=== PATIENT | female | born 1985 | race Caucasian/White ===

== ENCOUNTER 2019-01-19 16:10 | Emergency (ER) | payer BC ==
[2019-01-19] MEDS ORDERED: LORazepam 2 MG/ML INJ IV STA ×2 (17:20→19:08)
[2019-01-19] MEDS ORDERED: LIDOCAINE 1% INJ 10MG/ML (20 ML MDV) SQ ONE (17:20)
[2019-01-19 17:46] LABS: Appearance,Urine Clear (Clear); Bacteria,Urine Occasional /hpf; Bilirubin,Urine Negative (Negative); Blood,Urine Negative (Negative); Color,Urine Colorless; Glucose,Urine (UA) Negative (Negative); Ketones,Urine Negative (Negative); Leukocyte Esterase,Urine Trace (Negative); Mucus,Urine Rare /hpf; Nitrite,Urine Negative (Negative); PH, Urine 5.5 (5.0-8.0); Protein,Urine Negative (Negative); RBC,Urine 1 /hpf (0-5); Specific Gravity,Urine 1.003 (1.001-1.035); Squamous Epithelial Cell,Urine <1 /hpf (0-4); Urobilinogen,Urine <2.0 mg/dL (<2.0)
[2019-01-19 18:11] LABS: Basophils % (A) 0 %; Eosinophils # (A) 0.1 k/uL (0-0.7); Eosinophils % (A) 1 %; HGB 13.4 gm/dL (11.4-16.0); Lymphocytes # (A) 2.1 k/uL (1.0-4.8); Lymphocytes % (A) 17 %; MCH 30.9 pg (25.0-35.0); MCHC 33.5 g/dL (31.0-37.0); MCV 92.5 fL (80.0-100.0); Mean Platelet Volume 7.3; Monocytes # (A) 0.5 k/uL (0-1.0); Monocytes % (A) 4 %; Neutrophils # (A) 9.3 k/uL (1.3-7.7); Neutrophils % (A) 77 %; Platelet Count 263 k/uL (150-450); RBC 4.33 m/uL (3.80-5.40); RDW 14.1 % (11.5-15.5); WBC 12.2 k/uL (3.8-10.6)
[2019-01-19 18:21] LABS: ALT 15 U/L (9-52); AST 23 U/L (14-36); African American GFR (CKD) >90 (>60 ml/min/1.73 sqM); Albumin 4.7 g/dL (3.5-5.0); Alkaline Phosphatase 86 U/L (38-126); Anion Gap 12 mmol/L; Blood Urea Nitrogen 9 mg/dL (7-17); Calcium 9.7 mg/dL (8.4-10.2); Carbon Dioxide 22 mmol/L (22-30); Chloride 107 mmol/L (98-107); Glucose 95 mg/dL (74-99); Potassium 4.2 mmol/L (3.5-5.1); Sodium 141 mmol/L (137-145); Total Bilirubin 0.6 mg/dL (0.2-1.3); Total Protein 8.6 g/dL (6.3-8.2)
[2019-01-19] MEDS ORDERED: KETOROLAC 30 MG/ML 1 ML VIAL IVP STA (18:21)
--- NOTE | 2019-01-19 18:34 | ED ---
Skin/Abscess/FB HPI - General Chief complaint: Skin/Abscess/Foreign Body Stated complaint: Cyst on tailbone Time Seen by Provider: 01/19/19 16:42 Source: patient Mode of arrival: ambulatory Limitations: no limitations - History of Present Illness Initial comments: Patient is a 33-year-old female presenting to the emergency Department with complaints of an abscess on her tailbone 5 days. Patient states she noticed an increase in pain presently 5 days ago, went to see her PCP 3 days ago and she was started on Bactrim. Patient then had an appointment with Dr. Benz today to have the area drained. Patient states she has severe anxiety towards needles and they were not able to perform the procedure in the office secondary to not having Ativan. Dr. Benz suggested she come to the ER for I&D and he will surgically clean out the wound next week. Patient states her pain has greatly increased last few days. Patient is also feeling intermittent warmth and chills. Patient denies nausea, vomiting, abdominal pain. Upon arrival to ER, vital signs stable, afebrile. - Related Data Home Medications Medication Instructions Recorded Confirmed Levothyroxine Sodium [Synthroid] 88 mcg PO DAILY 01/19/19 01/19/19 Nitrofurantoin Macrocrystal 100 mg PO DAILY PRN 01/19/19 01/19/19 [Macrodantin] Sulfamethox-Tmp 800-160Mg [Bactrim 1 tab PO Q12H 01/19/19 01/19/19 DS 800-160 mg] Allergies Allergy/AdvReac Type Severity Reaction Status Date / Time betamethasone Allergy Unknown Verified 01/19/19 16:44 [From [employer]] latex Allergy Unknown Verified 01/19/19 16:44 Pertussis Vaccines Allergy Unknown Verified 01/19/19 16:44 Review of Systems ROS Statement: Those systems with pertinent positive or pertinent negative responses have been documented in the HPI. ROS Other: All systems not noted in ROS Statement are negative. Past Medical History Past Medical History: Thyroid Disorder Additional Past Medical History / Comment(s): UTI History of Any Multi-Drug Resistant Organisms: None Reported Past Surgical History: Appendectomy, Breast Surgery, Hernia Repair, Orthopedic Surgery Past Psychological History: No Psychological Hx Reported Smoking Status: Never smoker Past Alcohol Use History: None Reported Past Drug Use History: None Reported General Exam - General Exam Comments Initial Comments: GENERAL: Well-appearing, well-nourished and in no acute distress. Patient does appear anxious. HEAD: Atraumatic, normocephalic. EYES: Pupils equal round and reactive to light, extraocular movements intact, sclera anicteric, conjunctiva are normal. ENT: TMs normal, nares patent, oropharynx clear without exudates. Moist mucous membranes. NECK: Normal range of motion, supple without lymphadenopathy or JVD. LUNGS: Breath sounds clear to auscultation bilaterally and equal. No wheezes rales or rhonchi. HEART: Regular rate and rhythm without murmurs, rubs or gallops. ABDOMEN: Soft, nontender, normoactive bowel sounds. No guarding, no rebound. No masses appreciated. : Deferred EXTREMITIES: Normal range of motion, no pitting or edema. No clubbing or cyanosis. NEUROLOGICAL: Cranial nerves II through XII grossly intact. Normal speech, normal gait. PSYCH: Normal mood, normal affect. SKIN: Warm, Dry, normal turgor, no rashes. Patient has a moderate area, 2cm diameter, of erythema and induration on the right upper glut consistent with abscess . No area of fluctuance. Painful to the touch. Limitations: no limitations Course Vital Signs 01/19/19 01/19/19 01/19/19 16:16 18:20 19:00 Temperature 99.0 F Pulse Rate 106 H 115 H 103 H Respiratory 18 20 20 Rate Blood Pressure 117/78 100/67 102/55 O2 Sat by Pulse 100 99 99 Oximetry Procedures - Incision & Drainage Consent Obtained: verbal consent Indication: Abscess Site: other (Right glute, pilondinal) Size (cm): 2 (2cm diameter) Anesthetic Used: lidocaine 1% Amount (mLs): 3 I&D Cleaning Method: Chloroprep Sterile Field Used?: Yes Scalpel Used: #11 I&D Drainage Obtained: Pus (small amount), Blood Culture Obtained?: No Patient Tolerated Procedure: well Medical Decision Making - Medical Decision Making Patient is a 33-year-old female presenting with a pilonidal abscess for approximately 4-5 days. Pt went to Dr. Benz's office today for possible I&D however she was sent to the ER after they did not have Ativan in the office for her anxiety. Patient has severe anxiety towards needles. On exam patient has moderate area of erythema and induration on the right upper glute. Patient has pain with palpation. Patient denies fever, chills, nausea, vomiting. Patient is currently on Bactrim for 2 days now. After patient received 2 of Ativan and Toradol, an I&D was performed. Small amount of purulent fluid was drained out but mostly blood. The area has a lot of induration. Patient tolerated procedure well. It was discussed with patient that she needs to continue with h eat packs and antibiotics as well as motrin and tylenol for pain. Follow-up with Dr. Benz next week as discussed. Patient is in agreement with this plan of care. Return parameters were discussed with the patient she verbalized understanding. Patient is stable for discharge at this time. Case discussed with Dr. Lee. - Lab Data Result diagrams: 01/19/19 18:00 01/19/19 18:00 Lab Results 01/19/19 01/19/19 01/19/19 Range/Units 17:20 18:00 18:00 WBC 12.2 H (3.8-10.6) k/uL RBC 4.33 (3.80-5.40) m/uL Hgb 13.4 (11.4-16.0) gm/dL Hct 40.0 (34.0-46.0) % MCV 92.5 (80.0-100.0) fL MCH 30.9 (25.0-35.0) pg MCHC 33.5 (31.0-37.0) g/dL RDW 14.1 (11.5-15.5) % Plt Count 263 (150-450) k/uL Neutrophils % 77 % Lymphocytes % 17 % Monocytes % 4 % Eosinophils % 1 % Basophils % 0 % Neutrophils # 9.3 H (1.3-7.7) k/uL Lymphocytes # 2.1 (1.0-4.8) k/uL Monocytes # 0.5 (0-1.0) k/uL Eosinophils # 0.1 (0-0.7) k/uL Basophils # 0.0 (0-0.2) k/uL Sodium 141 (137-145) mmol/L Potassium 4.2 (3.5-5.1) mmol/L Chloride 107 (98-107) mmol/L Carbon Dioxide 22 (22-30) mmol/L Anion Gap 12 mmol/L BUN 9 (7-17) mg/dL Creatinine 0.89 (0.52-1.04) mg/dL Est GFR (CKD-EPI)AfAm >90 (>60 ml/min/1.73 sqM) Est GFR (CKD-EPI)NonAf 86 (>60 ml/min/1.73 sqM) Glucose 95 (74-99) mg/dL Plasma Lactic Acid Crow (0.7-2.0) mmol/L Calcium 9.7 (8.4-10.2) mg/dL Total Bilirubin 0.6 (0.2-1.3) mg/dL AST 23 (14-36) U/L ALT 15 (9-52) U/L Alkaline Phosphatase 86 (38-126) U/L Total Protein 8.6 H (6.3-8.2) g/dL Albumin 4.7 (3.5-5.0) g/dL Urine Color Colorless Urine Appearance Clear (Clear) Urine pH 5.5 (5.0-8.0) Ur Specific [place] 1.003 (1.001-1.035) Urine Protein Negative (Negative) Urine Glucose (UA) Negative (Negative) Urine Ketones Negative (Negative) Urine Blood Negative (Negative) Urine Nitrite Negative (Negative) Urine Bilirubin Negative (Negative) Urine Urobilinogen <2.0 (<2.0) mg/dL Ur Leukocyte Esterase Trace H (Negative) Urine RBC 1 (0-5) /hpf Urine WBC 3 (0-5) /hpf Ur Squamous Epith Cells <1 (0-4) /hpf Urine Bacteria Occasional H (None) /hpf Urine Mucus Rare H (None) /hpf 01/19/19 Range/Units 18:00 WBC (3.8-10.6) k/uL RBC (3.80-5.40) m/uL Hgb (11.4-16.0) gm/dL Hct (34.0-46.0) % MCV (80.0-100.0) fL MCH (25.0-35.0) pg MCHC (31.0-37.0) g/dL RDW (11.5-15.5) % Plt Count (150-450) k/uL Neutrophils % % Lymphocytes % % Monocytes % % Eosinophils % % Basophils % % Neutrophils # (1.3-7.7) k/uL Lymphocytes # (1.0-4.8) k/uL Monocytes # (0-1.0) k/uL Eosinophils # (0-0.7) k/uL Basophils # (0-0.2) k/uL Sodium (137-145) mmol/L Potassium (3.5-5.1) mmol/L Chloride (98-107) mmol/L Carbon Dioxide (22-30) mmol/L Anion Gap mmol/L BUN (7-17) mg/dL Creatinine (0.52-1.04) mg/dL Est GFR (CKD-EPI)AfAm (>60 ml/min/1.73 sqM) Est GFR (CKD-EPI)NonAf (>60 ml/min/1.73 sqM) Glucose (74-99) mg/dL Plasma Lactic Acid Crow 1.5 (0.7-2.0) mmol/L Calcium (8.4-10.2) mg/dL Total Bilirubin (0.2-1.3) mg/dL AST (14-36) U/L ALT (9-52) U/L Alkaline Phosphatase (38-126) U/L Total Protein (6.3-8.2) g/dL Albumin (3.5-5.0) g/dL Urine Color Urine Appearance (Clear) Urine pH (5.0-8.0) Ur Specific [place] (1.001-1.035) Urine Protein (Negative) Urine Glucose (UA) (Negative) Urine Ketones (Negative) Urine Blood (Negative) Urine Nitrite (Negative) Urine Bilirubin (Negative) Urine Urobilinogen (<2.0) mg/dL Ur Leukocyte Esterase (Negative) Urine RBC (0-5) /hpf Urine WBC (0-5) /hpf Ur Squamous Epith Cells (0-4) /hpf Urine Bacteria (None) /hpf Urine Mucus (None) /hpf Disposition Clinical Impression: Pilonidal abscess Disposition: HOME SELF-CARE Condition: Stable Instructions (If sedation given, give patient instructions): Abscess (ED) Additional Instructions: Please return to the Emergency Department if symptoms worsen or any other concerns. Continue with Tylenol/Motrin for pain relief. Follow-up with Dr. Benz next week as discussed. Is patient prescribed a controlled substance at d/c from ED?: No Referrals: Shant Wallace MD [Primary Care Provider] - 1-2 days
[2019-01-19 20:48] VITALS: BP 102/65; PULSE 88; RESP 20; TEMP 98.2
== END 2019-01-19 20:40 | disposition home or self-care (01) ==
LOC: EC 16:10
DX: L05.01 Pilonidal cyst with abscess (principal); F41.9 Anxiety disorder, unspecified; E07.9 Disorder of thyroid, unspecified; Z79.890 Hormone replacement therapy; Z88.8 Allergy status to other drugs, medicaments and biological substances; Z91.040 Latex allergy status; Z88.7 Allergy status to serum and vaccine
CPT/HCPCS: 36415; 80053; 83605; 85025; 81001; 99283; 10080; 96374; 96375; 96376; J2060; J2001; J1885

== ENCOUNTER 2019-01-22 01:23 | Emergency (ER) | payer BC ==
[2019-01-22] MEDS ORDERED: KETOROLAC 30 MG/ML 1 ML VIAL IVP STA (02:31)
[2019-01-22] MEDS: SODIUM CHLORIDE 0.9% 500 ML 500 ML IV SCH (02:51)
--- NOTE | 2019-01-22 02:55 | XR ---
EXAM: XR Abdomen, 2 Views CLINICAL HISTORY: Abdominal pain TECHNIQUE: Frontal view of the abdomen/pelvis with upright view of the abdomen. COMPARISON: None. FINDINGS: Lower thorax: Heart is normal in size. Lung bases are clear. Intraperitoneal space: No free air Gastrointestinal tract: Mild to moderate quantity of stool. Nonspecific bowel gas pattern. No dilation. Bones/joints: Gentle levoscoliosis of the freckle lumbar spine. IMPRESSION: Mild to moderate quantity of stool. Nonspecific bowel gas pattern.
[2019-01-22 03:26] LABS: Appearance,Urine Clear (Clear); Bacteria,Urine Rare /hpf; Bilirubin,Urine Negative (Negative); Blood,Urine Trace (Negative); Color,Urine Colorless; Glucose,Urine (UA) Negative (Negative); Ketones,Urine Negative (Negative); Leukocyte Esterase,Urine Negative (Negative); Mucus,Urine Rare /hpf; Nitrite,Urine Negative (Negative); PH, Urine 5.5 (5.0-8.0); Protein,Urine Negative (Negative); RBC,Urine 1 /hpf (0-5); Specific Gravity,Urine 1.005 (1.001-1.035); Squamous Epithelial Cell,Urine 1 /hpf (0-4); Urobilinogen,Urine <2.0 mg/dL (<2.0); WBC,Urine 1 /hpf (0-5)
[2019-01-22 03:30] LABS: Albumin 4.3 g/dL (3.5-5.0); Calcium 9.3 mg/dL (8.4-10.2); Potassium 3.9 mmol/L (3.5-5.1); Total Bilirubin 0.4 mg/dL (0.2-1.3); Total Protein 7.9 g/dL (6.3-8.2)
[2019-01-22 03:59] LABS: Basophils # (A) 0.1 k/uL (0-0.2); Basophils % (A) 1 %; Eosinophils # (A) 0.2 k/uL (0-0.7); Eosinophils % (A) 2 %; HCT 38.2 % (34.0-46.0); Lymphocytes # (A) 1.5 k/uL (1.0-4.8); Lymphocytes % (A) 15 %; MCH 31.2 pg (25.0-35.0); MCV 91.6 fL (80.0-100.0); Monocytes # (A) 0.6 k/uL (0-1.0); Monocytes % (A) 6 %; Neutrophils # (A) 7.4 k/uL (1.3-7.7); Neutrophils % (A) 74 %; Platelet Count 232 k/uL (150-450); RBC 4.17 m/uL (3.80-5.40); WBC 9.9 k/uL (3.8-10.6)
[2019-01-22] MEDS ORDERED: ACET/COD 300 MG/30 MG STARTER PACK 6 TAB BTL PO STA (04:37)
[2019-01-22] MEDS ORDERED: ONDANSETRON 4 MG ODT STARTER PACK 2 TAB BTL PO STA (04:37)
--- NOTE | 2019-01-22 04:40 | ED ---
General Adult HPI - General Chief complaint: Dizziness Stated complaint: nausea/dizziness Time Seen by Provider: 01/22/19 01:40 Source: patient Mode of arrival: ambulatory Limitations: no limitations - History of Present Illness Initial comments: 33-year-old female patient presents to the emergency department today for evaluation of dizziness and abdominal pain. Patient recently was diagnosed with pilonidal abscess and did have incision and drainage recently in this emergency department. Patient states that the pain has been worsening to the area. States she's had minimal drainage. States that she has felt chilled but denies any known fever. States she has been nauseated but has had no vomiting. Patient is reporting generalized abdominal cramping. States that she has not had a bowel movement in the last 3 days. She is concerned she may have a bowel obstruction. Denies history of abdominal surgery or obstruction. Patient denies any recent rash, shortness breath, chest pain, back pain, numbness, tingling, dizziness, weakness, hematuria, dysuria, urinary urgency, urinary frequency, headache, visual changes, or any other complaints. - Related Data Home Medications Medication Instructions Recorded Confirmed Levothyroxine Sodium [Synthroid] 88 mcg PO DAILY 01/19/19 01/19/19 Nitrofurantoin Macrocrystal 100 mg PO DAILY PRN 01/19/19 01/19/19 [Macrodantin] Sulfamethox-Tmp 800-160Mg [Bactrim 1 tab PO Q12H 01/19/19 01/19/19 DS 800-160 mg] Previous Rx's Medication Instructions Recorded Docusate [Colace] 100 mg PO DAILY #15 capsule 01/22/19 Sulfamethoxazole/Trimethoprim 2 each PO BID #28 tablet 01/22/19 [Bactrim DS 800-160 mg] Allergies Allergy/AdvReac Type Severity Reaction Status Date / Time betamethasone Allergy Unknown Verified 01/19/19 16:44 [From [employer]] latex Allergy Unknown Verified 01/19/19 16:44 Pertussis Vaccines Allergy Unknown Verified 01/19/19 16:44 Review of Systems ROS Statement: Those systems with pertinent positive or pertinent negative responses have been documented in the HPI. ROS Other: All systems not noted in ROS Statement are negative. Past Medical History Past Medical History: Thyroid Disorder Additional Past Medical History / Comment(s): UTI History of Any Multi-Drug Resistant Organisms: None Reported Past Surgical History: Appendectomy, Breast Surgery, Hernia Repair, Orthopedic Surgery Past Psychological History: No Psychological Hx Reported Smoking Status: Never smoker Past Alcohol Use History: None Reported Past Drug Use History: None Reported General Exam Limitations: no limitations General appearance: alert, in no apparent distress, other (This is a well- developed, well-nourished adult female patient in no acute distress. Vital signs upon presentation are temperature 98.5F, pulse 95, respirations 20, blood pressure 105/70, pulse ox 100% on room air.) Eye exam: Present: normal appearance, PERRL, EOMI. Absent: scleral icterus, conjunctival injection, periorbital swelling ENT exam: Present: normal exam, normal oropharynx, mucous membranes moist Respiratory exam: Present: normal lung sounds bilaterally. Absent: respiratory distress, wheezes, rales, rhonchi, stridor Cardiovascular Exam: Present: regular rate, normal rhythm, normal heart sounds. Absent: systolic murmur, diastolic murmur, rubs, gallop, clicks GI/Abdominal exam: Present: soft, normal bowel sounds. Absent: distended, tenderness, guarding, rebound, rigid External exam: Present: other (pilonoidal abscess to right upper gluteal cleft. There is surrounding induration and erythema. No current drainage. ) Neurological exam: Present: alert, oriented X3, CN II-XII intact Psychiatric exam: Present: normal affect, normal mood Skin exam: Present: warm, dry, intact, normal color. Absent: rash Course Vital Signs 01/22/19 01/22/19 01:31 04:54 Temperature 98.5 F 99.1 F Pulse Rate 95 92 Respiratory 20 18 Rate Blood Pressure 105/70 96/54 O2 Sat by Pulse 100 100 Oximetry Medical Decision Making - Medical Decision Making 33-year-old female patient presents to the emergency department today for evaluation of dizziness, abdominal pain, nausea, and evaluation of her pilonidal abscess. Physical examination revealed generalized abdominal discomfort, abdomen is soft. There is evidence for pilonidal abscess to the right upper gluteal cleft. No current drainage. There is surrounding erythema and induration. This has been incised. Labs reviewed and are unremarkable. Vital signs are within normal ranges, no fever. I did discuss findings and results with the patient. After receiving medication and IV fluids here in the emergency department she is feeling better. We'll increase her dosage of Bactrim to 2 tablets twice daily. She'll be given starter packs for pain medication, nausea medication and prescription for stool softener. She is instructed to follow-up with her surgeon on Wednesday. Return parameters were discussed in detail. She verbalizes understanding and agrees with this plan. - Lab Data Result diagrams: 01/22/19 03:05 01/22/19 03:05 Lab Results 01/22/19 01/22/19 01/22/19 Range/Units 03:05 03:05 03:05 WBC 9.9 (3.8-10.6) k/uL RBC 4.17 (3.80-5.40) m/uL Hgb 13.0 (11.4-16.0) gm/dL Hct 38.2 (34.0-46.0) % MCV 91.6 (80.0-100.0) fL MCH 31.2 (25.0-35.0) pg MCHC 34.0 (31.0-37.0) g/dL RDW 14.0 (11.5-15.5) % Plt Count 232 (150-450) k/uL Neutrophils % 74 % Lymphocytes % 15 % Monocytes % 6 % Eosinophils % 2 % Basophils % 1 % Neutrophils # 7.4 (1.3-7.7) k/uL Lymphocytes # 1.5 (1.0-4.8) k/uL Monocytes # 0.6 (0-1.0) k/uL Eosinophils # 0.2 (0-0.7) k/uL Basophils # 0.1 (0-0.2) k/uL Sodium 140 (137-145) mmol/L Potassium 3.9 (3.5-5.1) mmol/L Chloride 106 (98-107) mmol/L Carbon Dioxide 22 (22-30) mmol/L Anion Gap 12 mmol/L BUN 15 (7-17) mg/dL Creatinine 1.04 (0.52-1.04) mg/dL Est GFR (CKD-EPI)AfAm 83 (>60 ml/min/1.73 sqM) Est GFR (CKD-EPI)NonAf 72 (>60 ml/min/1.73 sqM) Glucose 98 (74-99) mg/dL Plasma Lactic Acid Crow 1.2 (0.7-2.0) mmol/L Calcium 9.3 (8.4-10.2) mg/dL Total Bilirubin 0.4 (0.2-1.3) mg/dL AST 22 (14-36) U/L ALT 17 (9-52) U/L Alkaline Phosphatase 79 (38-126) U/L Total Protein 7.9 (6.3-8.2) g/dL Albumin 4.3 (3.5-5.0) g/dL Urine Color Urine Appearance (Clear) Urine pH (5.0-8.0) Ur Specific [place] (1.001-1.035) Urine Protein (Negative) Urine Glucose (UA) (Negative) Urine Ketones (Negative) Urine Blood (Negative) Urine Nitrite (Negative) Urine Bilirubin (Negative) Urine Urobilinogen (<2.0) mg/dL Ur Leukocyte Esterase (Negative) Urine RBC (0-5) /hpf Urine WBC (0-5) /hpf Ur Squamous Epith Cells (0-4) /hpf Urine Bacteria (None) /hpf Urine Mucus (None) /hpf 01/22/19 Range/Units 03:05 WBC (3.8-10.6) k/uL RBC (3.80-5.40) m/uL Hgb (11.4-16.0) gm/dL Hct (34.0-46.0) % MCV (80.0-100.0) fL MCH (25.0-35.0) pg MCHC (31.0-37.0) g/dL RDW (11.5-15.5) % Plt Count (150-450) k/uL Neutrophils % % Lymphocytes % % Monocytes % % Eosinophils % % Basophils % % Neutrophils # (1.3-7.7) k/uL Lymphocytes # (1.0-4.8) k/uL Monocytes # (0-1.0) k/uL Eosinophils # (0-0.7) k/uL Basophils # (0-0.2) k/uL Sodium (137-145) mmol/L Potassium (3.5-5.1) mmol/L Chloride (98-107) mmol/L Carbon Dioxide (22-30) mmol/L Anion Gap mmol/L BUN (7-17) mg/dL Creatinine (0.52-1.04) mg/dL Est GFR (CKD-EPI)AfAm (>60 ml/min/1.73 sqM) Est GFR (CKD-EPI)NonAf (>60 ml/min/1.73 sqM) Glucose (74-99) mg/dL Plasma Lactic Acid Crow (0.7-2.0) mmol/L Calcium (8.4-10.2) mg/dL Total Bilirubin (0.2-1.3) mg/dL AST (14-36) U/L ALT (9-52) U/L Alkaline Phosphatase (38-126) U/L Total Protein (6.3-8.2) g/dL Albumin (3.5-5.0) g/dL Urine Color Colorless Urine Appearance Clear (Clear) Urine pH 5.5 (5.0-8.0) Ur Specific [place] 1.005 (1.001-1.035) Urine Protein Negative (Negative) Urine Glucose (UA) Negative (Negative) Urine Ketones Negative (Negative) Urine Blood Trace H (Negative) Urine Nitrite Negative (Negative) Urine Bilirubin Negative (Negative) Urine Urobilinogen <2.0 (<2.0) mg/dL Ur Leukocyte Esterase Negative (Negative) Urine RBC 1 (0-5) /hpf Urine WBC 1 (0-5) /hpf Ur Squamous Epith Cells 1 (0-4) /hpf Urine Bacteria Rare H (None) /hpf Urine Mucus Rare H (None) /hpf Disposition Clinical Impression: Pilonidal abscess, Dizziness, Abdominal pain Disposition: HOME SELF-CARE Condition: Good Instructions (If sedation given, give patient instructions): Pilonidal Cyst (ED), Abdominal Pain (ED), Dizziness (ED) Additional Instructions: Increase bactrim dosage to two tablets twice per day. Increase fluids. Follow up with your surgeon Wednesday. Return to the emergency department for any new, worsening, or concerning symptoms. Prescriptions: Sulfamethoxazole/Trimethoprim [Bactrim DS 800-160 mg] 2 each PO BID #28 tablet Docusate [Colace] 100 mg PO DAILY #15 capsule Is patient prescribed a controlled substance at d/c from ED?: No Referrals: Shant Wallace MD [Primary Care Provider] - 1-2 days Mark Benz MD [STAFF PHYSICIAN] - 1-2 days Time of Disposition: 04:39
[2019-01-22 04:55] VITALS: BP 96/54; PULSE 92; RESP 18; TEMP 99.1
== END 2019-01-22 04:55 | disposition home or self-care (01) ==
LOC: EC 01:23
DX: L05.01 Pilonidal cyst with abscess (principal); R42 Dizziness and giddiness; R10.9 Unspecified abdominal pain; E07.9 Disorder of thyroid, unspecified; Z79.890 Hormone replacement therapy; Z88.8 Allergy status to other drugs, medicaments and biological substances; Z88.7 Allergy status to serum and vaccine; Z91.040 Latex allergy status
CPT/HCPCS: 36415; 80053; 83605; 85025; 81001; 87040; 74018; 99284; 96374; 96361 ×2; J1885; S0119

== ENCOUNTER 2019-01-31 09:44 | Day surgery (SDC) | payer BC ==
[2019-01-30 08:33] VITALS: BMI 23.8
[~2019-01-31 09:44] MED LIST: HEPARIN SODIUM,PORCINE 5,000 UNIT/ML 1 ML VIAL SQ ONE; HYDROmorphone 0.5 MG/0.5 ML SYRINGE IVP PRN; KETOROLAC 30 MG/ML 1 ML VIAL IVP SCH; LACTATED RINGERS 1,000 ML IV SCH; LIDOCAINE 1% 20 ML VIAL (10MG/ML) FOR IV START INTRADERMA PRN; METOCLOPRAMIDE 5 MG/ML 2 ML VIAL IVP PRN; ONDANSETRON 4 MG/2 ML VIAL IVP ONE; SCOPOLAMINE 1.5MG/72HR PATCH TRANSDERM ONE; metroNIDAZOLE-NS PMX 500 MG in SALINE 1 100ML.BAG IVPB ONE
[2019-01-31 10:38] VITALS: RESP 18; TEMP 97.5
[2019-01-31] MEDS ORDERED: DEXAMETHASONE SOD PHOSPHATE 10 MG/ML 1 ML VIAL IV ONE (10:46)
[2019-01-31] MEDS ORDERED: MIDAZOLAM (PF) 2 MG/2 ML VIAL IVP ONE (10:48)
--- NOTE | 2019-01-31 10:48 | P.GSHP ---
History of Present Illness H&P Date: 01/31/19 Chief Complaint: Chronically inflamed pilonidal cyst This a 31-year-old female with history of a chronically inflamed pilonidal cyst. Patient was assessed today for excision. Patient aware that we'll be packed after surgery and require local wound care. Past Medical History Past Medical History: Pulmonary Embolus (PE), Thyroid Disorder Additional Past Medical History / Comment(s): pilonidal cyst, possible current sinus infection, uterine polyps History of Any Multi-Drug Resistant Organisms: None Reported Past Surgical History: Appendectomy, Breast Surgery, Hernia Repair, Orthopedic Surgery Past Anesthesia/Blood Transfusion Reactions: Postoperative Nausea & Vomiting (PONV) Smoking Status: Former smoker - Past Family History Mother Family Medical History: No Reported History Medications and Allergies Home Medications Medication Instructions Recorded Confirmed Type Levothyroxine Sodium [Synthroid] 88 mcg PO DAILY 01/19/19 01/31/19 History Sulfamethox-Tmp 800-160Mg [Bactrim 1 tab PO TID 01/19/19 01/31/19 History DS 800-160 mg] Aspirin [Adult Low Dose Aspirin EC] 81 mg PO DAILY 01/30/19 01/31/19 History Allergies Allergy/AdvReac Type Severity Reaction Status Date / Time betamethasone Allergy Unknown Verified 01/31/19 10:33 [From [employer]] latex Allergy Rash/Hives Verified 01/30/19 08:26 lorazepam [From Ativan] Allergy Unknown Verified 01/31/19 10:33 Pertussis Vaccines Allergy Rash/Hives Verified 01/30/19 08:26 Surgical - Exam Vital Signs Temp Pulse Resp BP Pulse Ox 97.5 F L 95 18 113/77 96 01/31/19 10:36 01/31/19 10:36 01/31/19 10:36 01/31/19 10:36 01/31/19 10:36 - General well developed, well nourished, no distress - Eyes PERRL - ENT normal pinna - Neck no masses - Respiratory normal expansion - Cardiovascular Rhythm: regular - Abdomen Abdomen: soft, non tender Assessment and Plan Assessment: Pilonidal cyst. We'll perform excision.
[2019-01-31] MEDS ORDERED: HEPARIN SODIUM,PORCINE 5,000 UNIT/ML 1 ML VIAL SQ ONE (10:52)
[2019-01-31 10:53] LABS: Glucose,Whole Blood 82 mg/dL (75-99)
[2019-01-31] MEDS ORDERED: PROPOFOL 10 MG/ML 20 ML VIAL IV ONE (11:06)
[2019-01-31] MEDS ORDERED: MIDAZOLAM 2 MG/2 ML VIAL ONE (11:06)
[2019-01-31] MEDS ORDERED: KETAMINE 10 MG/ML 20 ML VIAL ONE (11:06)
[2019-01-31] MEDS ORDERED: BUPIVACAINE (PF) 0.5% 30 ML VIAL SQ ONE (11:16)
[2019-01-31] MEDS ORDERED: BUPIVACAIN-EPI 0.25%-1:200,000 30 ML VIAL SQ ONE (11:16)
--- NOTE | 2019-01-31 11:32 | P.OP ---
Date of Procedure: 01/31/19 Preoperative Diagnosis: Chronically inflamed pilonidal cyst with abscess Postoperative Diagnosis: Chronically inflamed pilonidal cyst with abscess Procedure(s) Performed: Excision of pilonidal cyst Anesthesia: MAC Surgeon: Mark Benz Estimated Blood Loss (ml): 5 Pathology: other (Pilonidal cyst) Condition: stable Disposition: PACU Description of Procedure: The patient's placed on the operating table in the prone position she received IV sedation. The hepatocystic was prepped and draped usual sterile fashion. Elliptical skin incision was made around panel cyst and then using electrocautery the panel cyst was excised. The Bovie was used for hemostasis. The wound was packed with dry Kerlix. Patient top she will was sent to recovery room in stable condition.
[2019-01-31] MEDS ORDERED: ACETAMINOPHEN TAB 325 MG TAB PO ONE (12:50)
[2019-01-31 14:09] VITALS: BP 91/61; PULSE 87
== END 2019-01-31 13:38 | disposition home or self-care (01) ==
LOC: OR 09:44
PROVIDERS: ATTEND Surgery
DX: L05.01 Pilonidal cyst with abscess (principal); E07.9 Disorder of thyroid, unspecified; Z86.711 Personal history of pulmonary embolism; Z87.891 Personal history of nicotine dependence; Z79.890 Hormone replacement therapy; Z79.82 Long term (current) use of aspirin; Z79.2 Long term (current) use of antibiotics; Z91.040 Latex allergy status; Z88.7 Allergy status to serum and vaccine; Z88.8 Allergy status to other drugs, medicaments and biological substances; Z88.5 Allergy status to narcotic agent; Z90.49 Acquired absence of other specified parts of digestive tract; Z87.42 Personal history of other diseases of the female genital tract; Z98.890 Other specified postprocedural states
CPT/HCPCS: 81025; 88304; 11770; J2250 ×2; J1644; J1100; J0690; J2405; J2704

== ENCOUNTER 2019-02-08 14:42 | Inpatient (IN) | payer BC ==
[2019-02-08] MEDS ORDERED: SODIUM CHLORIDE 0.9% 1,000 ML IV ONE (15:30)
--- NOTE | 2019-02-08 15:42 | ED ---
Skin/Abscess/FB HPI - General Source: patient, RN notes reviewed, old records reviewed Mode of arrival: ambulatory <Betsy Mendez - Last Filed: 02/08/19 19:55> <Dana Candelaria - Last Filed: 02/09/19 06:38> - General Chief complaint: Skin/Abscess/Foreign Body Stated complaint: Hemorrhage Time Seen by Provider: 02/08/19 15:04 - History of Present Illness Initial comments: This Patient is a 33-year-old female. She presents emergency department today for bleeding from her pilonidal cyst. Patient reports that she had surgery approximately one week ago to remove the pilonidal cyst. This was done by Dr. Parsons. Patient states that she's had at home wound care and visiting nurses come to dress her wound. Patient reports that she saw Dr. Newman yesterday was packed. Patient reports that she had to be visiting nurses pack her wound in between that time she started noticed severe bleeding. She had a visiting nurse returned and hold pressure for over an hour and the wound continues to bleed. Patient states she soaked through multiple towels as well as multiple AVD pads. Patient states that she has history of blood clots, and has been taking aspirin because she's been laying around. She states that she did have some minor absent of chest pain. She states that she wonders if this could just be in her head. (Betsy Mendez) - Related Data Home Medications Medication Instructions Recorded Confirmed Levothyroxine Sodium [Synthroid] 88 mcg PO DAILY 01/19/19 02/08/19 Aspirin [Adult Low Dose Aspirin EC] 81 mg PO DAILY 01/30/19 02/08/19 Acetaminophen [Tylenol Extra 1,000 mg PO Q6H PRN 02/08/19 02/08/19 Strength] Ascorbic Acid [Vitamin C] 500 mg PO DAILY 02/08/19 02/08/19 Docusate [Colace] 100 mg PO DAILY 02/08/19 02/08/19 Multivitamins, Thera [Multivitamin 1 tab PO DAILY 02/08/19 02/08/19 (formulary)] Allergies Allergy/AdvReac Type Severity Reaction Status Date / Time betamethasone Allergy Unknown Verified 02/08/19 18:40 [From Celestone] latex Allergy Rash/Hives Verified 02/08/19 18:40 lorazepam [From Ativan] Allergy Unknown Verified 02/08/19 18:40 Pertussis Vaccines Allergy Rash/Hives Verified 02/08/19 18:40 Review of Systems ROS Other: All systems not noted in ROS Statement are negative. <Betsy Mendez - Last Filed: 02/08/19 19:55> ROS Other: All systems not noted in ROS Statement are negative. <Dana Candelaria - Last Filed: 02/09/19 06:38> ROS Statement: Those systems with pertinent positive or pertinent negative responses have been documented in the HPI. Past Medical History Past Medical History: Pulmonary Embolus (PE), Thyroid Disorder Additional Past Medical History / Comment(s): pilonidal cyst, possible current sinus infection, uterine polyps History of Any Multi-Drug Resistant Organisms: None Reported Past Surgical History: Appendectomy, Breast Surgery, Hernia Repair, Orthopedic Surgery Additional Past Surgical History / Comment(s): cyst drained Past Anesthesia/Blood Transfusion Reactions: Postoperative Nausea & Vomiting (PONV) Past Psychological History: No Psychological Hx Reported Smoking Status: Former smoker Past Alcohol Use History: None Reported Past Drug Use History: None Reported - Past Family History Mother Family Medical History: No Reported History <Betsy Mendez - Last Filed: 02/08/19 19:55> General Exam Head exam: Present: atraumatic, normocephalic, normal inspection Eye exam: Present: normal appearance, PERRL, EOMI. Absent: scleral icterus, conjunctival injection, periorbital swelling ENT exam: Present: normal exam, mucous membranes moist Neck exam: Present: normal inspection. Absent: tenderness, meningismus, lymphadenopathy Respiratory exam: Present: normal lung sounds bilaterally. Absent: respiratory distress, wheezes, rales, rhonchi, stridor Cardiovascular Exam: Present: regular rate, normal rhythm, normal heart sounds. Absent: systolic murmur, diastolic murmur, rubs, gallop, clicks GI/Abdominal exam: Present: soft, normal bowel sounds. Absent: distended, tenderness, guarding, rebound, rigid Extremities exam: Present: normal inspection, full ROM, normal capillary refill. Absent: tenderness, pedal edema, joint swelling, calf tenderness Back exam: Present: normal inspection, other (patient has packed pilionidal cyst that is actively bleeding. ) Neurological exam: Present: alert Psychiatric exam: Present: normal affect, normal mood Skin exam: Present: warm, dry, intact, normal color. Absent: rash <Betsy Mendez - Last Filed: 02/08/19 19:55> - General Exam Comments Initial Comments: 33 year old female, moderate discomfort. (Betsy Mendez) Course Vital Signs 02/08/19 02/08/19 02/08/19 14:47 16:16 17:53 Temperature 100.3 F H Pulse Rate 95 108 H 93 Respiratory 16 18 20 Rate Blood Pressure 121/84 109/65 91/53 O2 Sat by Pulse 100 100 97 Oximetry 02/08/19 02/08/19 02/08/19 19:36 21:48 22:44 Temperature Pulse Rate 87 82 86 Respiratory 20 16 20 Rate Blood Pressure 92/46 106/62 105/71 O2 Sat by Pulse 100 100 100 Oximetry Medical Decision Making - Lab Data Result diagrams: 02/08/19 15:09 02/08/19 15:09 - Radiology Data Radiology results: report reviewed <Betsy Mendez - Last Filed: 02/08/19 19:55> - Lab Data Result diagrams: 02/08/19 21:45 02/08/19 15:09 <Dana Candelaria - Last Filed: 02/09/19 06:38> - Medical Decision Making Patient is a 33 year old female with bleeding from pilionidal cyst surgery that occurred one week ago. Patient had packing changed from visiting nurses and bleeding started last night. At this time patient has bleeding from site. She has soaked through multiple dressings and towels. She also has a fever, and history of chest pain and PE. CT was completed and negative for PE. She has no other source of infection at this time. Discussed case with Dr. Lomax whom discussed with Dr. Benz, whom recommended repack and cautery. (Betsy Ibarra) I received the patient in sign out. Patient presented to the ER with bleeding from her operative site where she had a pilonidal cyst excision. The wound was instilled with lidocaine with epinephrine and bleeding was controlled. Upon reevaluation patient's quite anxious, noted to be hypotensive. Repeat hemoglobin was obtained and was decreased another 1.5 g from previous. This and we will plan to place the patient in observation for serial hemoglobin and reevaluation by her surgeon the morning. Patient is agreeable to this. Patient care was discussed with her primary care physician Dr. Wallace who accepts the admission (Dana Candelaria) - Lab Data Lab Results 02/08/19 02/08/19 02/08/19 Range/Units 15:09 15:09 15:09 WBC (3.8-10.6) k/uL RBC (3.80-5.40) m/uL Hgb (11.4-16.0) gm/dL Hct (34.0-46.0) % MCV (80.0-100.0) fL MCH (25.0-35.0) pg MCHC (31.0-37.0) g/dL RDW (11.5-15.5) % Plt Count (150-450) k/uL Neutrophils % % Lymphocytes % % Monocytes % % Eosinophils % % Basophils % % Neutrophils # (1.3-7.7) k/uL Lymphocytes # (1.0-4.8) k/uL Monocytes # (0-1.0) k/uL Eosinophils # (0-0.7) k/uL Basophils # (0-0.2) k/uL D-Dimer 1.88 H (<0.60) mg/L FEU Sodium (137-145) mmol/L Potassium (3.5-5.1) mmol/L Chloride (98-107) mmol/L Carbon Dioxide (22-30) mmol/L Anion Gap mmol/L BUN (7-17) mg/dL Creatinine (0.52-1.04) mg/dL Est GFR (CKD-EPI)AfAm (>60 ml/min/1.73 sqM) Est GFR (CKD-EPI)NonAf (>60 ml/min/1.73 sqM) Glucose (74-99) mg/dL POC Glucose (mg/dL) (75-99) mg/dL POC Glu [employer] ID Plasma Lactic Acid Crow 1.2 (0.7-2.0) mmol/L Calcium (8.4-10.2) mg/dL Total Bilirubin (0.2-1.3) mg/dL AST (14-36) U/L ALT (9-52) U/L Alkaline Phosphatase (38-126) U/L Troponin I (0.000-0.034) ng/mL Total Protein (6.3-8.2) g/dL Albumin (3.5-5.0) g/dL Urine Color Urine Appearance (Clear) Urine pH (5.0-8.0) Ur Specific [place] (1.001-1.035) Urine Protein (Negative) Urine Glucose (UA) (Negative) Urine Ketones (Negative) Urine Blood (Negative) Urine Nitrite (Negative) Urine Bilirubin (Negative) Urine Urobilinogen (<2.0) mg/dL Ur Leukocyte Esterase (Negative) Urine RBC (0-5) /hpf Urine WBC (0-5) /hpf Ur Squamous Epith Cells (0-4) /hpf Urine Mucus (None) /hpf Blood Type B Positive Blood Type Confirm Blood Type Recheck No Previous Record Bld Type Recheck Status CABO Indicated Antibody Screen NEGATIVE Spec Expiration Date 02/11/2019 - 230802/08/19 02/08/19 02/08/19 Range/Units 15:09 15:09 15:09 WBC 10.0 (3.8-10.6) k/uL RBC 3.68 L (3.80-5.40) m/uL Hgb 11.5 (11.4-16.0) gm/dL Hct 33.9 L (34.0-46.0) % MCV 92.2 (80.0-100.0) fL MCH 31.2 (25.0-35.0) pg MCHC 33.8 (31.0-37.0) g/dL RDW 15.5 (11.5-15.5) % Plt Count 319 (150-450) k/uL Neutrophils % 74 % Lymphocytes % 20 % Monocytes % 4 % Eosinophils % 1 % Basophils % 0 % Neutrophils # 7.3 (1.3-7.7) k/uL Lymphocytes # 2.0 (1.0-4.8) k/uL Monocytes # 0.4 (0-1.0) k/uL Eosinophils # 0.1 (0-0.7) k/uL Basophils # 0.0 (0-0.2) k/uL D-Dimer (<0.60) mg/L FEU Sodium 139 (137-145) mmol/L Potassium 3.9 (3.5-5.1) mmol/L Chloride 104 (98-107) mmol/L Carbon Dioxide 26 (22-30) mmol/L Anion Gap 9 mmol/L BUN 17 (7-17) mg/dL Creatinine 0.78 (0.52-1.04) mg/dL Est GFR (CKD-EPI)AfAm >90 (>60 ml/min/1.73 sqM) Est GFR (CKD-EPI)NonAf >90 (>60 ml/min/1.73 sqM) Glucose 92 (74-99) mg/dL POC Glucose (mg/dL) (75-99) mg/dL POC Glu [employer] ID Plasma Lactic Acid Crow (0.7-2.0) mmol/L Calcium 9.4 (8.4-10.2) mg/dL Total Bilirubin 0.4 (0.2-1.3) mg/dL AST 29 (14-36) U/L ALT 39 (9-52) U/L Alkaline Phosphatase 77 (38-126) U/L Troponin I <0.012 (0.000-0.034) ng/mL Total Protein 7.5 (6.3-8.2) g/dL Albumin 4.1 (3.5-5.0) g/dL Urine Color Urine Appearance (Clear) Urine pH (5.0-8.0) Ur Specific [place] (1.001-1.035) Urine Protein (Negative) Urine Glucose (UA) (Negative) Urine Ketones (Negative) Urine Blood (Negative) Urine Nitrite (Negative) Urine Bilirubin (Negative) Urine Urobilinogen (<2.0) mg/dL Ur Leukocyte Esterase (Negative) Urine RBC (0-5) /hpf Urine WBC (0-5) /hpf Ur Squamous Epith Cells (0-4) /hpf Urine Mucus (None) /hpf Blood Type Blood Type Confirm Blood Type Recheck Bld Type Recheck Status Antibody Screen Spec Expiration Date 02/08/19 02/08/19 02/08/19 Range/Units 15:09 15:09 18:18 WBC (3.8-10.6) k/uL RBC (3.80-5.40) m/uL Hgb (11.4-16.0) gm/dL Hct (34.0-46.0) % MCV (80.0-100.0) fL MCH (25.0-35.0) pg MCHC (31.0-37.0) g/dL RDW (11.5-15.5) % Plt Count (150-450) k/uL Neutrophils % % Lymphocytes % % Monocytes % % Eosinophils % % Basophils % % Neutrophils # (1.3-7.7) k/uL Lymphocytes # (1.0-4.8) k/uL Monocytes # (0-1.0) k/uL Eosinophils # (0-0.7) k/uL Basophils # (0-0.2) k/uL D-Dimer (<0.60) mg/L FEU Sodium (137-145) mmol/L Potassium (3.5-5.1) mmol/L Chloride (98-107) mmol/L Carbon Dioxide (22-30) mmol/L Anion Gap mmol/L BUN (7-17) mg/dL Creatinine (0.52-1.04) mg/dL Est GFR (CKD-EPI)AfAm (>60 ml/min/1.73 sqM) Est GFR (CKD-EPI)NonAf (>60 ml/min/1.73 sqM) Glucose (74-99) mg/dL POC Glucose (mg/dL) 130 H (75-99) mg/dL POC Glu [employer] ID Kira Francis Plasma Lactic Acid Crow (0.7-2.0) mmol/L Calcium (8.4-10.2) mg/dL Total Bilirubin (0.2-1.3) mg/dL AST (14-36) U/L ALT (9-52) U/L Alkaline Phosphatase (38-126) U/L Troponin I (0.000-0.034) ng/mL Total Protein (6.3-8.2) g/dL Albumin (3.5-5.0) g/dL Urine Color Light Yellow Urine Appearance Clear (Clear) Urine pH 5.5 (5.0-8.0) Ur Specific [place] 1.013 (1.001-1.035) Urine Protein Negative (Negative) Urine Glucose (UA) Negative (Negative) Urine Ketones Negative (Negative) Urine Blood Moderate H (Negative) Urine Nitrite Negative (Negative) Urine Bilirubin Negative (Negative) Urine Urobilinogen <2.0 (<2.0) mg/dL Ur Leukocyte Esterase Negative (Negative) Urine RBC 14 H (0-5) /hpf Urine WBC 1 (0-5) /hpf Ur Squamous Epith Cells <1 (0-4) /hpf Urine Mucus Rare H (None) /hpf Blood Type Blood Type Confirm B Positive Blood Type Recheck Bld Type Recheck Status Antibody Screen Spec Expiration Date 02/08/19 Range/Units 21:45 WBC 13.3 H (3.8-10.6) k/uL RBC 3.34 L (3.80-5.40) m/uL Hgb 10.1 L (11.4-16.0) gm/dL Hct 30.8 L (34.0-46.0) % MCV 92.0 (80.0-100.0) fL MCH 30.2 (25.0-35.0) pg MCHC 32.9 (31.0-37.0) g/dL RDW 13.4 (11.5-15.5) % Plt Count 326 (150-450) k/uL Neutrophils % 83 % Lymphocytes % 13 % Monocytes % 3 % Eosinophils % 0 % Basophils % 1 % Neutrophils # 11.0 H (1.3-7.7) k/uL Lymphocytes # 1.7 (1.0-4.8) k/uL Monocytes # 0.4 (0-1.0) k/uL Eosinophils # 0.0 (0-0.7) k/uL Basophils # 0.1 (0-0.2) k/uL D-Dimer (<0.60) mg/L FEU Sodium (137-145) mmol/L Potassium (3.5-5.1) mmol/L Chloride (98-107) mmol/L Carbon Dioxide (22-30) mmol/L Anion Gap mmol/L BUN (7-17) mg/dL Creatinine (0.52-1.04) mg/dL Est GFR (CKD-EPI)AfAm (>60 ml/min/1.73 sqM) Est GFR (CKD-EPI)NonAf (>60 ml/min/1.73 sqM) Glucose (74-99) mg/dL POC Glucose (mg/dL) (75-99) mg/dL POC Glu [employer] ID Plasma Lactic Acid Crow (0.7-2.0) mmol/L Calcium (8.4-10.2) mg/dL Total Bilirubin (0.2-1.3) mg/dL AST (14-36) U/L ALT (9-52) U/L Alkaline Phosphatase (38-126) U/L Troponin I (0.000-0.034) ng/mL Total Protein (6.3-8.2) g/dL Albumin (3.5-5.0) g/dL Urine Color Urine Appearance (Clear) Urine pH (5.0-8.0) Ur Specific [place] (1.001-1.035) Urine Protein (Negative) Urine Glucose (UA) (Negative) Urine Ketones (Negative) Urine Blood (Negative) Urine Nitrite (Negative) Urine Bilirubin (Negative) Urine Urobilinogen (<2.0) mg/dL Ur Leukocyte Esterase (Negative) Urine RBC (0-5) /hpf Urine WBC (0-5) /hpf Ur Squamous Epith Cells (0-4) /hpf Urine Mucus (None) /hpf Blood Type Blood Type Confirm Blood Type Recheck Bld Type Recheck Status Antibody Screen Spec Expiration Date 02/08/19 17:16 EKG shows a sinus rhythm with normal EKG noted. Ventricular rate of 87 bpm. PA interval is 154 ms. QRS duration is 74 ms. QT QTc is 370/445 ms. No evidence of ST elevation. (Betsy Mendez) - Radiology Data CT angio chest is negative for PE . (Betsy Mendez) Disposition <Betsy Mendez - Last Filed: 02/08/19 19:55> <Dana Candelaria - Last Filed: 02/09/19 06:38> Clinical Impression: Hypotension, Acute blood loss anemia Disposition: ADMITTED IP TO THIS HOSP Condition: Stable
[2019-02-08] MEDS: SODIUM CHLORIDE 0.9% 1,000 ML IV SCH (15:44)
[2019-02-08 15:48] LABS: Basophils % (A) 0 %; Eosinophils # (A) 0.1 k/uL (0-0.7); Eosinophils % (A) 1 %; HCT 33.9 % (34.0-46.0); HGB 11.5 gm/dL (11.4-16.0); Lymphocytes % (A) 20 %; MCH 31.2 pg (25.0-35.0); MCHC 33.8 g/dL (31.0-37.0); MCV 92.2 fL (80.0-100.0); Monocytes # (A) 0.4 k/uL (0-1.0); Monocytes % (A) 4 %; Neutrophils # (A) 7.3 k/uL (1.3-7.7); Neutrophils % (A) 74 %; Platelet Count 319 k/uL (150-450); RBC 3.68 m/uL (3.80-5.40); RDW 15.5 % (11.5-15.5)
[2019-02-08 16:00] LABS: ALT 39 U/L (9-52); AST 29 U/L (14-36); African American GFR (CKD) >90 (>60 ml/min/1.73 sqM); Albumin 4.1 g/dL (3.5-5.0); Alkaline Phosphatase 77 U/L (38-126); Anion Gap 9 mmol/L; Blood Urea Nitrogen 17 mg/dL (7-17); Calcium 9.4 mg/dL (8.4-10.2); Carbon Dioxide 26 mmol/L (22-30); Chloride 104 mmol/L (98-107); Glucose 92 mg/dL (74-99); Potassium 3.9 mmol/L (3.5-5.1); Sodium 139 mmol/L (137-145); Total Bilirubin 0.4 mg/dL (0.2-1.3); Total Protein 7.5 g/dL (6.3-8.2)
[2019-02-08] MEDS ORDERED: MORPHINE SULFATE 4 MG/ML SYRINGE IVP STA (16:16)
--- NOTE | 2019-02-08 16:42 | CT ---
EXAMINATION TYPE: CT chest angio for PE DATE OF EXAM: 02/08/2019 COMPARISON: NONE HISTORY: chest pain, increased d-dimer post pilonidal cyst surgery CT DLP: 281.2 mGycm. Automated Exposure Control for Dose Reduction was Utilized. CONTRAST: CTA scan of the thorax is performed with IV Contrast, patient injected with 100 mL of Isovue 370, pul monary embolism protocol. MIP Images are created on CT scanner and reviewed. FINDINGS: LUNGS: The lungs are grossly clear, there is no concerning parenchymal mass or nodule identified. T here is no pleural effusion or pneumothorax seen. The tracheobronchial tree is patent. MEDIASTINUM: There is satisfactory enhancement of the pulmonary artery and its branches, there is no CT evidence for pulmonary embolism. There are no greater than 1 cm hilar or mediastinal lymph nodes. No cardiomegaly or pericardial effusion is seen. Satisfactory enhancement of the thoracic aorta wi thout aneurysm or dissection. OTHER: Bilateral subpectoral breast implants are noted. IMPRESSION: No CT evidence for acute pulmonary embolism. No acute pulmonary process.
[2019-02-08] MEDS ORDERED: DIAZEPAM 5 MG/ML 2 ML INJ IVP STA (17:31)
[2019-02-08] MEDS ORDERED: HYDROmorphone 1 MG/ML 1 ML SYRINGE IVP STA (17:31)
[2019-02-08 17:41] LABS: Appearance,Urine Clear (Clear); Bilirubin,Urine Negative (Negative); Blood,Urine Moderate (Negative); Color,Urine Light Yellow; Glucose,Urine (UA) Negative (Negative); Ketones,Urine Negative (Negative); Leukocyte Esterase,Urine Negative (Negative); Mucus,Urine Rare /hpf; Nitrite,Urine Negative (Negative); PH, Urine 5.5 (5.0-8.0); Protein,Urine Negative (Negative); RBC,Urine 14 /hpf (0-5); Specific Gravity,Urine 1.013 (1.001-1.035); Squamous Epithelial Cell,Urine <1 /hpf (0-4); Urobilinogen,Urine <2.0 mg/dL (<2.0)
[2019-02-08] MEDS ORDERED: ONDANSETRON 4 MG/2 ML VIAL IVP STA (17:46)
[2019-02-08] MEDS ORDERED: MIDAZOLAM (PF) 2 MG/2 ML VIAL IV STA (17:46)
[2019-02-08] MEDS ORDERED: LIDOCAINE 1%-EPI 1:100,000 20 ML VIAL SQ STA (18:12)
[2019-02-08 18:20] LABS: Glucose,Whole Blood 130 mg/dL (75-99)
[2019-02-08 21:57] LABS: Basophils # (A) 0.1 k/uL (0-0.2); Basophils % (A) 1 %; Eosinophils % (A) 0 %; HCT 30.8 % (34.0-46.0); HGB 10.1 gm/dL (11.4-16.0); Lymphocytes # (A) 1.7 k/uL (1.0-4.8); Lymphocytes % (A) 13 %; MCH 30.2 pg (25.0-35.0); MCHC 32.9 g/dL (31.0-37.0); Mean Platelet Volume 6.4; Monocytes # (A) 0.4 k/uL (0-1.0); Monocytes % (A) 3 %; Neutrophils % (A) 83 %; Platelet Count 326 k/uL (150-450); RBC 3.34 m/uL (3.80-5.40); RDW 13.4 % (11.5-15.5); WBC 13.3 k/uL (3.8-10.6)
[2019-02-08] MEDS ORDERED: NALOXONE 0.4 MG/ML 1 ML VIAL IV PRN (22:17)
[2019-02-08] MEDS ORDERED: IBUPROFEN 400 MG TAB PO PRN (22:17)
[2019-02-09] MEDS: SODIUM CHLORIDE 0.9% 1,000 ML IV SCH ×3 (04:45→22:56)
[2019-02-09] MEDS: ACETAMINOPHEN TAB 325 MG TAB PO PRN ×3 (04:47→18:19)
[2019-02-09] MEDS ORDERED: SODIUM CHLORIDE 0.9% 500 ML 500 ML IV ONE (07:10)
[2019-02-09 07:34] LABS: ALT 26 U/L (9-52); AST 22 U/L (14-36); African American GFR (CKD) >90 (>60 ml/min/1.73 sqM); Albumin 2.9 g/dL (3.5-5.0); Alkaline Phosphatase 52 U/L (38-126); Anion Gap 4 mmol/L; Blood Urea Nitrogen 12 mg/dL (7-17); Calcium 7.8 mg/dL (8.4-10.2); Carbon Dioxide 24 mmol/L (22-30); Chloride 110 mmol/L (98-107); Glucose 80 mg/dL (74-99); Potassium 3.8 mmol/L (3.5-5.1); Sodium 138 mmol/L (137-145); Total Bilirubin 0.3 mg/dL (0.2-1.3); Total Protein 5.6 g/dL (6.3-8.2)
[2019-02-09] MEDS: PIPERACILLIN-TAZOBACTAM 3.375 GM in SODIUM CHLORIDE 0.9% 100 ML IVPB SCH ×2 (07:41→17:43)
[2019-02-09 07:43] LABS: Basophils % (A) 0 %; Eosinophils # (A) 0.1 k/uL (0-0.7); Eosinophils % (A) 2 %; Lymphocytes # (A) 2.1 k/uL (1.0-4.8); Lymphocytes % (A) 32 %; MCH 31.2 pg (25.0-35.0); MCHC 33.9 g/dL (31.0-37.0); MCV 92.1 fL (80.0-100.0); Mean Platelet Volume 7.2; Monocytes # (A) 0.3 k/uL (0-1.0); Monocytes % (A) 5 %; Neutrophils % (A) 60 %; Platelet Count 238 k/uL (150-450); RBC 2.61 m/uL (3.80-5.40); WBC 6.7 k/uL (3.8-10.6)
[2019-02-09 07:46] LABS: HGB 8.1 gm/dL (11.4-16.0)
[2019-02-09] MEDS: LEVOTHYROXINE 88 MCG TAB PO SCH (08:50)
[2019-02-09] MEDS: MULTIVITAMINS, THERA 1 EACH TAB PO SCH (08:50)
[2019-02-09] MEDS: DOCUSATE 100 MG CAP PO SCH (08:50)
[2019-02-09] MEDS: FAMOTIDINE 20 MG TAB PO SCH ×2 (09:34→21:36)
[2019-02-09] MEDS: LACTATED RINGERS 1,000 ML IV SCH ×6 (09:54→21:38)
--- NOTE | 2019-02-09 10:36 | P.HPIM ---
History of Present Illness H&P Date: 02/09/19 This is a 33-year-old female patient who presented with complaints of acute blood loss due to pilondial cyst removal 1 week prior. Patient reports that she was seen by surgeon 2 days ago and dressing was changed and since then she's had increased bleeding. She said that she had visiting nursing come out and change dressing and bleeding continued to increase. Patient has a past medical history of pulmonary embolism during in 2013. Patient reports that she was on Lovenox during her and treatment for 3 months after giving . Additional medical history includes hypothyroidism and uterine polyps. Patient reports she did have a period 2 weeks ago that did have heavy bleeding but she is no longer having any vaginal bleeding at this time. D-dimer elevated at 1.88. CT of the chest completed showing no CT evidence for pulmonary embolism no acute pulmonary process. EKG completed showing normal sinus rhythm. Initial hemoglobin 11.5. Hemoglobin decreasing to 8.1. Digital services are following. Patient's blood pressure low in the 80s. Patient receiving bolus per surgical services. Patient did have elevated temp on admit 100.3. Lactic acid 1.5. UA negative for infection. Patient is maintained on Zosyn. At this time patient denies any chest pain or shortness of breath. Patient is complaining about bilateral lower leg achiness will order venous Doppler to rule out DVT. Patient denies any nausea vomiting or diarrhea. Patient denies any urinary burning or frequency. Review of Systems Please refer to HPI otherwise unremarkable Past Medical History Past Medical History: Pulmonary Embolus (PE), Thyroid Disorder Additional Past Medical History / Comment(s): pilonidal cyst, possible current sinus infection, uterine polyps History of Any Multi-Drug Resistant Organisms: None Reported Past Surgical History: Appendectomy, Breast Surgery, Hernia Repair, Orthopedic Surgery Additional Past Surgical History / Comment(s): cyst drained, falopian tubes removed Past Anesthesia/Blood Transfusion Reactions: Postoperative Nausea & Vomiting (PONV) Past Psychological History: No Psychological Hx Reported Smoking Status: Former smoker Past Alcohol Use History: None Reported Additional Past Alcohol Use History / Comment(s): quit smoking 2011, smoked occasionally Past Drug Use History: None Reported - Past Family History Mother Family Medical History: No Reported History Medications and Allergies Home Medications Medication Instructions Recorded Confirmed Type Levothyroxine Sodium [Synthroid] 88 mcg PO DAILY 01/19/19 02/08/19 History Aspirin [Adult Low Dose Aspirin EC] 81 mg PO DAILY 01/30/19 02/08/19 History Acetaminophen [Tylenol Extra 1,000 mg PO Q6H PRN 02/08/19 02/08/19 History Strength] Ascorbic Acid [Vitamin C] 500 mg PO DAILY 02/08/19 02/08/19 History Docusate [Colace] 100 mg PO DAILY 02/08/19 02/08/19 History Multivitamins, Thera [Multivitamin 1 tab PO DAILY 02/08/19 02/08/19 History (formulary)] Allergies Allergy/AdvReac Type Severity Reaction Status Date / Time betamethasone Allergy Unknown Verified 02/08/19 18:40 [From Celestone] latex Allergy Rash/Hives Verified 02/08/19 18:40 lorazepam [From Ativan] Allergy Unknown Verified 02/08/19 18:40 Pertussis Vaccines Allergy Rash/Hives Verified 02/08/19 18:40 Physical Exam Vitals: Vital Signs Temp Pulse Pulse Resp BP BP Pulse Ox 02/09/19 09:52 84/49 02/09/19 07:00 99.1 F 84 16 86/55 100 02/08/19 23:44 98.5 F 18 91/58 99 02/08/19 22:44 86 20 105/71 100 02/08/19 21:48 82 16 106/62 100 02/08/19 19:36 87 20 92/46 100 02/08/19 17:53 93 20 91/53 97 02/08/19 16:16 108 H 18 109/65 100 02/08/19 14:47 100.3 F H 95 16 121/84 100 Intake and Output 02/08/19 02/09/19 02/09/19 22:59 06:59 14:59 Other: Voiding Method Toilet # Voids 2 1 Head normocephalic Neck supple Lungs clear to auscultation bilaterally no wheezing or crackles Heart regular rate and rhythm S1-S2, no rub or gallop Abdomen is soft nontender nondistended positive bowel sounds no hepatosplenomegaly Extremities no edema. Back dressing is clean dry and intact some shadowing noted to dressing Neuro alert and orientated to 3 Results CBC & Chem 7: 02/09/19 06:39 02/09/19 06:39 Labs: Abnormal Lab Results - Last 24 Hours (Table) 02/08/19 02/08/19 02/08/19 Range/Units 15:09 15:09 15:09 WBC (3.8-10.6) k/uL RBC 3.68 L (3.80-5.40) m/uL Hgb (11.4-16.0) gm/dL Hct 33.9 L (34.0-46.0) % Neutrophils # (1.3-7.7) k/uL D-Dimer 1.88 H (<0.60) mg/L FEU Chloride (98-107) mmol/L POC Glucose (mg/dL) (75-99) mg/dL Calcium (8.4-10.2) mg/dL Total Protein (6.3-8.2) g/dL Albumin (3.5-5.0) g/dL Urine Blood Moderate H (Negative) Urine RBC 14 H (0-5) /hpf Urine Mucus Rare H (None) /hpf 02/08/19 02/08/19 02/09/19 Range/Units 18:18 21:45 06:39 WBC 13.3 H (3.8-10.6) k/uL RBC 3.34 L 2.61 L (3.80-5.40) m/uL Hgb 10.1 L 8.1 L D (11.4-16.0) gm/dL Hct 30.8 L 24.0 L (34.0-46.0) % Neutrophils # 11.0 H (1.3-7.7) k/uL D-Dimer (<0.60) mg/L FEU Chloride (98-107) mmol/L POC Glucose (mg/dL) 130 H (75-99) mg/dL Calcium (8.4-10.2) mg/dL Total Protein (6.3-8.2) g/dL Albumin (3.5-5.0) g/dL Urine Blood (Negative) Urine RBC (0-5) /hpf Urine Mucus (None) /hpf 02/09/19 Range/Units 06:39 WBC (3.8-10.6) k/uL RBC (3.80-5.40) m/uL Hgb (11.4-16.0) gm/dL Hct (34.0-46.0) % Neutrophils # (1.3-7.7) k/uL D-Dimer (<0.60) mg/L FEU Chloride 110 H (98-107) mmol/L POC Glucose (mg/dL) (75-99) mg/dL Calcium 7.8 L (8.4-10.2) mg/dL Total Protein 5.6 L (6.3-8.2) g/dL Albumin 2.9 L (3.5-5.0) g/dL Urine Blood (Negative) Urine RBC (0-5) /hpf Urine Mucus (None) /hpf Thrombosis Risk Factor Assmnt - Choose All That Apply Each Risk Factor Represents 3 Points: History of DVT/PE Thrombosis Risk Factor Assessment Total Risk Factor Score: 3 Thrombosis Risk Factor Assessment Level: Moderate Risk Assessment and Plan Assessment: 1. Acute blood loss secondary to pilondial cyst removal. Surgical services have been consulted. Hemoglobin dropping to 8.1. We'll continue to monitor and transfuse as needed 2. Febrile. Patient had elevated temp 100.3 on admit. Patient started on Zosyn. UA negative for UTI. Lactic acid 1.5. CTA of the chest showing no acute pulmonary process. Blood culture ordered. 3. Elevated d-dimer. CTA completed showing no CT evidence for acute pulmonary embolism no acute pulmonary process. Will order venous Doppler to rule out DVT 4. History of pulmonary embolism during in 2013. Patient reports that she did receive adequate treatment not currently on any anticoagulation 5. History of hypothyroidism. Synthroid resumed 6. Hypotension. Likely secondary to acute blood loss. Patient receiving bolus per surgical services. Will continue to monitor and transfuse as needed 7. History of uterine polyps DVT prophylaxis SCDs. GI prophylaxis Pepcid Time with Patient: Greater than 30 (Greater than 60% of the total time spent in counseling and coordination of care. I performed an examination of the patient and discussed their management with the Nurse Practitioner. I have reviewed the Nurse Practitioner's notes and agree with the documented findings and plan of care)
[2019-02-09 11:24] LABS: HCT 25.3 % (34.0-46.0); HGB 8.4 gm/dL (11.4-16.0); MCH 30.9 pg (25.0-35.0); MCHC 33.1 g/dL (31.0-37.0); MCV 93.6 fL (80.0-100.0); Mean Platelet Volume 6.7; Platelet Count 215 k/uL (150-450); RDW 13.5 % (11.5-15.5); WBC 5.9 k/uL (3.8-10.6)
--- NOTE | 2019-02-09 11:57 | US ---
EXAMINATION TYPE: US venous doppler duplex LE DATE OF EXAM: 02/09/2019 11:14 AM COMPARISON: NONE CLINICAL HISTORY: bilateral leg pain. elevated ddimer. Bilateral leg pain, chest pain, elevated d dim er, history of PE SIDE PERFORMED: Bilateral TECHNIQUE: The lower extremity deep venous system is examined utilizing real time linear array sonog ty with graded compression, doppler sonography and color-flow sonography. VESSELS IMAGED: External Iliac Vein (EIV) Common Femoral Vein Deep Femoral Vein Greater Saphenous Vein * Femoral Vein Popliteal Vein Small Saphenous Vein * Proximal Calf Veins (* superficial vessels) Grayscale, color doppler, spectral doppler imaging performed of the deep veins of the lower extremiti es. There is normal flow, compressibility, vascular waveforms. Right Leg: Appears negative for DVT Left Leg: Appears negative for DVT IMPRESSION: No sonographic evidence of deep venous thrombosis within either lower extremity.
[2019-02-09] MEDS: SODIUM FERRIC GLUCONAT-SUCROSE 125 MG in SODIUM CHLORIDE 0.9% 100 ML IVPB SCH (12:37)
--- NOTE | 2019-02-09 15:09 | P.GSCN ---
History of Present Illness Consult date: 02/09/19 Reason for Consult: post op Requesting physician: Dana Candelaria History of present illness: CHIEF COMPLAINT: post op HISTORY OF PRESENT ILLNESS: 33 year old female who underwent excision of pilonidal cyst on 01/31/2019. Patient has been doing well postoperatively and wa s tolerating dressing changes without difficulty. She saw Dr. Benz on Wednesday in the office and wound was examined. She reports on Wednesday afternoon she had a home care nurse that removed the packing from her incision and repacked the dressing. She reports intense pain when the home care nurse removed the packing and she began to have bleeding from the site. She had another another home care nurse come to her house the following morning and pressure was held on the surgical site for over an hour. She called EMS to be transported to the hospital for further evaluation. Currently, the patients surgical wound is packed and the bleeding has stopped. She was hypotensive this morning with a SBP in the 80s. PAST MEDICAL HISTORY: See list. PAST SURGICAL HISTORY: See list. SOCIAL HISTORY: No illicit drug use. REVIEW OF SYSTEMS: CONSTITUTIONAL: Denies fever or chills. HEENT: Denies blurred vision, vision changes, or eye pain. Denies hemoptysis CARDIOVASCULAR: Denies chest pain or pressure. RESPIRATORY: No shortness of breath. GASTROINTESTINAL: Denies abdominal pain. Denies nausea or vomiting. HEMATOLOGIC: Denies bleeding disorders. GENITOURINARY: Denies any blood in urine. SKIN: Denies pruitis. Denies rash. Reports bleeding to recent surgical site. PHYSICAL EXAM: VITAL SIGNS: Reviewed. GENERAL: Well-developed in no acute distress. HEENT: No sclera icterus. Extraocular movements grossly intact. Moist buccal mucosa. Head is atraumatic, normocephalic. ABDOMEN: Soft. Nondistended. Nontender. NEUROLOGIC: Alert and oriented. Cranial nerves II through XII grossly intact. SKIN: Dressing to surgical site noted with shadowing. LABORATORY DATA: Hemoglobin 11.5 on admission. 8.4 this morning WBC 5.9. Lactic acid 1.5. ASSESSMENT: 1. Acute blood loss anemia from surgical site, suspect secondary to traumatic dressing change 2. Recent excision of pilonidal cyst PLAN: 1. Continue IV fluids. 1L bolus x 1 2. Regular diet 3. Monitor hemoglobin 4. IV iron daily 5. No dressing changes to be completed today. Nursing may change dressing tomorrow. Packing to be moistened with saline before removing Nurse practitioner note has been reviewed by physician. Signing provider agrees with the documented findings, assessment, and plan of care. Past Medical History Past Medical History: Pulmonary Embolus (PE), Thyroid Disorder Additional Past Medical History / Comment(s): pilonidal cyst, possible current sinus infection, uterine polyps History of Any Multi-Drug Resistant Organisms: None Reported Past Surgical History: Appendectomy, Breast Surgery, Hernia Repair, Orthopedic Surgery Additional Past Surgical History / Comment(s): cyst drained, falopian tubes removed Past Anesthesia/Blood Transfusion Reactions: Postoperative Nausea & Vomiting (PONV) Past Psychological History: No Psychological Hx Reported Smoking Status: Former smoker Past Alcohol Use History: None Reported Additional Past Alcohol Use History / Comment(s): quit smoking 2011, smoked occasionally Past Drug Use History: None Reported - Past Family History Mother Family Medical History: No Reported History Medications and Allergies Home Medications Medication Instructions Recorded Confirmed Type Levothyroxine Sodium [Synthroid] 88 mcg PO DAILY 01/19/19 02/08/19 History Aspirin [Adult Low Dose Aspirin EC] 81 mg PO DAILY 01/30/19 02/08/19 History Acetaminophen [Tylenol Extra 1,000 mg PO Q6H PRN 02/08/19 02/08/19 History Strength] Ascorbic Acid [Vitamin C] 500 mg PO DAILY 02/08/19 02/08/19 History Docusate [Colace] 100 mg PO DAILY 02/08/19 02/08/19 History Multivitamins, Thera [Multivitamin 1 tab PO DAILY 02/08/19 02/08/19 History (formulary)] Allergies Allergy/AdvReac Type Severity Reaction Status Date / Time betamethasone Allergy Unknown Verified 02/08/19 18:40 [From Celestone] latex Allergy Rash/Hives Verified 02/08/19 18:40 lorazepam [From Ativan] Allergy Unknown Verified 02/08/19 18:40 Pertussis Vaccines Allergy Rash/Hives Verified 02/08/19 18:40 Surgical - Exam Vital Signs Temp Pulse Resp BP Pulse Ox 100.3 F H 95 16 121/84 100 02/08/19 14:47 02/08/19 14:47 02/08/19 14:47 02/08/19 14:47 02/08/19 14:47 Results - Labs 02/09/19 10:24 02/09/19 06:39 Abnormal Lab Results - Last 24 Hours (Table) 02/08/19 02/08/19 02/08/19 Range/Units 15:09 15:09 15:09 WBC (3.8-10.6) k/uL RBC 3.68 L (3.80-5.40) m/uL Hgb (11.4-16.0) gm/dL Hct 33.9 L (34.0-46.0) % Neutrophils # (1.3-7.7) k/uL D-Dimer 1.88 H (<0.60) mg/L FEU Chloride (98-107) mmol/L POC Glucose (mg/dL) (75-99) mg/dL Calcium (8.4-10.2) mg/dL Total Protein (6.3-8.2) g/dL Albumin (3.5-5.0) g/dL Urine Blood Moderate H (Negative) Urine RBC 14 H (0-5) /hpf Urine Mucus Rare H (None) /hpf 02/08/19 02/08/19 02/09/19 Range/Units 18:18 21:45 06:39 WBC 13.3 H (3.8-10.6) k/uL RBC 3.34 L 2.61 L (3.80-5.40) m/uL Hgb 10.1 L 8.1 L D (11.4-16.0) gm/dL Hct 30.8 L 24.0 L (34.0-46.0) % Neutrophils # 11.0 H (1.3-7.7) k/uL D-Dimer (<0.60) mg/L FEU Chloride (98-107) mmol/L POC Glucose (mg/dL) 130 H (75-99) mg/dL Calcium (8.4-10.2) mg/dL Total Protein (6.3-8.2) g/dL Albumin (3.5-5.0) g/dL Urine Blood (Negative) Urine RBC (0-5) /hpf Urine Mucus (None) /hpf 02/09/19 02/09/19 Range/Units 06:39 10:24 WBC (3.8-10.6) k/uL RBC 2.70 L (3.80-5.40) m/uL Hgb 8.4 L (11.4-16.0) gm/dL Hct 25.3 L (34.0-46.0) % Neutrophils # (1.3-7.7) k/uL D-Dimer (<0.60) mg/L FEU Chloride 110 H (98-107) mmol/L POC Glucose (mg/dL) (75-99) mg/dL Calcium 7.8 L (8.4-10.2) mg/dL Total Protein 5.6 L (6.3-8.2) g/dL Albumin 2.9 L (3.5-5.0) g/dL Urine Blood (Negative) Urine RBC (0-5) /hpf Urine Mucus (None) /hpf Diabetes panel 02/08/19 02/09/19 Range/Units 15: 06:39 Sodium 139 138 (137-145) mmol/L Potassium 3.9 3.8 (3.5-5.1) mmol/L Chloride 104 110 H (98-107) mmol/L Carbon Dioxide 26 24 (22-30) mmol/L BUN 17 12 (7-17) mg/dL Creatinine 0.78 0.71 (0.52-1.04) mg/dL Glucose 92 80 (74-99) mg/dL Calcium 9.4 7.8 L (8.4-10.2) mg/dL AST 29 22 (14-36) U/L ALT 39 26 (9-52) U/L Alkaline Phosphatase 77 52 (38-126) U/L Total Protein 7.5 5.6 L (6.3-8.2) g/dL Albumin 4.1 2.9 L (3.5-5.0) g/dL Calcium panel 02/08/19 02/09/19 Range/Units 15: 06:39 Calcium 9.4 7.8 L (8.4-10.2) mg/dL Albumin 4.1 2.9 L (3.5-5.0) g/dL Pituitary panel 02/08/19 02/09/19 Range/Units 15:09 06:39 Sodium 139 138 (137-145) mmol/L Potassium 3.9 3.8 (3.5-5.1) mmol/L Chloride 104 110 H (98-107) mmol/L Carbon Dioxide 26 24 (22-30) mmol/L BUN 17 12 (7-17) mg/dL Creatinine 0.78 0.71 (0.52-1.04) mg/dL Glucose 92 80 (74-99) mg/dL Calcium 9.4 7.8 L (8.4-10.2) mg/dL Adrenal panel 02/08/19 02/09/19 Range/Units 15:09 06:39 Sodium 139 138 (137-145) mmol/L Potassium 3.9 3.8 (3.5-5.1) mmol/L Chloride 104 110 H (98-107) mmol/L Carbon Dioxide 26 24 (22-30) mmol/L BUN 17 12 (7-17) mg/dL Creatinine 0.78 0.71 (0.52-1.04) mg/dL Glucose 92 80 (74-99) mg/dL Calcium 9.4 7.8 L (8.4-10.2) mg/dL Total Bilirubin 0.4 0.3 (0.2-1.3) mg/dL AST 29 22 (14-36) U/L ALT 39 26 (9-52) U/L Alkaline Phosphatase 77 52 (38-126) U/L Total Protein 7.5 5.6 L (6.3-8.2) g/dL Albumin 4.1 2.9 L (3.5-5.0) g/dL
[2019-02-09] MEDS ORDERED: HYDROmorphone 0.5 MG/0.5 ML SYRINGE IVP PRN (21:53)
[2019-02-10] MEDS: PIPERACILLIN-TAZOBACTAM 3.375 GM in SODIUM CHLORIDE 0.9% 100 ML IVPB SCH ×3 (00:10→18:12)
[2019-02-10] MEDS: ONDANSETRON 4 MG/2 ML VIAL IVP PRN ×2 (02:00→14:51)
[2019-02-10] MEDS: ACETAMINOPHEN TAB 325 MG TAB PO PRN ×3 (04:30→22:01)
[2019-02-10] MEDS: LEVOTHYROXINE 88 MCG TAB PO SCH (05:04)
[2019-02-10 06:49] LABS: Basophils % (A) 0 %; Eosinophils # (A) 0.1 k/uL (0-0.7); Eosinophils % (A) 2 %; HCT 22.8 % (34.0-46.0); HGB 7.7 gm/dL (11.4-16.0); Lymphocytes # (A) 1.8 k/uL (1.0-4.8); Lymphocytes % (A) 29 %; MCH 31.5 pg (25.0-35.0); MCHC 33.5 g/dL (31.0-37.0); Mean Platelet Volume 7.2; Monocytes # (A) 0.3 k/uL (0-1.0); Monocytes % (A) 5 %; Neutrophils % (A) 62 %; Platelet Count 207 k/uL (150-450); RBC 2.43 m/uL (3.80-5.40); RDW 13.7 % (11.5-15.5); WBC 6.4 k/uL (3.8-10.6)
[2019-02-10 07:04] LABS: ALT 25 U/L (9-52); AST 21 U/L (14-36); African American GFR (CKD) >90 (>60 ml/min/1.73 sqM); Albumin 2.8 g/dL (3.5-5.0); Alkaline Phosphatase 46 U/L (38-126); Anion Gap 3 mmol/L; Blood Urea Nitrogen 8 mg/dL (7-17); Calcium 7.8 mg/dL (8.4-10.2); Carbon Dioxide 26 mmol/L (22-30); Chloride 110 mmol/L (98-107); Glucose 76 mg/dL (74-99); Potassium 3.7 mmol/L (3.5-5.1); Sodium 139 mmol/L (137-145); Total Bilirubin 0.3 mg/dL (0.2-1.3); Total Protein 5.5 g/dL (6.3-8.2)
[2019-02-10 08:13] LABS: Glucose,Whole Blood 90 mg/dL (75-99)
[2019-02-10] MEDS ORDERED: SODIUM CHLORIDE 0.9% 1,000 ML IV ONE (08:22)
[2019-02-10] MEDS: SODIUM CHLORIDE 0.9% 1,000 ML IV SCH ×3 (09:06→22:16)
[2019-02-10] MEDS: MULTIVITAMINS, THERA 1 EACH TAB PO SCH (09:07)
[2019-02-10] MEDS: DOCUSATE 100 MG CAP PO SCH (09:07)
[2019-02-10] MEDS: FAMOTIDINE 20 MG TAB PO SCH ×2 (09:07→22:01)
[2019-02-10] MEDS: SODIUM FERRIC GLUCONAT-SUCROSE 125 MG in SODIUM CHLORIDE 0.9% 100 ML IVPB SCH (10:04)
[2019-02-10] MEDS ORDERED: SODIUM FERRIC GLUCONAT-SUCROSE 125 MG in SODIUM CHLORIDE 0.9% 100 ML IVPB ONE (10:41)
[2019-02-10] MEDS ORDERED: HYDROcodone/APAP 7.5-325MG 1 EACH TAB PO PRN (10:57)
--- NOTE | 2019-02-10 11:07 | P.PN ---
Subjective Progress Note Date: 02/10/19 This is a 33-year-old female patient who presented with complaints of acute blood loss due to pilondial cyst removal 1 week prior. Patient reports that she was seen by surgeon 2 days ago and dressing was changed and since then she's had increased bleeding. She said that she had visiting nursing come out and change dressing and bleeding continued to increase. Patient has a past medical history of pulmonary embolism during in 2012. Patient reports that she was on Lovenox during her and treatment for 3 months after giving . Additional medical history includes hypothyroidism and uterine polyps. Patient reports she did have a period 2 weeks ago that did have heavy bleeding but she is no longer having any vaginal bleeding at this time. D-dimer elevated at 1.88. CT of the chest completed showing no CT evidence for pulmonary embolism no acute pulmonary process. EKG completed showing normal sinus rhythm. Initial hemoglobin 11.5. Hemoglobin decreasing to 8.1. Digital services are following. Patient's blood pressure low in the 80s. Patient receiving bolus per surgical services. Patient did have elevated temp on admit 100.3. Lactic acid 1.5. UA negative for infection. Patient is maintained on Zosyn. At this time patient denies any chest pain or shortness of breath. Patient is complaining about bilateral lower leg achiness will order venous Doppler to rule out DVT. Patient denies any nausea vomiting or diarrhea. Patient denies any urinary burning or frequency. On 02/10/2019 patient is alert and oriented 3. Patient reports some improvement with pain. Hemoglobin 7.7. Discussed case with surgical [facility]. Patient to receive IV iron today. Blood pressure remains marginal. Continue IV fluid. Patient denies chest pain or shortness of breath. Patient denies nausea vomiting or diarrhea. Patient denies any urinary burning or frequency Objective - Vital Signs Vital signs: Vital Signs Temp 98.9 F 02/10/19 07:00 Pulse 97 02/10/19 07:00 Resp 12 02/10/19 07:00 BP 87/50 02/10/19 07:00 Pulse Ox 97 02/10/19 07:00 Intake & Output 02/09/19 02/10/19 02/10/19 18:59 06:59 18:59 Other: Voiding Method Toilet Toilet # Voids 2 1 - Exam Head normocephalic Neck supple Lungs clear to auscultation bilaterally no wheezing or crackles Heart regular rate and rhythm S1-S2, no rub or gallop Abdomen is soft nontender nondistended positive bowel sounds no hepatosplenomegaly Extremities no edema. Back dressing is clean dry and intact some shadowing noted to dressing Neuro alert and orientated to 3 - Labs CBC & Chem 7: 02/10/19 06:21 02/10/19 06:21 Labs: Abnormal Lab Results - Last 24 Hours (Table) 02/09/19 02/10/19 02/10/19 Range/Units 10:24 06:21 06:21 RBC 2.70 L 2.43 L (3.80-5.40) m/uL Hgb 8.4 L 7.7 L (11.4-16.0) gm/dL Hct 25.3 L 22.8 L (34.0-46.0) % Chloride 110 H (98-107) mmol/L Calcium 7.8 L (8.4-10.2) mg/dL Total Protein 5.5 L (6.3-8.2) g/dL Albumin 2.8 L (3.5-5.0) g/dL Microbiology - Last 24 Hours (Table) 02/09/19 08:29 Blood Culture - Preliminary Blood No Growth after 24 hours 02/09/19 08:30 Gram Stain - Preliminary Other - Other Wound Culture - Preliminary 02/09/19 08:30 Anaerobic Culture - Preliminary Coccyx 02/08/19 17:00 Blood Culture - Preliminary Blood No Growth after 24 hours Assessment and Plan Assessment: 1. Acute blood loss secondary to pilondial cyst removal. Surgical services have been consulted. Hemoglobin dropping to 8.1. We'll continue to monitor and transfuse as needed. Hemoglobin 7.7. IV iron ordered 2. Febrile. Patient had elevated temp 100.3 on admit. Patient started on Zosyn. UA negative for UTI. Lactic acid 1.5. CTA of the chest showing no acute pulmonary process. Blood culture ordered. Wound cultures pending 3. Elevated d-dimer. CTA completed showing no CT evidence for acute pulmonary embolism no acute pulmonary process. Venous Doppler completed showing no evidence for DVT in bilateral legs 4. History of pulmonary embolism during in 2013. Patient reports that she did receive adequate treatment not currently on any anticoagulation 5. History of hypothyroidism. Synthroid resumed 6. Hypotension. Likely secondary to acute blood loss. Patient receiving bolus per surgical services. Will continue to monitor and transfuse as needed 7. History of uterine polyps DVT prophylaxis SCDs. GI prophylaxis Pepcid I performed an examination of the patient and discussed their management with the Nurse Practitioner. I have reviewed the Nurse Practitioner's notes and agree with the documented findings and plan of care
--- NOTE | 2019-02-10 12:38 | P.PN ---
Subjective Progress Note Date: 02/10/19 CHIEF COMPLAINT: post op HISTORY OF PRESENT ILLNESS: Patient examined this morning at the bedside. No further bleeding from packing at surgical site. Pain is tolerable. She reports some dizziness this morning. BP 87/50. Patient reports her SBP usually runs high 90s/low 100s. Afebrile. Hemoglobin 7.7, down from 8.4. Patient has received 2.5L in boluses since admission. She is receiving IV iron. Tolerating diet. Denies nausea or vomiting. PHYSICAL EXAM: VITAL SIGNS: Reviewed. GENERAL: Well-developed in no acute distress. HEENT: No sclera icterus. Extraocular movements grossly intact. Moist buccal mucosa. Head is atraumatic, normocephalic. ABDOMEN: Soft. Nondistended. Nontender. NEUROLOGIC: Alert and oriented. Cranial nerves II through XII grossly intact. SKIN: Dressing to surgical site noted with shadowing. ASSESSMENT: 1. Acute blood loss anemia from surgical site, suspect secondary to traumatic dressing change 2. Recent excision of pilonidal cyst PLAN: 1. Continue IV fluids. 1L bolus x 1 2. Regular diet 3. Monitor hemoglobin. Transfuse for hemoglobin less than 7.0 4. IV iron daily x 3 doses 5. Daily wound changes to be performed by nursing with gauze packing. Moisten with saline before removing packing. Nurse practitioner note has been reviewed by physician. Signing provider agrees with the documented findings, assessment, and plan of care. Objective - Vital Signs Vital signs: Vital Signs Temp 98.9 F 02/10/19 07:00 Pulse 97 02/10/19 08:05 Resp 15 02/10/19 08:05 BP 87/50 02/10/19 07:00 Pulse Ox 97 02/10/19 07:00 Intake & Output 02/09/19 02/10/19 02/10/19 18:59 06:59 18:59 Other: Voiding Method Toilet Toilet Toilet # Voids 2 1 - Labs CBC & Chem 7: 02/10/19 06:21 02/10/19 06:21 Labs: Abnormal Lab Results - Last 24 Hours (Table) 02/10/19 02/10/19 Range/Units 06:21 06:21 RBC 2.43 L (3.80-5.40) m/uL Hgb 7.7 L (11.4-16.0) gm/dL Hct 22.8 L (34.0-46.0) % Chloride 110 H (98-107) mmol/L Calcium 7.8 L (8.4-10.2) mg/dL Total Protein 5.5 L (6.3-8.2) g/dL Albumin 2.8 L (3.5-5.0) g/dL Microbiology - Last 24 Hours (Table) 02/09/19 08:29 Blood Culture - Preliminary Blood No Growth after 24 hours 02/09/19 08:30 Gram Stain - Preliminary Other - Other Wound Culture - Preliminary 02/09/19 08:30 Anaerobic Culture - Preliminary Coccyx 02/08/19 17:00 Blood Culture - Preliminary Blood No Growth after 24 hours
[2019-02-10] MEDS ORDERED: diphenhydrAMINE 50 MG CAP PO STA (14:41)
[2019-02-11] MEDS: PIPERACILLIN-TAZOBACTAM 3.375 GM in SODIUM CHLORIDE 0.9% 100 ML IVPB SCH ×4 (01:45→20:42)
[2019-02-11 06:52] LABS: Basophils % (A) 0 %; Eosinophils # (A) 0.2 k/uL (0-0.7); Eosinophils % (A) 3 %; HCT 22.5 % (34.0-46.0); HGB 7.7 gm/dL (11.4-16.0); Lymphocytes # (A) 2.5 k/uL (1.0-4.8); Lymphocytes % (A) 43 %; MCH 31.4 pg (25.0-35.0); MCV 92.2 fL (80.0-100.0); Mean Platelet Volume 6.3; Monocytes # (A) 0.3 k/uL (0-1.0); Monocytes % (A) 6 %; Neutrophils # (A) 2.7 k/uL (1.3-7.7); Neutrophils % (A) 45 %; Platelet Count 213 k/uL (150-450); RBC 2.44 m/uL (3.80-5.40); RDW 13.9 % (11.5-15.5); WBC 5.9 k/uL (3.8-10.6)
[2019-02-11 07:06] LABS: ALT 26 U/L (9-52); AST 21 U/L (14-36); African American GFR (CKD) >90 (>60 ml/min/1.73 sqM); Albumin 2.8 g/dL (3.5-5.0); Alkaline Phosphatase 44 U/L (38-126); Anion Gap 6 mmol/L; Blood Urea Nitrogen 5 mg/dL (7-17); Calcium 7.9 mg/dL (8.4-10.2); Carbon Dioxide 24 mmol/L (22-30); Chloride 111 mmol/L (98-107); Glucose 82 mg/dL (74-99); Potassium 3.9 mmol/L (3.5-5.1); Sodium 141 mmol/L (137-145); Total Bilirubin 0.3 mg/dL (0.2-1.3); Total Protein 5.4 g/dL (6.3-8.2)
[2019-02-11] MEDS: FAMOTIDINE 20 MG TAB PO SCH ×2 (08:44→20:47)
[2019-02-11] MEDS: MULTIVITAMINS, THERA 1 EACH TAB PO SCH (08:44)
[2019-02-11] MEDS: LEVOTHYROXINE 88 MCG TAB PO SCH (08:44)
[2019-02-11] MEDS: DOCUSATE 100 MG CAP PO SCH (08:44)
[2019-02-11] MEDS: ACETAMINOPHEN TAB 325 MG TAB PO PRN ×2 (08:46→18:03)
[2019-02-11] MEDS: SODIUM FERRIC GLUCONAT-SUCROSE 125 MG in SODIUM CHLORIDE 0.9% 100 ML IVPB SCH (08:49)
--- NOTE | 2019-02-11 13:53 | P.PN ---
Subjective Progress Note Date: 02/11/19 CHIEF COMPLAINT: Pilonidal abscess HISTORY OF PRESENT ILLNESS: The patient is a 33-year-old status post pilonidal excision with bleeding from her wound. She had an allergic reaction to a medication yesterday. She is feeling somewhat better but overall unsafe for her dressing changes. Home healthcare arrangements are still pending. She has not ambulated much as she reports moderate pressure. ROS: No reports of nausea and vomiting. No fevers or chills. No new chest pain. No productive sputum PHYSICAL EXAM: VITAL SIGNS: Reviewed CONSTITUTIONAL: Well developed and in no acute distress. EYES: Conjuctivae without sclera icterus. Extraocular movements grossly intact. HEAD, EARS, NOSE, THROAT: Moist buccal mucosa. Head is atraumatic, normocephalic. Hears conversational speech. No nasal drainage. NECK: Supple. No thyroidomegaly. RESPIRATORY: Non-labored respirations and equal bilateral excursions. CARDIOVASCULAR: Palpable 2+ radial pulses. Regular rate. Regular rhythm. ABDOMEN: Soft. No peritonitis. MUSCULOSKELETAL: No gross deformity of the lower extremities noted. No clubbin g. No cyanosis. SKIN: Good skin turgor. Well perfused. Dressing intact. NEUROLOGIC: Cranial nerves I through XII grossly intact. No focal or lateralizing signs. PSYCH: Appropriate affect. Alert and oriented to person, place and time. CLINCAL LABS: White blood cell count normal 5,900 ASSESSMENT: 1. Pilonidal abscess PLAN: 1. Continue hospitalization 2. Anticipate discharge for Wednesday Objective - Vital Signs Vital signs: Vital Signs Temp 98.8 F 02/11/19 07:00 Pulse 81 02/11/19 07:00 Resp 16 02/11/19 07:00 BP 97/63 02/11/19 07:00 Pulse Ox 99 02/11/19 07:00 Intake & Output 02/10/19 02/11/19 02/11/19 18:59 06:59 18:59 Intake Total 1480 Balance 1480 Intake: Intake, IV Titration 1000 Amount Piperacillin-Tazobactam 3 100 .375 gm In Sodium Chloride 0.9% 100 ml @ 25 mls/hr IVPB Q8HR [facility] Rx# :[id number] Sodium Chloride 0.9% 1, 800 000 ml @ 100 mls/hr IV . Q10H [facility] Rx#:[id number] Sodium Ferric Gluconat- 100 Sucrose 125 mg In Sodium Chloride 0.9% 100 ml @ 100 mls/hr IVPB DAILY [facility] Rx#:[id number] Oral 480 Other: Voiding Method Toilet Toilet # Voids 4 1 3 - Labs CBC & Chem 7: 02/11/19 06:24 02/11/19 06:24 Labs: Abnormal Lab Results - Last 24 Hours (Table) 02/11/19 02/11/19 Range/Units 06:24 06:24 RBC 2.44 L (3.80-5.40) m/uL Hgb 7.7 L (11.4-16.0) gm/dL Hct 22.5 L (34.0-46.0) % Chloride 111 H (98-107) mmol/L BUN 5 L (7-17) mg/dL Calcium 7.9 L (8.4-10.2) mg/dL Total Protein 5.4 L (6.3-8.2) g/dL Albumin 2.8 L (3.5-5.0) g/dL Microbiology - Last 24 Hours (Table) 02/09/19 08:29 Blood Culture - Preliminary Blood No Growth after 48 hours 02/08/19 17:00 Blood Culture - Preliminary Blood No Growth after 48 hours 02/09/19 08:30 Gram Stain - Preliminary Other - Other Wound Culture - Preliminary Gram Neg Bacilli Assessment and Plan (1) Acute blood loss anemia Current Visit: Yes Status: Acute Code(s): D62 - ACUTE POSTHEMORRHAGIC ANEMIA SNOMED Code(s): 072360957 (2) Hypotension Current Visit: Yes Status: Acute Code(s): I95.9 - HYPOTENSION, UNSPECIFIED SNOMED Code(s): 61335321 (3) Pilonidal abscess Current Visit: No Status: Acute Code(s): L05.01 - PILONIDAL CYST WITH ABSCESS SNOMED Code(s): 04212270
[2019-02-11] MEDS ORDERED: FERROUS SULFATE 325 MG TAB PO STA (14:39)
--- NOTE | 2019-02-11 15:01 | P.PN ---
Subjective Progress Note Date: 02/11/19 This is a 33-year-old female patient who presented with complaints of acute blood loss due to pilondial cyst removal 1 week prior. Patient reports that she was seen by surgeon 2 days ago and dressing was changed and since then she's had increased bleeding. She said that she had visiting nursing come out and change dressing and bleeding continued to increase. Patient has a past medical history of pulmonary embolism during in 2012. Patient reports that she was on Lovenox during her and treatment for 3 months after giving . Additional medical history includes hypothyroidism and uterine polyps. Patient reports she did have a period 2 weeks ago that did have heavy bleeding but she is no longer having any vaginal bleeding at this time. D-dimer elevated at 1.88. CT of the chest completed showing no CT evidence for pulmonary embolism no acute pulmonary process. EKG completed showing normal sinus rhythm. Initial hemoglobin 11.5. Hemoglobin decreasing to 8.1. Digital services are following. Patient's blood pressure low in the 80s. Patient receiving bolus per surgical services. Patient did have elevated temp on admit 100.3. Lactic acid 1.5. UA negative for infection. Patient is maintained on Zosyn. At this time patient denies any chest pain or shortness of breath. Patient is complaining about bilateral lower leg achiness will order venous Doppler to rule out DVT. Patient denies any nausea vomiting or diarrhea. Patient denies any urinary burning or frequency. On 02/10/2019 patient is alert and oriented 3. Patient reports some improvement with pain. Hemoglobin 7.7. Discussed case with surgical [facility]. Patient to receive IV iron today. Blood pressure remains marginal. Continue IV fluid. Patient denies chest pain or shortness of breath. Patient denies nausea vomiting or diarrhea. Patient denies any urinary burning or frequency Objective - Vital Signs Vital signs: Vital Signs Temp 98.8 F 02/11/19 07:00 Pulse 81 02/11/19 07:00 Resp 16 02/11/19 07:00 BP 97/63 02/11/19 07:00 Pulse Ox 99 02/11/19 07:00 Intake & Output 02/10/19 02/11/19 02/11/19 18:59 06:59 18:59 Intake Total 1480 Balance 1480 Intake: Intake, IV Titration 1000 Amount Piperacillin-Tazobactam 3 100 .375 gm In Sodium Chloride 0.9% 100 ml @ 25 mls/hr IVPB Q8HR [facility] Rx# :[id number] Sodium Chloride 0.9% 1, 800 000 ml @ 100 mls/hr IV . Q10H [facility] Rx#:[id number] Sodium Ferric Gluconat- 100 Sucrose 125 mg In Sodium Chloride 0.9% 100 ml @ 100 mls/hr IVPB DAILY [facility] Rx#:[id number] Oral 480 Other: Voiding Method Toilet Toilet # Voids 4 1 3 - Exam In general patient is alert and oriented 3 in no apparent distress Head normocephalic and atraumatic Neck supple no JVD no goiter Lungs clear to auscultation bilaterally no wheezing or crackles Heart regular rate and rhythm S1-S2, no rub or gallop Abdomen is soft nontender nondistended positive bowel sounds no hepatosple nomegaly Extremities no edema. Back dressing is clean dry and intact some shadowing noted to dressing Neuro no gross focal neurological deficit - Labs CBC & Chem 7: 02/11/19 06:24 02/11/19 06:24 Labs: Abnormal Lab Results - Last 24 Hours (Table) 02/11/19 02/11/19 Range/Units 06:24 06:24 RBC 2.44 L (3.80-5.40) m/uL Hgb 7.7 L (11.4-16.0) gm/dL Hct 22.5 L (34.0-46.0) % Chloride 111 H (98-107) mmol/L BUN 5 L (7-17) mg/dL Calcium 7.9 L (8.4-10.2) mg/dL Total Protein 5.4 L (6.3-8.2) g/dL Albumin 2.8 L (3.5-5.0) g/dL Microbiology - Last 24 Hours (Table) 02/09/19 08:29 Blood Culture - Preliminary Blood No Growth after 48 hours 02/08/19 17:00 Blood Culture - Preliminary Blood No Growth after 48 hours 02/09/19 08:30 Gram Stain - Preliminary Other - Other Wound Culture - Preliminary Gram Neg Bacilli Assessment and Plan Plan: 1. Acute blood loss secondary to pilondial cyst removal. Surgical services have been consulted. Hemoglobin dropping to 8.1. We'll continue to monitor and transfuse as needed. Hemoglobin 7.7. IV iron ordered 2. Febrile. Patient had elevated temp 100.3 on admit. Patient started on Zosyn. UA negative for UTI. Lactic acid 1.5. CTA of the chest showing no acute pulmonary process. Blood culture ordered. Wound cultures pending 3. Elevated d-dimer. CTA completed showing no CT evidence for acute pulmonary embolism no acute pulmonary process. Venous Doppler completed showing no evidence for DVT in bilateral legs 4. History of pulmonary embolism during in 2013. Patient reports that she did receive adequate treatment not currently on any anticoagulation 5. History of hypothyroidism. Synthroid resumed 6. Hypotension. Likely secondary to acute blood loss. Patient receiving bolus per surgical services. Will continue to monitor and transfuse as needed 7. History of uterine polyps DVT prophylaxis SCDs. GI prophylaxis Pepcid
[2019-02-11] MEDS: SODIUM CHLORIDE 0.9% 1,000 ML IV SCH ×2 (16:41→23:59)
[2019-02-11] MEDS: ONDANSETRON 4 MG/2 ML VIAL IVP PRN (22:12)
[2019-02-11] MEDS ORDERED: diphenhydrAMINE 50 MG/ML 1 ML VIAL IVP PRN (22:43)
[2019-02-12 02:03] VITALS: RESP 16
[2019-02-12] MEDS: LEVOTHYROXINE 88 MCG TAB PO SCH (05:55)
[2019-02-12] MEDS: ACETAMINOPHEN TAB 325 MG TAB PO PRN ×3 (05:55→20:17)
[2019-02-12] MEDS: PIPERACILLIN-TAZOBACTAM 3.375 GM in SODIUM CHLORIDE 0.9% 100 ML IVPB SCH ×2 (05:55→12:39)
[2019-02-12 06:54] LABS: Basophils # (A) 0.1 k/uL (0-0.2); Basophils % (A) 1 %; Eosinophils # (A) 0.2 k/uL (0-0.7); Eosinophils % (A) 4 %; HGB 7.9 gm/dL (11.4-16.0); Hypochromasia Slight; Lymphocytes # (A) 2.1 k/uL (1.0-4.8); Lymphocytes % (A) 33 %; MCH 31.2 pg (25.0-35.0); MCV 94.6 fL (80.0-100.0); Mean Platelet Volume 6.9; Monocytes # (A) 0.3 k/uL (0-1.0); Monocytes % (A) 5 %; Neutrophils # (A) 3.5 k/uL (1.3-7.7); Neutrophils % (A) 56 %; Platelet Count 229 k/uL (150-450); RBC 2.54 m/uL (3.80-5.40); RDW 14.4 % (11.5-15.5); WBC 6.3 k/uL (3.8-10.6)
[2019-02-12 07:08] LABS: Potassium 3.8 mmol/L (3.5-5.1); Total Bilirubin 0.3 mg/dL (0.2-1.3); Total Protein 5.8 g/dL (6.3-8.2)
[2019-02-12] MEDS: MULTIVITAMINS, THERA 1 EACH TAB PO SCH (08:47)
[2019-02-12] MEDS: DOCUSATE 100 MG CAP PO SCH (08:47)
[2019-02-12] MEDS: FAMOTIDINE 20 MG TAB PO SCH ×2 (08:47→20:16)
[2019-02-12] MEDS: SODIUM CHLORIDE 0.9% 1,000 ML IV SCH ×2 (12:34→23:39)
--- NOTE | 2019-02-12 14:56 | P.PN ---
Subjective Progress Note Date: 02/12/19 CHIEF COMPLAINT: Pilonidal abscess HISTORY OF PRESENT ILLNESS: The patient is a 33-year-old status post pilonidal excision with bleeding from her wound. Her pain is well controlled today. Arrangements for wound care and follow-up with the wound care center has been made. She is ambulating well. ROS: No reports of nausea and vomiting. No fevers or chills. No new chest pain. No productive sputum PHYSICAL EXAM: VITAL SIGNS: Reviewed CONSTITUTIONAL: Well developed and in no acute distress. EYES: Conjuctivae without sclera icterus. Extraocular movements grossly intact. HEAD, EARS, NOSE, THROAT: Moist buccal mucosa. Head is atraumatic, normocephalic. Hears conversational speech. No nasal drainage. RESPIRATORY: Non-labored respirations and equal bilateral excursions. CARDIOVASCULAR: Palpable 2+ radial pulses. Regular rate. Regular rhythm. ABDOMEN: Soft. No peritonitis. MUSCULOSKELETAL: No gross deformity of the lower extremities noted. No clubbing. No cyanosis. SKIN: Good skin turgor. Well perfused. Dressing intact along the buttocks. NEUROLOGIC: Cranial nerves I through XII grossly intact. No focal or lateralizing signs. PSYCH: Appropriate affect. Alert and oriented to person, place and time. CLINCAL LABS: White blood cell count normal 5,900 MICROBIOLOGY: Wound culture now comes back with Enterobacter were multiple drug resistance. ASSESSMENT: 1. Pilonidal abscess PLAN: 1. Antibiotics addressed for Enterobacter with resistance. 2. Patient stable for discharge tomorrow with home healthcare arrangements. Objective - Vital Signs Vital signs: Vital Signs Temp 98.6 F 02/12/19 01:15 Pulse 77 02/12/19 01:15 Resp 16 02/12/19 01:15 BP 91/57 02/12/19 01:15 Pulse Ox 99 02/12/19 01:15 Intake & Output 02/11/19 02/12/19 02/12/19 18:59 06:59 18:59 Other: # Voids 3 2 - Labs CBC & Chem 7: 02/12/19 05:38 02/12/19 05:38 Labs: Abnormal Lab Results - Last 24 Hours (Table) 02/12/19 02/12/19 Range/Units 05:38 05:38 RBC 2.54 L (3.80-5.40) m/uL Hgb 7.9 L (11.4-16.0) gm/dL Hct 24.0 L (34.0-46.0) % Chloride 111 H (98-107) mmol/L Glucose 73 L (74-99) mg/dL Calcium 8.0 L (8.4-10.2) mg/dL Total Protein 5.8 L (6.3-8.2) g/dL Albumin 3.0 L (3.5-5.0) g/dL Microbiology - Last 24 Hours (Table) 02/09/19 08:29 Blood Culture - Preliminary Blood No Growth after 72 hours 02/09/19 08:30 Anaerobic Culture - Preliminary Coccyx 02/08/19 17:00 Blood Culture - Preliminary Blood No Growth after 72 hours 02/09/19 08:30 Gram Stain - Final Other - Other Wound Culture - Final Enterobacter cloacae Assessment and Plan (1) Acute blood loss anemia Current Visit: Yes Status: Acute Code(s): D62 - ACUTE POSTHEMORRHAGIC ANEMIA SNOMED Code(s): 777936061 (2) Hypotension Current Visit: Yes Status: Acute Code(s): I95.9 - HYPOTENSION, UNSPECIFIED SNOMED Code(s): 49010301 (3) Pilonidal abscess Current Visit: No Status: Acute Code(s): L05.01 - PILONIDAL CYST WITH ABSCESS SNOMED Code(s): 92931032
--- NOTE | 2019-02-12 16:23 | P.DS ---
Providers Date of admission: 02/09/19 15:17 Expected date of discharge: 02/12/19 Attending physician: Shant Wallace Consults: 02/08/19 22:18 Consult Physician Urgent Consulting Provider: Mark Benz Consult Reason/Comments: post op Do you want consulting provider notified?: Yes, Notify in am 02/12/19 12:08 Consult Physician Routine Consulting Provider: Don Jimenez Consult Reason/Comments: wound infection Do you want consulting provider notified?: Yes Primary care physician: Shant Wallace [facility] Course: Diagnoses on discharge: 1. Acute blood loss secondary to pilondial cyst removal. Surgical services have been consulted. Hemoglobin dropping to 8.1. We'll continue to monitor and transfuse as needed. Hemoglobin 7.7. IV iron ordered 2. Febrile. Patient had elevated temp 100.3 on admit. Patient started on Zosyn. UA negative for UTI. Lactic acid 1.5. CTA of the chest showing no acute pulmonary process. Blood culture ordered. Wound cultures pending 3. Elevated d-dimer. CTA completed showing no CT evidence for acute pulmonary embolism no acute pulmonary process. Venous Doppler completed showing no evidence for DVT in bilateral legs 4. History of pulmonary embolism during in 2013. Patient reports that she did receive adequate treatment not currently on any anticoagulation 5. History of hypothyroidism. Synthroid resumed 6. Hypotension. Likely secondary to acute blood loss. Patient receiving bolus per surgical services. Will continue to monitor and transfuse as needed 7. History of uterine polyps Hospital course: This is a 33-year-old female patient who presented with complaints of acute blood loss due to pilondial cyst removal 1 week prior. Patient reports that she was seen by surgeon 2 days ago and dressing was changed and since then she's had increased bleeding. She said that she had visiting nursing come out and change dressing and bleeding continued to increase. Patient has a past medical history of pulmonary embolism during in 2013. Patient reports that she was on Lovenox during her and treatment for 3 months after giving . Additional medical history includes hypothyroidism and uterine polyps. Patient reports she did have a period 2 weeks ago that did have heavy bleeding but she is no longer having any vaginal bleeding at this time. D-dimer elevated at 1.88. CT of the chest completed showing no CT evidence for pulmonary embolism no acute pulmonary process. EKG completed showing normal sinus rhythm. Initial hemoglobin 11.5. Hemoglobin decreasing to 8.1. Digital services are following. Patient's blood pressure low in the 80s. Patient receiving bolus per surgical services. Patient did have elevated temp on admit 100.3. Lactic acid 1.5. UA negative for infection. Patient is maintained on Zosyn. At this time patient denies any chest pain or shortness of breath. Patient is complaining about bilateral lower leg achiness will order venous Doppler to rule out DVT. Patient denies any nausea vomiting or diarrhea. Patient denies any urinary burning or frequency. On 02/10/2019 patient is alert and oriented 3. Patient reports some improvement with pain. Hemoglobin 7.7. Discussed case with surgical ADULT BASIC EDUCATION MANAGER. Patient to receive IV iron today. Blood pressure remains marginal. Continue IV fluid. Patient denies chest pain or shortness of breath. Patient denies nausea vomiting or diarrhea. Patient denies any urinary burning or frequency On 02/12/2019 patient was seen and examined on the medical floor she is alert and oriented 3 in no apparent distress hemoglobin is up to 7.9 wound culture positive for Enterobacter cloacae, patient was seen by Dr. Jimenez infectious disease and recommendation is to give Cipro 500 mg by mouth twice daily for 7 days, patient is very eager to be discharged home, she will be discharged home today she will be followed as outpatient in 1-2 days, will arrange home care and follow-up at the wound care clinic and follow-up with surgery Dr. Benz Patient Condition at Discharge: Stable Plan - Discharge Summary Discharge Rx Participant: Yes New Discharge Prescriptions: New Acetaminophen with Codeine [Tylenol w/codeine #3] 1 tab PO Q6H PRN 3 Days #12 tab PRN Reason: Pain Ciprofloxacin HCl [Cipro] 500 mg PO Q12HR #14 tablet Ciprofloxacin HCl [Cipro] 500 mg PO BID tab HYDROcodone/APAP 7.5-325MG [Power 7.5-325] 1 each PO Q6H PRN tab PRN Reason: MODERATE Pain Continue Levothyroxine Sodium [Synthroid] 88 mcg PO DAILY Aspirin [Adult Low Dose Aspirin EC] 81 mg PO DAILY Multivitamins, Thera [Multivitamin (formulary)] 1 tab PO DAILY Ascorbic Acid [Vitamin C] 500 mg PO DAILY Acetaminophen [Tylenol Extra Strength] 1,000 mg PO Q6H PRN PRN Reason: Pain Docusate [Colace] 100 mg PO DAILY Discharge Medication List Levothyroxine Sodium [Synthroid] 88 mcg PO DAILY 01/19/19 [History] Aspirin [Adult Low Dose Aspirin EC] 81 mg PO DAILY 01/30/19 [History] Acetaminophen [Tylenol Extra Strength] 1,000 mg PO Q6H PRN 02/08/19 [History] Ascorbic Acid [Vitamin C] 500 mg PO DAILY 02/08/19 [History] Docusate [Colace] 100 mg PO DAILY 02/08/19 [History] Multivitamins, Thera [Multivitamin (formulary)] 1 tab PO DAILY 02/08/19 [History] Acetaminophen with Codeine [Tylenol w/codeine #3] 1 tab PO Q6H PRN 3 Days #12 tab 02/10/19 [Rx] Ciprofloxacin HCl [Cipro] 500 mg PO BID tab 02/12/19 [Rx] Ciprofloxacin HCl [Cipro] 500 mg PO Q12HR #14 tablet 02/12/19 [Rx] HYDROcodone/APAP 7.5-325MG [Power 7.5-325] 1 each PO Q6H PRN tab 02/12/19 [Rx] Follow up Appointment(s)/Referral(s): [facility], [NON-STAFF] - Shant Wallace MD [Primary Care Provider] - 1-2 days Mark Benz MD [STAFF PHYSICIAN] - 1 Week Activity/Diet/Wound Care/Special Instructions: Aquacel silver packing of the sacral wound applied dry change every 24--48hr depending upon drainage Follow-up in the wound care center this week with Dr. Jimenez, call on Wednesday, to make an appointment
[2019-02-12] MEDS: CIPROFLOXACIN HCL 500 MG TAB PO SCH (20:17)
[2019-02-12] MEDS: ONDANSETRON 4 MG/2 ML VIAL IVP PRN (20:17)
--- NOTE | 2019-02-12 23:58 | P.CONS ---
History of Present Illness - Reason for Consult Consult date: 02/12/19 sacral wound infection Requesting physician: Shant Wallace - Chief Complaint bleeding from the sacral wound x 1 day - History of Present Illness Patient is a 33-year-old female who is status post pilonidal cyst removal done by Dr. Cordoba about a week prior to presentation to her hospital patient presented back to [facility] ER on February 08, 2018 with a chief complaint of significant bleeding from her wound apparently the patient did follow with the surgeon the day before and had wound with back when the visiting nurses came to change her dressing she was noticed to have significant bleeding from the sacral wound area patient was advised presentation to the ER on arrival to the ER patient did have low-grade fever 100.3 patient white count was normal initially repeat blood white count was 13.3 patient did have a blood as well as local wound cultures obtained and has been treated with Zosyn with a wound culture coming back positive with Enterobacter cloaca that prompted this infectious disease consultation patient breathing has subsequently resolved patient did have mild dull aching pain to the sacral wound area with intensity to 3 out of 10 and no radiation Review of Systems CONSTITUTIONAL: Positive for weakness. low grade Fever EYES: No complaint. ENT:No complaint. RESPIRATORY: No complaint. CARDIOVASCULAR: No complaint. GENITOURINARY: No complaint. GASTROINTESTINAL: No complaint. MUSCULOSKELETAL: No complaint. INTEGUMENTARY: as per HPI PSYCHOLOGICAL: No complaint. ENDOCRINE: No complaint. NEUROLOGIC: No complaint. Past Medical History Past Medical History: Pulmonary Embolus (PE), Thyroid Disorder Additional Past Medical History / Comment(s): pilonidal cyst, possible current sinus infection, uterine polyps History of Any Multi-Drug Resistant Organisms: None Reported Past Surgical History: Appendectomy, Breast Surgery, Hernia Repair, Orthopedic Surgery Additional Past Surgical History / Comment(s): cyst drained, falopian tubes removed Past Anesthesia/Blood Transfusion Reactions: Postoperative Nausea & Vomiting (PONV) Past Psychological History: No Psychological Hx Reported Smoking Status: Former smoker Past Alcohol Use History: None Reported Additional Past Alcohol Use History / Comment(s): quit smoking 2011, smoked occasionally Past Drug Use History: None Reported - Past Family History Mother Family Medical History: No Reported History Medications and Allergies Home Medications Medication Instructions Recorded Confirmed Type Levothyroxine Sodium [Synthroid] 88 mcg PO DAILY 01/19/19 02/08/19 History Aspirin [Adult Low Dose Aspirin EC] 81 mg PO DAILY 01/30/19 02/08/19 History Acetaminophen [Tylenol Extra 1,000 mg PO Q6H PRN 02/08/19 02/08/19 History Strength] Ascorbic Acid [Vitamin C] 500 mg PO DAILY 02/08/19 02/08/19 History Docusate [Colace] 100 mg PO DAILY 02/08/19 02/08/19 History Multivitamins, Thera [Multivitamin 1 tab PO DAILY 02/08/19 02/08/19 History (formulary)] Acetaminophen with Codeine 1 tab PO Q6H PRN 3 Days #12 tab 02/10/19 Rx [Tylenol w/codeine #3] Ciprofloxacin HCl [Cipro] 500 mg PO BID tab 02/12/19 Rx Ciprofloxacin HCl [Cipro] 500 mg PO Q12HR #14 tablet 02/12/19 Rx HYDROcodone/APAP 7.5-325MG [[place] 1 each PO Q6H PRN tab 02/12/19 Rx 7.5-325] Allergies Allergy/AdvReac Type Severity Reaction Status Date / Time betamethasone Allergy Unknown Verified 02/08/19 18:40 [From Celestone] iron Allergy Rash/Hives Verified 02/12/19 07:29 latex Allergy Rash/Hives Verified 02/08/19 18:40 lorazepam [From Ativan] Allergy Unknown Verified 02/08/19 18:40 Pertussis Vaccines Allergy Rash/Hives Verified 02/08/19 18:40 Physical Exam Vitals: Vital Signs Temp Pulse Resp BP Pulse Ox 02/12/19 01:15 98.6 F 77 16 91/57 99 02/11/19 19:35 99.6 F 87 18 96/62 100 Intake and Output 02/12/19 02/12/19 02/12/19 06:59 14:59 22:59 Other: # Voids 2 GENERAL DESCRIPTION: Middle-aged Female lying in bed, no distress. No tachypnea or accessory muscle of respiration use. HEENT: Shows Pallor , no scleral icterus. Oral mucous membrane is dry. No pharyngeal erythema or thrush NECK: Trachea central, no thyromegaly. LUNGS: Unlabored breathing. Clear to auscultation anteriorly. No wheeze or crackle. HEART: S1, S2, regular rate and rhythm. No loud murmur ABDOMEN: Soft, no tenderness , guarding or rigidity, no organomegaly EXTREMITIES: No edema of feet. SKIN: No rash, no masses palpable. sacral wound base looks clean with no slough , no surrounding erythema or foul smelling drainage NEUROLOGICAL: The patient is awake, alert, oriented x3, mood and affect normal. Results CBC & Chem 7: 02/12/19 05:38 02/12/19 05:38 Labs: Abnormal Lab Results - Last 24 Hours (Table) 02/12/19 02/12/19 Range/Units 05:38 05:38 RBC 2.54 L (3.80-5.40) m/uL Hgb 7.9 L (11.4-16.0) gm/dL Hct 24.0 L (34.0-46.0) % Chloride 111 H (98-107) mmol/L Glucose 73 L (74-99) mg/dL Calcium 8.0 L (8.4-10.2) mg/dL Total Protein 5.8 L (6.3-8.2) g/dL Albumin 3.0 L (3.5-5.0) g/dL Microbiology - Last 24 Hours (Table) 02/09/19 08:29 Blood Culture - Preliminary Blood No Growth after 72 hours 02/09/19 08:30 Anaerobic Culture - Preliminary Coccyx 02/08/19 17:00 Blood Culture - Preliminary Blood No Growth after 72 hours 02/09/19 08:30 Gram Stain - Final Other - Other Wound Culture - Final Enterobacter cloacae Assessment and Plan Assessment: 1-patient with a positive cultures from her sacral wound which is result of a pilonidal cyst resection in this patient who has been admitted to the hospital with significant bleeding from the wound area but no significant purulence however the patient did have low-grade fever and mild elevated white count underlying cellulitis not entirely excluded, patient overall feeling better and wants to go home (1) Wound of sacral region Current Visit: Yes Status: Acute Code(s): S31.000A - UNSP OPN WND LOW BACK AND PELV W/O PENET RETROPERITON, INIT SNOMED Code(s): 681916158 (2) Infection due to Enterobacter cloacae Current Visit: Yes Status: Acute Code(s): A49.8 - OTHER BACTERIAL INFECTIONS OF UNSPECIFIED SITE SNOMED Code(s): 480898878 Plan: 1-prescription for ciprofloxacin 500 mg twice a day for 7 days has been sent to the pharmacy 2-local wound care with dry Aquacel silver packing to be changed daily 3-patient advised to follow-up in the wound care center next week we will continue local wound care We will follow on clinical condition and cultures to further adjust medication if needed Thank you for this consultation will follow this patient along with you Time with Patient: Greater than 30
[2019-02-13] MEDS: ACETAMINOPHEN TAB 325 MG TAB PO PRN ×2 (04:36→09:41)
[2019-02-13] MEDS: LEVOTHYROXINE 88 MCG TAB PO SCH (05:29)
[2019-02-13 07:39] VITALS: BP 96/59; PULSE 88; TEMP 98.2
[2019-02-13] MEDS: FAMOTIDINE 20 MG TAB PO SCH (08:40)
[2019-02-13] MEDS: DOCUSATE 100 MG CAP PO SCH (08:40)
[2019-02-13] MEDS: MULTIVITAMINS, THERA 1 EACH TAB PO SCH (08:40)
[2019-02-13] MEDS: CIPROFLOXACIN HCL 500 MG TAB PO SCH (08:40)
[2019-02-13 08:49] LABS: Basophils % (A) 0 %; Eosinophils # (A) 0.2 k/uL (0-0.7); Eosinophils % (A) 3 %; HCT 26.9 % (34.0-46.0); HGB 9.1 gm/dL (11.4-16.0); Lymphocytes # (A) 1.5 k/uL (1.0-4.8); Lymphocytes % (A) 25 %; MCH 31.4 pg (25.0-35.0); MCV 92.6 fL (80.0-100.0); Mean Platelet Volume 6.5; Monocytes # (A) 0.2 k/uL (0-1.0); Monocytes % (A) 4 %; Neutrophils # (A) 3.9 k/uL (1.3-7.7); Neutrophils % (A) 66 %; Platelet Count 268 k/uL (150-450); RBC 2.91 m/uL (3.80-5.40); RDW 14.7 % (11.5-15.5)
--- NOTE | 2019-02-13 09:45 | P.PN ---
Subjective Progress Note Date: 02/13/19 This is a 33-year-old female patient who presented with complaints of acute blood loss due to pilondial cyst removal 1 week prior. Patient reports that she was seen by surgeon 2 days ago and dressing was changed and since then she's had increased bleeding. She said that she had visiting nursing come out and change dressing and bleeding continued to increase. Patient has a past medical history of pulmonary embolism during in 2012. Patient reports that she was on Lovenox during her and treatment for 3 months after giving . Additional medical history includes hypothyroidism and uterine polyps. Patient reports she did have a period 2 weeks ago that did have heavy bleeding but she is no longer having any vaginal bleeding at this time. D-dimer elevated at 1.88. CT of the chest completed showing no CT evidence for pulmonary embolism no acute pulmonary process. EKG completed showing normal sinus rhythm. Initial hemoglobin 11.5. Hemoglobin decreasing to 8.1. Digital services are following. Patient's blood pressure low in the 80s. Patient receiving bolus per surgical services. Patient did have elevated temp on admit 100.3. Lactic acid 1.5. UA negative for infection. Patient is maintained on Zosyn. At this time patient denies any chest pain or shortness of breath. Patient is complaining about bilateral lower leg achiness will order venous Doppler to rule out DVT. Patient denies any nausea vomiting or diarrhea. Patient denies any urinary burning or frequency. On 02/10/2019 patient is alert and oriented 3. Patient reports some improvement with pain. Hemoglobin 7.7. Discussed case with surgical PROVIDER RELATIONS ADVOCATE. Patient to receive IV iron today. Blood pressure remains marginal. Continue IV fluid. Patient denies chest pain or shortness of breath. Patient denies nausea vomiting or diarrhea. Patient denies any urinary burning or frequency On 02/12/2019 patient was seen and examined on the medical floor she is alert and oriented 3 in no apparent distress hemoglobin is up to 7.9 wound culture positive for Enterobacter cloacae, patient was seen by Dr. Jimenez infectious disease and recommendation is to give Cipro 500 mg by mouth twice daily for 7 days, patient is very eager to be discharged home, she will be discharged home today she will be followed as outpatient in 1-2 days, will arrange home care and follow-up at the wound care clinic and follow-up with surgery Dr. Benz On 02/13/2019 patient alert and oriented 3. Hemoglobin improving to 9.1. Home health care arranged. Patient will be DC'd on Cipro antibiotic sent. Repeat CB C has been ordered for 2 days. At this time patient denies chest pain or shortness of breath. Patient denies nausea vomiting or diarrhea. Patient denies any urinary burning or frequency. Patient has been afebrile patient to be discharged home today Objective - Vital Signs Vital signs: Vital Signs Temp 98.2 F 02/13/19 07:00 Pulse 88 02/13/19 07:55 Resp 16 02/13/19 07:55 BP 96/59 02/13/19 07:00 Pulse Ox 96 02/13/19 07:00 Intake & Output 02/12/19 02/13/19 02/13/19 18:59 06:59 18:59 Intake Total 680 250 Balance 680 250 Intake: Intake, IV Titration 200 Amount Sodium Chloride 0.9% 1, 200 000 ml @ 100 mls/hr IV . Q10H [facility] Rx#:[id number] Oral 480 250 Other: Voiding Method Toilet # Voids 3 1 1 - Exam Head normocephalic Neck supple Lungs clear to auscultation bilaterally no wheezing or crackles Heart regular rate and rhythm S1-S2, no rub or gallop Abdomen is soft nontender nondistended positive bowel sounds no hepatosplenomegaly Extremities no edema. Back dressing is clean dry and intact some shadowing noted to dressing Neuro alert and orientated to 3 - Labs CBC & Chem 7: 02/13/19 08:30 02/12/19 05:38 Labs: Abnormal Lab Results - Last 24 Hours (Table) 02/13/19 Range/Units 08:30 RBC 2.91 L (3.80-5.40) m/uL Hgb 9.1 L (11.4-16.0) gm/dL Hct 26.9 L (34.0-46.0) % Microbiology - Last 24 Hours (Table) 02/08/19 17:00 Blood Culture - Preliminary Blood No Growth after 96 hours 02/09/19 08:29 Blood Culture - Preliminary Blood No Growth after 72 hours Assessment and Plan Assessment: 1. Acute blood loss secondary to pilondial cyst removal. Surgical services have been consulted. Hemoglobin dropping to 8.1. We'll continue to monitor and transfuse as needed. Hemoglobin 7.7. IV iron ordered. Hemoglobin today 9.[address] has been ordered for 2 days 2. Febrile. Patient had elevated temp 100.3 on admit. Patient started on Zosyn. UA negative for UTI. Lactic acid 1.5. CTA of the chest showing no acute pulmonary process. Blood culture negative. Wound culture growing Enterobacter cloacae. She was evaluated by infectious disease. Patient to be discharged on Cipro for 7 days 3. Elevated d-dimer. CTA completed showing no CT evidence for acute pulmonary embolism no acute pulmonary process. Venous Doppler completed showing no evidence for DVT in bilateral legs 4. History of pulmonary embolism during in 2013. Patient reports that she did receive adequate treatment not currently on any anticoagulation 5. History of hypothyroidism. Synthroid resumed 6. Hypotension. Likely secondary to acute blood loss. Patient receiving bolus per surgical services. Will continue to monitor and transfuse as needed. Resolved 7. History of uterine polyps DVT prophylaxis SCDs. GI prophylaxis Pepcid I performed an examination of the patient and discussed their management with the Nurse Practitioner. I have reviewed the Nurse Practitioner's notes and agree with the documented findings and plan of care
--- NOTE | 2019-02-13 12:04 | P.PN ---
Subjective Progress Note Date: 02/13/19 CHIEF COMPLAINT: post op HISTORY OF PRESENT ILLNESS: Patient examined this morning at the bedside. No further bleeding from surgical site. Hemoglobin 9.1 this morning. PHYSICAL EXAM: VITAL SIGNS: Reviewed. GENERAL: Well-developed in no acute distress. HEENT: No sclera icterus. Extraocular movements grossly intact. Moist buccal mucosa. Head is atraumatic, normocephalic. ABDOMEN: Soft. Nondistended. Nontender. NEUROLOGIC: Alert and oriented. Cranial nerves II through XII grossly intact. SKIN: Dressing to surgical site noted. ASSESSMENT: 1. Acute blood loss anemia from surgical site, suspect secondary to traumatic dressing change 2. Recent excision of pilonidal cyst PLAN: Patient is stable for discharge today from a surgical standpoint. Case management to arrange home care Patient to follow up outpatient with Dr. Benz Nurse practitioner note has been reviewed by physician. Signing provider agrees with the documented findings, assessment, and plan of care. Objective - Vital Signs Vital signs: Vital Signs Temp 98.2 F 02/13/19 07:00 Pulse 88 02/13/19 07:55 Resp 16 02/13/19 07:55 BP 96/59 02/13/19 07:00 Pulse Ox 96 02/13/19 07:00 Intake & Output 02/12/19 02/13/19 02/13/19 18:59 06:59 18:59 Intake Total 680 250 Balance 680 250 Intake: Intake, IV Titration 200 Amount Sodium Chloride 0.9% 1, 200 000 ml @ 100 mls/hr IV . Q10H [facility] Rx#:[id number] Oral 480 250 Other: Voiding Method Toilet # Voids 3 1 1 - Labs CBC & Chem 7: 02/13/19 08:30 02/12/19 05:38 Labs: Abnormal Lab Results - Last 24 Hours (Table) 02/13/19 Range/Units 08:30 RBC 2.91 L (3.80-5.40) m/uL Hgb 9.1 L (11.4-16.0) gm/dL Hct 26.9 L (34.0-46.0) % Microbiology - Last 24 Hours (Table) 02/09/19 08:29 Blood Culture - Preliminary Blood No Growth after 96 hours 02/08/19 17:00 Blood Culture - Preliminary Blood No Growth after 96 hours
--- NOTE | 2019-02-13 12:55 | PN ---
PROGRESS NOTE DATE OF SERVICE: 02/13/2019 REASON FOR FOLLOWUP: Sacral wound infection with bacteremia. INTERVAL HISTORY: The patient is currently afebrile. Patient has been breathing comfortably. Denies having any chest pain or any cough. No nausea, no vomiting or pain to the sacral wound area. PHYSICAL EXAMINATION: Blood pressure 96/59 with a pulse of 88, temperature 98.2, she is 96% on room air. General description is an elderly female up in the chair in no distress. RESPIRATORY SYSTEM: Unlabored breathing, clear to auscultation. HEART: S1, S2. Regular rate and rhythm. ABDOMEN: Soft, no tenderness. Sacral wound is currently dressed up. LABS: Hemoglobin 9.1, white count of 6.0, wound culture with Enterobacter. DIAGNOSTIC IMPRESSION AND PLAN: Patient with Enterobacter sacral wound, post pilonidal cyst resection in the hospital with bleeding, culture with Enterobacter. Oral antibiotics in the form of Cipro for one week. Local wound care with Aquacel Silver dressing. Follow up in the [facility] in one week. MMODL / IJN: [id number] /
== END 2019-02-13 14:34 | disposition home health service (06) | DRG 908 ==
LOC: EC 14:42 → 4SSUR 22:17 → OBSVTOIN 02-09 15:17
PROVIDERS: ADMIT Internal Medicine; ATTEND Internal Medicine
PROC: 0W3L0ZZ Control Bleeding in Lower Back, Open Approach (ICD-10-PCS; principal; 2019-02-09)
DX: L76.22 Postprocedural hemorrhage of skin and subcutaneous tissue following other procedure (principal); D62 Acute posthemorrhagic anemia; T81.49XA Infection following a procedure, other surgical site, initial encounter; I95.9 Hypotension, unspecified; B96.89 Other specified bacterial agents as the cause of diseases classified elsewhere; E03.9 Hypothyroidism, unspecified; Z79.82 Long term (current) use of aspirin; Z79.890 Hormone replacement therapy; Z79.899 Other long term (current) drug therapy; Z87.42 Personal history of other diseases of the female genital tract; Z86.711 Personal history of pulmonary embolism; Z90.49 Acquired absence of other specified parts of digestive tract; Z90.79 Acquired absence of other genital organ(s); Z87.891 Personal history of nicotine dependence; Z86.718 Personal history of other venous thrombosis and embolism; Z88.7 Allergy status to serum and vaccine; Z88.8 Allergy status to other drugs, medicaments and biological substances; Z91.040 Latex allergy status
CPT/HCPCS: 36415; 71275; 80053; 81001; 83605; 84484; 85025; 85027; 85379; 86850; 86900; 86901; 87040; 87070; 87075; 87077; 87186; 87205; 93005; 93970; 96361; 96374; 96375; 99285

== ENCOUNTER → 2019-04-17 | Outpatient (CLI) | payer BC ==
[2019-04-17 12:01] LABS: Basophils % (A) 1 %; Eosinophils # (A) 0.1 k/uL (0-0.7); Eosinophils % (A) 1 %; HCT 41.7 % (34.0-46.0); Lymphocytes # (A) 1.7 k/uL (1.0-4.8); Lymphocytes % (A) 27 %; MCH 29.2 pg (25.0-35.0); MCHC 31.3 g/dL (31.0-37.0); MCV 93.3 fL (80.0-100.0); Mean Platelet Volume 6.6; Monocytes # (A) 0.3 k/uL (0-1.0); Monocytes % (A) 5 %; Neutrophils # (A) 4.1 k/uL (1.3-7.7); Neutrophils % (A) 65 %; Platelet Count 258 k/uL (150-450); RBC 4.47 m/uL (3.80-5.40); WBC 6.3 k/uL (3.8-10.6)
== END ==
LOC: LABPAT 10:33
PROVIDERS: ATTEND Obstetrics & Gynecology
DX: Z01.812 Encounter for preprocedural laboratory examination (principal)
CPT/HCPCS: 36415; 85025

== ENCOUNTER 2019-04-21 06:23 | Day surgery (SDC) | payer BC ==
[2019-04-19 13:31] VITALS: BMI 23.6
--- NOTE | 2019-04-20 19:17 | P.HPOB ---
History of Present Illness H&P Date: 04/20/19 Chief Complaint: Dysfunctional uterine bleeding suspected polyp Gale is a 34-year-old female with suspected polyp based on ultrasound. She's had dysfunctional uterine bleeding and is scheduled for D&C with hysteroscopy. Risks/benefits/alternatives to this procedure were discussed with the patient in detail and all questions were answered for her prior to proceeding to the operating room. Past Medical History Past Medical History: Pulmonary Embolus (PE), Thyroid Disorder Additional Past Medical History / Comment(s): irregular menses,pilonidal cyst- open wound-currently has home care packing wound,sinus infection, uterine polyps,PE 2012 w/ History of Any Multi-Drug Resistant Organisms: None Reported Past Surgical History: Appendectomy, Breast Surgery, Hernia Repair, Orthopedic Surgery Additional Past Surgical History / Comment(s): cyst drained, bilateral falopian tubes removed,pilonidal cyst Past Anesthesia/Blood Transfusion Reactions: Postoperative Nausea & Vomiting (PONV) Smoking Status: Former smoker - Past Family History Mother Family Medical History: Deep Vein Thrombosis (DVT) Medications and Allergies Home Medications Medication Instructions Recorded Confirmed Type Levothyroxine Sodium [Synthroid] 88 mcg PO QAM 01/19/19 04/19/19 History Nitrofurantoin Macrocrystal 50 mg PO ONCE PRN 04/19/19 04/19/19 History [Macrodantin] Allergies Allergy/AdvReac Type Severity Reaction Status Date / Time betamethasone Allergy pt reports Verified 04/19/19 13:19 [From Celestone] "extreme dizziness about 3 days after",[email or web address] Allergy Rash/Hives Verified 04/19/19 13:19 latex Allergy Rash/Hives Verified 04/19/19 13:19 lorazepam [From Ativan] Allergy pt reports Verified 04/19/19 13:19 "extreme dizziness about 3 days after" Pertussis Vaccines Allergy Rash/Hives Verified 04/19/19 13:19 hydrocodone [From Hepler] AdvReac Nausea & Verified 04/19/19 13:27 Vomiting Exam Osteopathic Statement: *. No significant issues noted on an osteopathic structural exam other than those noted in the History and Physical/Consult. - OBG Physical Exam Breast: both: normal (no masses) Abdomen: bowel sounds normal, no diffuse tenderness, no bruit present, no guarding noted, no hepatomegaly, no splenomegaly, no mass Vulva: both: normal Vagina: normal moisture, no discharge Cervix: no lesion, no discharge Uterus: normal size, normal contour Adnexa: both: normal Anus/Rectum: normal perianal skin, no rectal mass, no hemorrhoids, heme negative
[~2019-04-21 06:23] MED LIST changes: +DEXAMETHASONE SOD PHOSPHATE 10 MG/ML 1 ML VIAL IV ONE; -HEPARIN SODIUM,PORCINE 5,000 UNIT/ML 1 ML VIAL SQ ONE; -KETOROLAC 30 MG/ML 1 ML VIAL IVP SCH; -METOCLOPRAMIDE 5 MG/ML 2 ML VIAL IVP PRN; +MIDAZOLAM 2 MG/2 ML VIAL IV PRN; +Pre Op ABX Message 1 EACH MISC MISCELLANE ONE; -metroNIDAZOLE-NS PMX 500 MG in SALINE 1 100ML.BAG IVPB ONE
[2019-04-21] MEDS ORDERED: LACTATED RINGERS 1,000 ML IV ONE (06:46)
[2019-04-21] MEDS ORDERED: KETOROLAC 30 MG/ML 1 ML VIAL ONE (07:30)
[2019-04-21] MEDS ORDERED: LIDOCAINE 1% INJ 10MG/ML (20 ML MDV) ONE (07:30)
[2019-04-21] MEDS ORDERED: MIDAZOLAM 2 MG/2 ML VIAL ONE (07:30)
[2019-04-21] MEDS ORDERED: PROPOFOL 10 MG/ML 20 ML VIAL IV ONE (07:30)
[2019-04-21] MEDS ORDERED: fentaNYL (PF) 50 MCG/ML 2 ML AMP ONE (07:30)
[2019-04-21] MEDS ORDERED: ceFAZolin 1,000 MG VIAL IVPB ONE (07:48)
[2019-04-21 08:20] VITALS: TEMP 97.4
[2019-04-21 08:38] VITALS: RESP 16
--- NOTE | 2019-04-21 08:51 | P.OP ---
Date of Procedure: 04/21/19 Preoperative Diagnosis: Dysfunctional uterine bleeding suspected polyp Postoperative Diagnosis: Same Procedure(s) Performed: D&C with hysteroscopy Anesthesia: KAVITHA Surgeon: German Morgan Estimated Blood Loss (ml): 10 Pathology: other (Uterine curettings) Condition: stable Disposition: same day Operative Findings: Gale was already bleeding when we started the procedure limiting some of visualization. Description of Procedure: Patient was taken to the operating suite where general anesthetic was found be adequate. She was prepped and draped in normal sterile fashion and placed in the dorsal lithotomy position. Initially a weighted speculum was inserted into the vagina and the anterior lip of the cervix was identified and grasped with an Allis clamp. Cervix was then dilated and sounded to 9 cm. Camera was then inserted no specific pathology could be identified due to bleeding. Therefore camera was removed and sharp curettings of the endometrium were obtained. All tissues collected, placed on Telfa, and sent to pathology for evaluation. Once this was completed, all incidents removed, sponge, lap, needle counts were all correct 2. Patient was then taken to the recovery room in stable and satisfactory condition. Plan - Discharge Summary Discharge Rx Participant: No New Discharge Prescriptions: New Ibuprofen [Motrin] 600 mg PO Q6HR PRN #30 tab PRN Reason: Pain No Action Levothyroxine Sodium [Synthroid] 88 mcg PO QAM Nitrofurantoin Macrocrystal [Macrodantin] 50 mg PO ONCE PRN PRN Reason: uti symptoms Discharge Medication List Levothyroxine Sodium [Synthroid] 88 mcg PO QAM 01/19/19 [History] Nitrofurantoin Macrocrystal [Macrodantin] 50 mg PO ONCE PRN 04/19/19 [History] Ibuprofen [Motrin] 600 mg PO Q6HR PRN #30 tab 04/21/19 [Rx] Follow up Appointment(s)/Referral(s): German Morgan DO [Doctor of Osteopathic Medicine] - 1 Week Patient Instructions/Handouts: *[facility] - Dilation & Curettage Home Instructions, *[facility] - (Anesthesia) Discharge Instructions Outpatient Surgery, *[facility] - Scopalamine Patch Instructions Discharge Disposition: HOME SELF-CARE
[2019-04-21 09:37] VITALS: BP 104/65; PULSE 76
== END 2019-04-21 10:07 | disposition home or self-care (01) ==
LOC: OR 06:23
PROVIDERS: ATTEND Obstetrics & Gynecology
DX: N84.0 Polyp of corpus uteri (principal); N93.8 Other specified abnormal uterine and vaginal bleeding; Z91.040 Latex allergy status; Z88.5 Allergy status to narcotic agent; Z88.8 Allergy status to other drugs, medicaments and biological substances; Z86.711 Personal history of pulmonary embolism; Z79.890 Hormone replacement therapy; Z79.899 Other long term (current) drug therapy; Z98.51 Tubal ligation status; Z90.49 Acquired absence of other specified parts of digestive tract; Z98.890 Other specified postprocedural states; Z87.891 Personal history of nicotine dependence; Z82.49 Family history of ischemic heart disease and other diseases of the circulatory system; Z91.048 Other nonmedicinal substance allergy status; Z88.7 Allergy status to serum and vaccine
CPT/HCPCS: 88305; 58558; J2250; J2405; J0690; J2001; J3010; J1885; J2704; J1170

== ENCOUNTER 2019-08-28 20:04 | Emergency (ER) | payer BC ==
[2019-08-28] MEDS ORDERED: ACETAMINOPHEN TAB 325 MG TAB PO STA (21:00)
[2019-08-28] MEDS ORDERED: SODIUM CHLORIDE 0.9% 1,000 ML IV STA (21:00)
[2019-08-28] MEDS ORDERED: diphenhydrAMINE 50 MG/ML 1 ML VIAL IVP STA (21:00)
[2019-08-28] MEDS ORDERED: PENICILLIN VK 500MG STARTER 4 TAB BTL PO STA (21:01)
[2019-08-28] MEDS ORDERED: PENICILLIN V POTASSIUM 250 MG TAB PO STA (21:01)
[2019-08-28] MEDS: METOCLOPRAMIDE 5 MG/ML 2 ML VIAL IVP STA ×2 (21:12→21:42)
--- NOTE | 2019-08-28 21:40 | CT ---
EXAMINATION TYPE: CT brain wo con DATE OF EXAM: 08/28/2019 COMPARISON: None HISTORY: Headache. CT DLP: 1084.4 mGycm Automated exposure control for dose reduction was used. Ventricles and sulci appear normal. There is no mass effect nor midline shift. There is no sign of in tracranial hemorrhage. There is no evidence of cerebral edema. Calvarium is intact. Sella turcica sal ears normal. IMPRESSION: Normal unenhanced head CT scan.
[2019-08-28 21:49] VITALS: BP 104/74; PULSE 83; RESP 16; TEMP 99.1
--- NOTE | 2019-08-28 22:21 | ED ---
General Adult HPI - General Chief complaint: Dental/Oral Stated complaint: Dental Pain Time Seen by Provider: 08/28/19 20:22 Source: patient, RN notes reviewed, old records reviewed Mode of arrival: ambulatory Limitations: no limitations - History of Present Illness Initial comments: 34-year-old female patient with fever chief complaint of right lower dental pain. Patient also reports a migraine headache. Reports the headache is similar to her migraine headaches in the past. Reports that it began approximately 3 hours prior to presentation. Describes it as behind her right eye. Reports that she has some photopsia subjective this of her migraine headaches in the past. Reports that she had some paresthesias on the right side of her face. Denies worst headache of life but does report that is severe. Denies other flag symptoms. Systemic: Pt denies fatigue, fever/chills, rash. Pt denies weakness, night sweats, weight loss. Neuro: Pt denies visual disturbances, syncope or pre-syncope. HEENT: Pt denies ocular discharge or irritation, otalgia, rhinorrhea, pharyngitis or notable lymphadenopathy. Cardiopulmonary: Pt denies chest pain, SOB, heart palpitations, dyspnea on exertion. Abdominal/GI: Pt denies abdominal pain, n/v/d. : Pt denies dysuria, burning w/ urination, frequency/urgency. Denies new onset urinary or bowel incontinence. MSK: Pt denies myalgia, loss of strength or function in extremities. Neuro: Pt denies new onset weakness, paresthesias. - Related Data Home Medications Medication Instructions Recorded Confirmed Levothyroxine Sodium [Synthroid] 88 mcg PO QAM 01/19/19 04/19/19 Nitrofurantoin Macrocrystal 50 mg PO ONCE PRN 04/19/19 04/19/19 [Macrodantin] Previous Rx's Medication Instructions Recorded Ibuprofen [Motrin] 600 mg PO Q6HR PRN #30 tab 04/21/19 Penicillin V Potassium [Pen Vee K] 500 mg PO QID #40 tablet 08/28/19 Allergies Allergy/AdvReac Type Severity Reaction Status Date / Time betamethasone Allergy pt reports Verified 04/19/19 13:19 [From Celestone] "extreme dizziness about 3 days after",[email or web address] Allergy Rash/Hives Verified 04/19/19 13:19 latex Allergy Rash/Hives Verified 04/19/19 13:19 lorazepam [From Ativan] Allergy pt reports Verified 04/19/19 13:19 "extreme dizziness about 3 days after" Pertussis Vaccines Allergy Rash/Hives Verified 04/19/19 13:19 hydrocodone [From Dorothy] AdvReac Nausea & Verified 04/19/19 13:27 Vomiting Review of Systems ROS Statement: Those systems with pertinent positive or pertinent negative responses have been documented in the HPI. ROS Other: All systems not noted in ROS Statement are negative. Past Medical History Past Medical History: Pulmonary Embolus (PE), Thyroid Disorder Additional Past Medical History / Comment(s): pilonidal cyst, possible current sinus infection, uterine polyps History of Any Multi-Drug Resistant Organisms: None Reported Past Surgical History: Appendectomy, Hernia Repair, Orthopedic Surgery Additional Past Surgical History / Comment(s): cyst drained, falopian tubes removed, breast augmentation, left should surgery. Past Anesthesia/Blood Transfusion Reactions: Postoperative Nausea & Vomiting (PONV) Past Psychological History: No Psychological Hx Reported Smoking Status: Former smoker Past Alcohol Use History: None Reported Past Drug Use History: None Reported General Exam - General Exam Comments Initial Comments: Constitutional: NAD, AOX3, Pt has pleasant affect. HEENT: NC/AT, trachea midline, neck supple, no lymphadenopathy. Posterior pharynx non erythematous, without exudates. External ears appear normal, without discharge. Mucous membranes moist. Eyes PERRLA, EOM intact. There is no scleral icterus. No pallor noted. Poor dentition noted. Multiple missing teeth lower jaw. Mild erythema around right lower incisor tooth region. No drainable abscess. Cardiopulmonary: RRR, no murmurs, rubs or gallops, no JVD noted. Lungs CTAB in anterior and posterior keller. No peripheral edema. Abdominal exam: Abdomen soft and non-distended. Abdomen non-tender to palpation in all 4 quadrants. Bowel sounds active in LLQ. No hepatosplenomegaly. No ecchymosis Neuro: CN II-XII intact. NIH 0. no nuchal rigidity. No raccon eyes, no martins sign, no hemotympanum. No cervical spinal tenderness. MSK: No posterior calf tenderness bilaterally, homans sign negative bilaterally. Posterior tibialis and radial pulse +2 bilaterally. Sensation intact in upper and lower extremities. Full active ROM in upper and lower extremities, 5/5 stregnth. Limitations: no limitations Course Vital Signs 08/28/19 08/28/19 20:07 21:48 Temperature 97.8 F 99.1 F Pulse Rate 90 83 Respiratory 18 16 Rate Blood Pressure 118/73 104/74 O2 Sat by Pulse 100 100 Oximetry Medical Decision Making - Medical Decision Making 34-year-old female patient with fever chief complaint of right lower dental pain. Patient also reports a migraine headache. Reports the headache is similar to her migraine headaches in the past. Reports that it began approximately 3 hours prior to presentation. Describes it as behind her right eye. Reports that she has some photopsia subjective this of her migraine headaches in the past. Reports that she had some paresthesias on the right side of her face. Denies worst headache of life but does report that is severe. Denies other flag symptoms. Patient vital signs are stable, afebrile. Physical exam is fully intact neurologically exam. Sensation intact. NIH is 0, gum Erythema noted. No drainable abscess. CT of the brain was performed which is negative. He reports the headache has resolved. Patient will be discharged with Penicillin VK for dental infection will be advised to follow up with primary care provider as well as dentist and return to ER if condition worsens. Case discussed with Dr. Lee. Disposition Clinical Impression: Pain, dental, Migraine headache Disposition: HOME SELF-CARE Condition: Stable Instructions (If sedation given, give patient instructions): Toothache (ED), Migraine Headache (ED) Additional Instructions: Follow-up with primary care provider and dentist tomorrow. Take antibiotics as directed. Return to ER if condition worsens. Is patient prescribed a controlled substance at d/c from ED?: No Referrals: Shant Wallace MD [Primary Care Provider] - 1-2 days
== END 2019-08-28 22:44 | disposition home or self-care (01) ==
LOC: EC 20:04
DX: K08.89 Other specified disorders of teeth and supporting structures (principal); G43.909 Migraine, unspecified, not intractable, without status migrainosus; E07.9 Disorder of thyroid, unspecified; Z79.890 Hormone replacement therapy; Z88.8 Allergy status to other drugs, medicaments and biological substances; Z91.048 Other nonmedicinal substance allergy status; Z91.040 Latex allergy status; Z88.7 Allergy status to serum and vaccine; Z88.5 Allergy status to narcotic agent; Z86.711 Personal history of pulmonary embolism
CPT/HCPCS: 70450; 99284; 96374; 96375; 96361; J1200; J2765

== ENCOUNTER 2019-10-16 10:24 | Emergency (ER) | payer BC ==
--- NOTE | 2019-10-16 11:14 | ED ---
Lower Extremity Injury HPI - General Chief Complaint: Extremity Injury, Lower Stated Complaint: leg cramping Time Seen by Provider: 10/16/19 11:05 Source: patient Mode of arrival: ambulatory Limitations: no limitations - History of Present Illness Initial Comments: Patient is a 34-year-old female with history of PE presenting to the emergency department with a chief complaint of leg cramping. Patient reports less than 2 weeks ago she took a long trip to [place]. Patient reports on the ride back she developed cramping on the left lower extremity, especially on the posterior aspect. Patient reports the cramping continued to persist until today. States the pain is worse with ambulation but it is also noticeable at rest. States she does have history of PE. not currently on oral contraceptives. No chemotherapy. No shortness of breath or chest pain. - Related Data Home Medications Medication Instructions Recorded Confirmed Levothyroxine Sodium [Synthroid] 88 mcg PO QAM 01/19/19 04/19/19 Nitrofurantoin Macrocrystal 50 mg PO ONCE PRN 04/19/19 04/19/19 [Macrodantin] Previous Rx's Medication Instructions Recorded Ibuprofen [Motrin] 600 mg PO Q6HR PRN #30 tab 04/21/19 Penicillin V Potassium [Pen Vee K] 500 mg PO QID #40 tablet 08/28/19 Allergies Allergy/AdvReac Type Severity Reaction Status Date / Time betamethasone Allergy pt reports Verified 10/16/19 11:03 [From Celestone] "extreme dizziness about 3 days after",[email or web address] Allergy Rash/Hives Verified 10/16/19 11:03 latex Allergy Rash/Hives Verified 10/16/19 11:03 lorazepam [From Ativan] Allergy pt reports Verified 10/16/19 11:03 "extreme dizziness about 3 days after" Pertussis Vaccines Allergy Rash/Hives Verified 10/16/19 11:03 hydrocodone [From Post] AdvReac Nausea & Verified 10/16/19 11:03 Vomiting Review of Systems ROS Statement: Those systems with pertinent positive or pertinent negative responses have been documented in the HPI. ROS Other: All systems not noted in ROS Statement are negative. Past Medical History Past Medical History: Pulmonary Embolus (PE), Thyroid Disorder Additional Past Medical History / Comment(s): pilonidal cyst, possible current sinus infection, uterine polyps History of Any Multi-Drug Resistant Organisms: None Reported Past Surgical History: Appendectomy, Hernia Repair, Orthopedic Surgery Additional Past Surgical History / Comment(s): cyst drained, falopian tubes removed, breast augmentation, left should surgery. Past Anesthesia/Blood Transfusion Reactions: Postoperative Nausea & Vomiting (PONV) Past Psychological History: No Psychological Hx Reported Smoking Status: Former smoker Past Alcohol Use History: None Reported Past Drug Use History: None Reported - Past Family History Mother Family Medical History: Deep Vein Thrombosis (DVT) General Exam Limitations: no limitations General appearance: alert, in no apparent distress Head exam: Present: atraumatic, normocephalic, normal inspection Eye exam: Present: normal appearance, PERRL, EOMI Pupils: Present: normal accommodation ENT exam: Present: normal exam, mucous membranes moist Neck exam: Present: normal inspection, full ROM Respiratory exam: Present: normal lung sounds bilaterally. Absent: respiratory distress, wheezes Cardiovascular Exam: Present: regular rate, normal rhythm, normal heart sounds Extremities exam: Present: normal inspection, full ROM, tenderness (Tenderness along the posterior aspect of the left distal thigh, popliteal region and calf.), normal capillary refill, calf tenderness (Positive Homans left lower extremity), other (+2 ulnar and radial pulses. +2 dorsalis pedis and posterior tibials bilaterally.). Absent: pedal edema (No signs of unilateral extremity swelling.), joint swelling Back exam: Present: normal inspection, full ROM Neurological exam: Present: alert, oriented X3 Psychiatric exam: Present: normal affect, normal mood Skin exam: Present: warm, dry, intact, normal color Course Vital Signs 10/16/19 10/16/19 10:59 12:16 Temperature 98.3 F 98.6 F Pulse Rate 96 71 Respiratory 18 16 Rate Blood Pressure 109/76 103/70 O2 Sat by Pulse 100 99 Oximetry Medical Decision Making - Medical Decision Making Patient is a 34-year-old female presenting to the emergency department with a chief complaint of left leg pain. Patient has history of PE. She does have a cramping sensation as been occurring for the last week. She did have a long trip lasting over 7 hours recently. Ultrasound obtained of left lower extremity reveals no signs of DVT. Denies chest pain or shortness of breath. Return parameters were thoroughly discussed the patient is understanding and agreeable. Case discussed with physician. Disposition Clinical Impression: Cramps of left lower extremity Disposition: HOME SELF-CARE Condition: Stable Instructions (If sedation given, give patient instructions): Deep Vein Thrombosis (DC) Additional Instructions: Follow-up with her primary care. Return to emergency department if symptoms wo rsen. Is patient prescribed a controlled substance at d/c from ED?: No Referrals: Shant Wallace MD [Primary Care Provider] - 1-2 days Time of Disposition: 12:02
--- NOTE | 2019-10-16 11:45 | US ---
EXAMINATION TYPE: US venous doppler duplex LE LT DATE OF EXAM: 10/16/2019 11:13 AM COMPARISON: 02/09/2019 CLINICAL HISTORY: 34-year-old female History of PE, positive Homans. Left leg pain x 1 week SIDE PERFORMED: Left TECHNIQUE: The lower extremity deep venous system is examined utilizing real time linear array sonog ty with graded compression, doppler sonography and color-flow sonography. FINDINGS: VESSELS IMAGED: External Iliac Vein (EIV) Common Femoral Vein Deep Femoral Vein Greater Saphenous Vein * Femoral Vein Popliteal Vein Small Saphenous Vein * Proximal Calf Veins (* superficial vessels) Left Leg: Appears negative for DVT IMPRESSION: No evidence for DVT within the left lower extremity imaged from the groin to the upper calf.
[2019-10-16 12:17] VITALS: BP 103/70; PULSE 71; RESP 16; TEMP 98.6
== END 2019-10-16 12:21 | disposition home or self-care (01) ==
LOC: EC 10:24
DX: R25.2 Cramp and spasm (principal); E07.9 Disorder of thyroid, unspecified; Z79.890 Hormone replacement therapy; Z87.891 Personal history of nicotine dependence; Z88.5 Allergy status to narcotic agent; Z88.7 Allergy status to serum and vaccine; Z88.8 Allergy status to other drugs, medicaments and biological substances; Z91.040 Latex allergy status; Z91.048 Other nonmedicinal substance allergy status; Z86.711 Personal history of pulmonary embolism; Z82.49 Family history of ischemic heart disease and other diseases of the circulatory system; Z90.49 Acquired absence of other specified parts of digestive tract
CPT/HCPCS: 99283

== ENCOUNTER 2019-12-14 04:07 | Emergency (ER) | payer BC ==
[2019-12-14 04:15] VITALS: TEMP 98.1
[2019-12-14] MEDS ORDERED: MAG HYDROX/AL HYDROX/SIMETH 30 ML, HYOSCYAMINE ELIXIR 10 ML PO STA ×2 (04:31)
[2019-12-14] MEDS ORDERED: ONDANSETRON ODT 4 MG TAB PO STA (04:31)
[2019-12-14] MEDS ORDERED: KETOROLAC 60 MG/2 ML VIAL IM STA (04:31)
--- NOTE | 2019-12-14 04:32 | ED ---
Abdominal Pain HPI - General Chief Complaint: Nausea/Vomiting/Diarrhea Stated Complaint: Nausea, diarrhea Time Seen by Provider: 12/14/19 04:11 Source: patient, RN notes reviewed, old records reviewed Mode of arrival: ambulatory - History of Present Illness Initial Comments: This is a 34-year-old female DF she presents today for evaluation of abdominal pain diffuse abdominal pain started prior earlier in the day and is now suprapubic abdominal pain. No dysuria. No fevers no travel history. No modifying factors for pain. No recent travel history or sick contacts again, p freddie states the pain is crampy and stabbing in her abdomen. In her suprapubic area. Patient has had both fallopian tubes tied MD Complaint: abdominal pain, other (Suprapubic abdominal pain) -: hour(s) Location: suprapubic Radiation: suprapubic Migration to: suprapubic Severity: moderate Severity scale (1-10): 7 Quality: cramping Consistency: constant Improves With: nothing Worsens With: nothing Associated Symptoms: denies other symptoms - Related Data Home Medications Medication Instructions Recorded Confirmed Levothyroxine Sodium [Synthroid] 88 mcg PO QAM 01/19/19 04/19/19 Nitrofurantoin Macrocrystal 50 mg PO ONCE PRN 04/19/19 04/19/19 [Macrodantin] Previous Rx's Medication Instructions Recorded Ibuprofen [Motrin] 600 mg PO Q6HR PRN #30 tab 04/21/19 Penicillin V Potassium [Pen Vee K] 500 mg PO QID #40 tablet 08/28/19 Allergies Allergy/AdvReac Type Severity Reaction Status Date / Time betamethasone Allergy pt reports Verified 12/14/19 04:15 [From [place]] "extreme dizziness about 3 days after",[email or web address] Allergy Rash/Hives Verified 12/14/19 04:15 latex Allergy Rash/Hives Verified 12/14/19 04:15 lorazepam [From Ativan] Allergy pt reports Verified 12/14/19 04:15 "extreme dizziness about 3 days after" Pertussis Vaccines Allergy Rash/Hives Verified 12/14/19 04:15 hydrocodone [From [place]] AdvReac Nausea & Verified 12/14/19 04:15 Vomiting Review of Systems ROS Statement: Those systems with pertinent positive or pertinent negative responses have been documented in the HPI. ROS Other: All systems not noted in ROS Statement are negative. Past Medical History Past Medical History: Pulmonary Embolus (PE), Thyroid Disorder Additional Past Medical History / Comment(s): pilonidal cyst, possible current sinus infection, uterine polyps History of Any Multi-Drug Resistant Organisms: None Reported Past Surgical History: Appendectomy, Hernia Repair, Orthopedic Surgery Additional Past Surgical History / Comment(s): cyst drained, falopian tubes removed, breast augmentation, left should surgery. Past Anesthesia/Blood Transfusion Reactions: Postoperative Nausea & Vomiting (PONV) Past Psychological History: No Psychological Hx Reported Smoking Status: Never smoker Past Alcohol Use History: None Reported Past Drug Use History: None Reported - Past Family History Mother Family Medical History: Deep Vein Thrombosis (DVT) General Exam General appearance: alert, in no apparent distress Head exam: Present: atraumatic, normocephalic, normal inspection Eye exam: Present: normal appearance, PERRL, EOMI. Absent: scleral icterus, conjunctival injection, periorbital swelling ENT exam: Present: normal exam, mucous membranes moist Neck exam: Present: normal inspection. Absent: tenderness, meningismus, lymphadenopathy Respiratory exam: Present: normal lung sounds bilaterally. Absent: respiratory distress, wheezes, rales, rhonchi, stridor Cardiovascular Exam: Present: regular rate, normal rhythm, normal heart sounds. Absent: systolic murmur, diastolic murmur, rubs, gallop, clicks GI/Abdominal exam: Present: soft, tenderness (Mild suprapubic), normal bowel sounds. Absent: distended, guarding, rebound, rigid Extremities exam: Present: normal inspection, full ROM, normal capillary refill. Absent: tenderness, pedal edema, joint swelling, calf tenderness Back exam: Present: normal inspection Neurological exam: Present: alert, oriented X3, CN II-XII intact Psychiatric exam: Present: normal affect, normal mood Skin exam: Present: warm, dry, intact, normal color. Absent: rash Course Vital Signs 12/14/19 04:10 Temperature 98.1 F Pulse Rate 83 Respiratory 18 Rate Blood Pressure 110/76 O2 Sat by Pulse 100 Oximetry - Reevaluation(s) Reevaluation #1: 12/14/19 06:02 Medical records reviewed Reevaluation #2: 12/14/19 06:02 Patient does states she is on her period Reevaluation #3: 12/14/19 06:02 Patient refusing significant pain medication, will states pain is mildly improved Medical Decision Making - Medical Decision Making 34 female specific abdominal pain. Labwork CT and urinalysis are negative. Patient cultured for CT. Patient to be discharged home - Lab Data Result diagrams: 12/14/19 05:40 12/14/19 05:40 Lab Results 12/14/19 12/14/19 12/14/19 Range/Units 04:39 04:39 05:40 WBC 9.4 (3.8-10.6) k/uL RBC 4.26 (3.80-5.40) m/uL Hgb 13.5 (11.4-16.0) gm/dL Hct 39.9 (34.0-46.0) % MCV 93.7 (80.0-100.0) fL MCH 31.8 (25.0-35.0) pg MCHC 33.9 (31.0-37.0) g/dL RDW 12.4 (11.5-15.5) % Plt Count 263 (150-450) k/uL Neutrophils % 77 % Lymphocytes % 18 % Monocytes % 3 % Eosinophils % 0 % Basophils % 0 % Neutrophils # 7.2 (1.3-7.7) k/uL Lymphocytes # 1.7 (1.0-4.8) k/uL Monocytes # 0.3 (0-1.0) k/uL Eosinophils # 0.0 (0-0.7) k/uL Basophils # 0.0 (0-0.2) k/uL Sodium (137-145) mmol/L Potassium (3.5-5.1) mmol/L Chloride (98-107) mmol/L Carbon Dioxide (22-30) mmol/L Anion Gap mmol/L BUN (7-17) mg/dL Creatinine (0.52-1.04) mg/dL Est GFR (CKD-EPI)AfAm (>60 ml/min/1.73 sqM) Est GFR (CKD-EPI)NonAf (>60 ml/min/1.73 sqM) Glucose (74-99) mg/dL Calcium (8.4-10.2) mg/dL Total Bilirubin (0.2-1.3) mg/dL AST (14-36) U/L ALT (4-34) U/L Alkaline Phosphatase (38-126) U/L Total Protein (6.3-8.2) g/dL Albumin (3.5-5.0) g/dL Amylase (30-110) U/L Lipase (23-300) U/L Urine Color Yellow Urine Appearance Cloudy H (Clear) Urine pH 8.0 (5.0-8.0) Ur Specific [place] 1.014 (1.001-1.035) Urine Protein Negative (Negative) Urine Glucose (UA) Negative (Negative) Urine Ketones Negative (Negative) Urine Blood Negative (Negative) Urine Nitrite Negative (Negative) Urine Bilirubin Negative (Negative) Urine Urobilinogen <2.0 (<2.0) mg/dL Ur Leukocyte Esterase Negative (Negative) Urine RBC 1 (0-5) /hpf Urine WBC 1 (0-5) /hpf Ur Squamous Epith Cells 1 (0-4) /hpf Urine Bacteria Rare H (None) /hpf Urine Mucus Rare H (None) /hpf Urine HCG, Qual Not Detected (Not Detectd) 12/14/19 Range/Units 05:40 WBC (3.8-10.6) k/uL RBC (3.80-5.40) m/uL Hgb (11.4-16.0) gm/dL Hct (34.0-46.0) % MCV (80.0-100.0) fL MCH (25.0-35.0) pg MCHC (31.0-37.0) g/dL RDW (11.5-15.5) % Plt Count (150-450) k/uL Neutrophils % % Lymphocytes % % Monocytes % % Eosinophils % % Basophils % % Neutrophils # (1.3-7.7) k/uL Lymphocytes # (1.0-4.8) k/uL Monocytes # (0-1.0) k/uL Eosinophils # (0-0.7) k/uL Basophils # (0-0.2) k/uL Sodium 137 (137-145) mmol/L Potassium 3.9 (3.5-5.1) mmol/L Chloride 104 (98-107) mmol/L Carbon Dioxide 25 (22-30) mmol/L Anion Gap 8 mmol/L BUN 11 (7-17) mg/dL Creatinine 0.81 (0.52-1.04) mg/dL Est GFR (CKD-EPI)AfAm >90 (>60 ml/min/1.73 sqM) Est GFR (CKD-EPI)NonAf >90 (>60 ml/min/1.73 sqM) Glucose 120 H (74-99) mg/dL Calcium 9.9 (8.4-10.2) mg/dL Total Bilirubin 0.7 (0.2-1.3) mg/dL AST 24 (14-36) U/L ALT 13 (4-34) U/L Alkaline Phosphatase 73 (38-126) U/L Total Protein 7.7 (6.3-8.2) g/dL Albumin 4.4 (3.5-5.0) g/dL Amylase 60 (30-110) U/L Lipase 117 (23-300) U/L Urine Color Urine Appearance (Clear) Urine pH (5.0-8.0) Ur Specific [place] (1.001-1.035) Urine Protein (Negative) Urine Glucose (UA) (Negative) Urine Ketones (Negative) Urine Blood (Negative) Urine Nitrite (Negative) Urine Bilirubin (Negative) Urine Urobilinogen (<2.0) mg/dL Ur Leukocyte Esterase (Negative) Urine RBC (0-5) /hpf Urine WBC (0-5) /hpf Ur Squamous Epith Cells (0-4) /hpf Urine Bacteria (None) /hpf Urine Mucus (None) /hpf Urine HCG, Qual (Not Detectd) - Radiology Data Radiology results: report reviewed (CT abdomen and pelvis is negative for acute disease), image reviewed Disposition Clinical Impression: Abdominal pain Disposition: HOME SELF-CARE Condition: Good Instructions (If sedation given, give patient instructions): Abdominal Pain ( ED) Is patient prescribed a controlled substance at d/c from ED?: No Referrals: Shant Wallace MD [Primary Care Provider] - 1-2 days
[2019-12-14 04:51] LABS: Appearance,Urine Cloudy (Clear); Bacteria,Urine Rare /hpf; Bilirubin,Urine Negative (Negative); Blood,Urine Negative (Negative); Color,Urine Yellow; Glucose,Urine (UA) Negative (Negative); Ketones,Urine Negative (Negative); Leukocyte Esterase,Urine Negative (Negative); Mucus,Urine Rare /hpf; Nitrite,Urine Negative (Negative); Protein,Urine Negative (Negative); RBC,Urine 1 /hpf (0-5); Specific Gravity,Urine 1.014 (1.001-1.035); Squamous Epithelial Cell,Urine 1 /hpf (0-4); Urobilinogen,Urine <2.0 mg/dL (<2.0); WBC,Urine 1 /hpf (0-5)
--- NOTE | 2019-12-14 05:03 | XR ---
EXAMINATION TYPE: XR abdomen acute w cxr DATE OF EXAM: 12/14/2019 COMPARISON: Abdomen x-ray 01/22/2019 HISTORY: Abdominal pain TECHNIQUE: 4 views FINDINGS: Heart and mediastinum are normal. Lungs are clear of infiltrate. There is no pleural effusi on. There are no hilar masses. Bony thorax is intact. There is no sign of intestinal obstruction or pneumoperitoneum. Fecal pattern is normal. There is sin gle surgical clip in the right mid abdomen. There are no pathologic calcifications over the kidneys. IMPRESSION: Nonacute abdomen. No active cardiopulmonary disease. Abdomen shows no adverse change.
[2019-12-14] MEDS ORDERED: KETOROLAC 30 MG/ML 1 ML VIAL IVP STA (05:18)
[2019-12-14] MEDS ORDERED: SODIUM CHLORIDE 0.9% 1,000 ML IV STA (05:18)
[2019-12-14] MEDS ORDERED: ACETAMINOPHEN TAB 500 MG TAB PO STA (05:19)
[2019-12-14 05:58] LABS: ALT 13 U/L (4-34); AST 24 U/L (14-36); African American GFR (CKD) >90 (>60 ml/min/1.73 sqM); Albumin 4.4 g/dL (3.5-5.0); Alkaline Phosphatase 73 U/L (38-126); Amylase 60 U/L (30-110); Anion Gap 8 mmol/L; Blood Urea Nitrogen 11 mg/dL (7-17); Calcium 9.9 mg/dL (8.4-10.2); Carbon Dioxide 25 mmol/L (22-30); Chloride 104 mmol/L (98-107); Glucose 120 mg/dL (74-99); Non-African American GFR(CKD) >90 (>60 ml/min/1.73 sqM); Potassium 3.9 mmol/L (3.5-5.1); Sodium 137 mmol/L (137-145); Total Bilirubin 0.7 mg/dL (0.2-1.3); Total Protein 7.7 g/dL (6.3-8.2)
[2019-12-14 06:00] LABS: Basophils % (A) 0 %; Eosinophils % (A) 0 %; HCT 39.9 % (34.0-46.0); HGB 13.5 gm/dL (11.4-16.0); Lymphocytes # (A) 1.7 k/uL (1.0-4.8); Lymphocytes % (A) 18 %; MCH 31.8 pg (25.0-35.0); MCHC 33.9 g/dL (31.0-37.0); MCV 93.7 fL (80.0-100.0); Mean Platelet Volume 7.1; Monocytes # (A) 0.3 k/uL (0-1.0); Monocytes % (A) 3 %; Neutrophils # (A) 7.2 k/uL (1.3-7.7); Neutrophils % (A) 77 %; Platelet Count 263 k/uL (150-450); RBC 4.26 m/uL (3.80-5.40); RDW 12.4 % (11.5-15.5); WBC 9.4 k/uL (3.8-10.6)
--- NOTE | 2019-12-14 06:00 | CT ---
EXAMINATION TYPE: CT abdomen pelvis w con DATE OF EXAM: 12/14/2019 COMPARISON: None HISTORY: pain CT DLP: 675.3 mGycm Automated exposure control for dose reduction was used. CONTRAST: Performed with IV Contrast, patient injected with 100 mL of Isovue 300. Multiple axial sections were obtained from the diaphragm to the floor the pelvis with IV contrast. FINDINGS: The heart size is normal. Lung bases are clear. There is no pleural effusion. Liver spleen pancreas stomach gallbladder appear normal. Bile ducts are not dilated. There is no adrenal mass. The kidneys show satisfactory contrast opacification. There is no hydroneph rosis. Delayed images show normal renal excretion. There is no retroperitoneal adenopathy. There are surgical clips apparently from appendectomy. Bladde r distends smoothly. Uterus is anteverted. There is no free fluid in the pelvis. Lumbar vertebra have normal spacing and alignment. Posterior elements are intact. Bony pelvis appears intact. There is no mesenteric edema. There is no ascites or free air. There is no evidence of a bowel obstru ction. There is broad-based umbilical hernia that contains fat. IMPRESSION: Negative CT scan abdomen and pelvis.
[2019-12-14 06:15] VITALS: BP 96/69; PULSE 78; RESP 16
[2019-12-15 13:43] LABS: C. trachomatis,PCR Negative (Neg,Equiv); Chlamydia trachomatis Source Urine; N. gonorrhoeae,PCR Negative (Neg,Equiv); Neisseria Source Urine
== END 2019-12-14 06:15 | disposition home or self-care (01) ==
LOC: EC 04:07
DX: R10.30 Lower abdominal pain, unspecified (principal); E07.9 Disorder of thyroid, unspecified; Z79.890 Hormone replacement therapy; Z86.711 Personal history of pulmonary embolism; Z88.5 Allergy status to narcotic agent; Z88.7 Allergy status to serum and vaccine; Z88.8 Allergy status to other drugs, medicaments and biological substances; Z91.040 Latex allergy status; Z91.048 Other nonmedicinal substance allergy status
CPT/HCPCS: 36415; 80053; 82150; 83690; 85025; 81001; 81025; 87491; 87591; 74022; 74177; 99285; 96360; Q9967

== ENCOUNTER 2020-02-19 00:40 | Emergency (ER) | payer BC ==
[2020-02-19 00:48] VITALS: BP 115/79; PULSE 89; RESP 16; TEMP 98.1
[2020-02-19] MEDS ORDERED: SODIUM CHLORIDE 0.9% 1,000 ML IV STA (01:08)
[2020-02-19] MEDS ORDERED: ONDANSETRON 4 MG/2 ML VIAL IVP STA ×2 (01:08→03:26)
[2020-02-19] MEDS ORDERED: FAMOTIDINE 20 MG/2 ML VIAL IV STA (01:09)
[2020-02-19 01:43] LABS: Glucose,Whole Blood 118 mg/dL (75-99)
[2020-02-19 01:47] LABS: Basophils # (A) 0.1 k/uL (0-0.2); Basophils % (A) 1 %; Eosinophils # (A) 0.3 k/uL (0-0.7); Eosinophils % (A) 3 %; HCT 42.4 % (34.0-46.0); HGB 14.1 gm/dL (11.4-16.0); Lymphocytes # (A) 2.2 k/uL (1.0-4.8); Lymphocytes % (A) 22 %; MCH 30.6 pg (25.0-35.0); MCHC 33.2 g/dL (31.0-37.0); Mean Platelet Volume 7.1; Monocytes # (A) 0.4 k/uL (0-1.0); Monocytes % (A) 4 %; Neutrophils % (A) 70 %; Platelet Count 312 k/uL (150-450); RBC 4.59 m/uL (3.80-5.40); RDW 12.4 % (11.5-15.5); WBC 10.1 k/uL (3.8-10.6)
[2020-02-19 01:53] LABS: MCV 92.4 fL (80.0-100.0)
[2020-02-19 01:56] LABS: ALT 13 U/L (4-34); AST 26 U/L (14-36); African American GFR (CKD) >90 (>60 ml/min/1.73 sqM); Albumin 4.8 g/dL (3.5-5.0); Alkaline Phosphatase 80 U/L (38-126); Amylase 73 U/L (30-110); Anion Gap 10 mmol/L; Blood Urea Nitrogen 12 mg/dL (7-17); Calcium 10.3 mg/dL (8.4-10.2); Carbon Dioxide 24 mmol/L (22-30); Chloride 106 mmol/L (98-107); Glucose 109 mg/dL (74-99); Magnesium 2.1 mg/dL (1.6-2.3); Non-African American GFR(CKD) 79 (>60 ml/min/1.73 sqM); Potassium 3.8 mmol/L (3.5-5.1); Sodium 140 mmol/L (137-145); Total Bilirubin 0.6 mg/dL (0.2-1.3); Total Protein 8.2 g/dL (6.3-8.2)
[2020-02-19 01:59] LABS: Appearance,Urine Clear (Clear); Bilirubin,Urine Negative (Negative); Blood,Urine Negative (Negative); Color,Urine Yellow; Glucose,Urine (UA) Negative (Negative); Ketones,Urine Negative (Negative); Leukocyte Esterase,Urine Negative (Negative); Nitrite,Urine Negative (Negative); Protein,Urine Negative (Negative); Specific Gravity,Urine 1.018 (1.001-1.035); Urobilinogen,Urine <2.0 mg/dL (<2.0)
--- NOTE | 2020-02-19 02:44 | ED ---
General Adult HPI - General Chief complaint: Abdominal Pain Stated complaint: Chest pain, vomiting Time Seen by Provider: 02/19/20 00:53 Source: patient Mode of arrival: ambulatory Limitations: no limitations - History of Present Illness Initial comments: 34 year-old male patient presents to the emergency department for evaluation of multiple symptoms. Patient states that she has been having intermittent episodes where she will get urgent diarrhea and nausea. Patient states that this episode started earlier today. States that she has been having chest pain and some shortness of breath with this. She is also reporting lightheadedness. She believes she is feeling anxious related to her symptoms. States that she has been very nauseated and vomiting. She states she is unable to keep anything down. She does report history of appendectomy. Denies any hematochezia, melena, or hematemesis. Denies any fever or chills. She does take baby aspirin daily for history of PE during . Denies any leg or calf pain or swelling. Patient denies any recent rash, cough, back pain, numbness, tingling, hematuria, dysuria, urinary urgency, urinary frequency, headache, visual changes, or any other complaints. - Related Data Home Medications Medication Instructions Recorded Confirmed Levothyroxine Sodium [Synthroid] 88 mcg PO QAM 01/19/19 04/19/19 Nitrofurantoin Macrocrystal 50 mg PO ONCE PRN 04/19/19 04/19/19 [Macrodantin] Previous Rx's Medication Instructions Recorded Ibuprofen [Motrin] 600 mg PO Q6HR PRN #30 tab 04/21/19 Penicillin V Potassium [Pen Vee K] 500 mg PO QID #40 tablet 08/28/19 Dicyclomine [Bentyl] 20 mg PO QID #12 tablet 02/19/20 Ondansetron [Zofran ODT] 4 mg PO Q8HR PRN #20 tab 02/19/20 Allergies Allergy/AdvReac Type Severity Reaction Status Date / Time betamethasone Allergy pt reports Verified 02/19/20 00:48 [From [place]] "extreme dizziness about 3 days after",[email or web address] Allergy Rash/Hives Verified 02/19/20 00:48 latex Allergy Rash/Hives Verified 02/19/20 00:48 lorazepam [From Ativan] Allergy pt reports Verified 02/19/20 00:48 "extreme dizziness about 3 days after" Pertussis Vaccines Allergy Rash/Hives Verified 02/19/20 00:48 hydrocodone [From [place]] AdvReac Nausea & Verified 02/19/20 00:48 Vomiting Review of Systems ROS Statement: Those systems with pertinent positive or pertinent negative responses have been documented in the HPI. ROS Other: All systems not noted in ROS Statement are negative. Past Medical History Past Medical History: Pulmonary Embolus (PE), Thyroid Disorder Additional Past Medical History / Comment(s): pilonidal cyst, uterine polyps History of Any Multi-Drug Resistant Organisms: None Reported Past Surgical History: Appendectomy, Breast Surgery, Hernia Repair, Orthopedic Surgery Additional Past Surgical History / Comment(s): cyst drained, falopian tubes removed, left shoulder surgery. Past Anesthesia/Blood Transfusion Reactions: Postoperative Nausea & Vomiting (PONV) Past Psychological History: No Psychological Hx Reported Smoking Status: Never smoker Past Alcohol Use History: None Reported Past Drug Use History: None Reported - Past Family History Mother Family Medical History: Deep Vein Thrombosis (DVT) General Exam Limitations: no limitations General appearance: alert, in no apparent distress, other (This is a well-de veloped, well-nourished adult female patient in no acute distress. Vital signs upon presentation are temperature 98.1F, pulse 89, respirations 16, blood pressure 115/79, pulse ox 100% on room air.) Eye exam: Present: normal appearance, PERRL, EOMI. Absent: scleral icterus, conjunctival injection, periorbital swelling ENT exam: Present: normal exam, normal oropharynx, mucous membranes moist Respiratory exam: Present: normal lung sounds bilaterally. Absent: respiratory distress, wheezes, rales, rhonchi, stridor Cardiovascular Exam: Present: regular rate, normal rhythm, normal heart sounds. Absent: systolic murmur, diastolic murmur, rubs, gallop, clicks GI/Abdominal exam: Present: soft, tenderness (Midepigastric), normal bowel sounds. Absent: distended, guarding, rebound, rigid Neurological exam: Present: alert, oriented X3, CN II-XII intact Psychiatric exam: Present: normal affect, normal mood Skin exam: Present: warm, dry, intact, normal color. Absent: rash Course Vital Signs 02/19/20 00:44 Temperature 98.1 F Pulse Rate 89 Respiratory 16 Rate Blood Pressure 115/79 O2 Sat by Pulse 100 Oximetry EKG Findings - EKG Comments: EKG Findings:: EKG obtained at 06 03 shows normal sinus rhythm with a ventricular rate of 78, ND interval 160, QRS duration 76, QT 374, QTC 426. No evidence of ST elevation or depression. Medical Decision Making - Medical Decision Making 34-year-old female patient presents to the emergency department today for evaluation of nausea, vomiting, diarrhea. She is also reporting chest discomfort and lightheadedness. Physical examination did reveal soft nontender abdomen. She is neurologically intact with no focal deficits. Afebrile with normal vital signs. Labs reviewed, there is an elevated TSH with a normal T4. EKG shows normal sinus rhythm. Patient was given IV fluids, Zofran. Upon reevaluation she still reports nausea and abdominal discomfort. She'll be given additional dose of Zofran and a dose of Bentyl. We did discuss all results, she is instructed to discuss her TSH level with her primary care physician. We'll give her prescription for outpatient ultrasound of the right upper quadrant abdomen. Patient has had similar episodes of symptoms in the past and has had full evaluations including CT of the abdomen and pelvis which were negative, that was in November. She will be discharged today for prescription for Zofran, Bentyl, and instructions to follow up with GI specialty for further evaluation. We did discuss possible dietary modifications for her to try in the meantime. Return parameters are discussed in detail. She verbalizes understanding and agrees with this plan. - Lab Data Result diagrams: 02/19/20 01:32 02/19/20 01:31 Lab Results 02/19/20 02/19/20 02/19/20 Range/Units 01:31 01:31 01:32 WBC 10.1 (3.8-10.6) k/uL RBC 4.59 (3.80-5.40) m/uL Hgb 14.1 (11.4-16.0) gm/dL Hct 42.4 (34.0-46.0) % MCV 92.4 D (80.0-100.0) fL MCH 30.6 (25.0-35.0) pg MCHC 33.2 (31.0-37.0) g/dL RDW 12.4 (11.5-15.5) % Plt Count 312 (150-450) k/uL Neutrophils % 70 % Lymphocytes % 22 % Monocytes % 4 % Eosinophils % 3 % Basophils % 1 % Neutrophils # 7.0 (1.3-7.7) k/uL Lymphocytes # 2.2 (1.0-4.8) k/uL Monocytes # 0.4 (0-1.0) k/uL Eosinophils # 0.3 (0-0.7) k/uL Basophils # 0.1 (0-0.2) k/uL Sodium 140 (137-145) mmol/L Potassium 3.8 (3.5-5.1) mmol/L Chloride 106 (98-107) mmol/L Carbon Dioxide 24 (22-30) mmol/L Anion Gap 10 mmol/L BUN 12 (7-17) mg/dL Creatinine 0.95 (0.52-1.04) mg/dL Est GFR (CKD-EPI)AfAm >90 (>60 ml/min/1.73 sqM) Est GFR (CKD-EPI)NonAf 79 (>60 ml/min/1.73 sqM) Glucose 109 H (74-99) mg/dL POC Glucose (mg/dL) (75-99) mg/dL POC Glu As[employer] Worker Helper ID Calcium 10.3 H (8.4-10.2) mg/dL Magnesium 2.1 (1.6-2.3) mg/dL Total Bilirubin 0.6 (0.2-1.3) mg/dL AST 26 (14-36) U/L ALT 13 (4-34) U/L Alkaline Phosphatase 80 (38-126) U/L Troponin I <0.012 (0.000-0.034) ng/mL Total Protein 8.2 (6.3-8.2) g/dL Albumin 4.8 (3.5-5.0) g/dL Amylase 73 (30-110) U/L Lipase 118 (23-300) U/L TSH 9.700 H (0.465-4.680) mIU/L Free T4 1.22 (0.78-2.19) ng/dL Urine Color Urine Appearance (Clear) Urine pH (5.0-8.0) Ur Specific [place] (1.001-1.035) Urine Protein (Negative) Urine Glucose (UA) (Negative) Urine Ketones (Negative) Urine Blood (Negative) Urine Nitrite (Negative) Urine Bilirubin (Negative) Urine Urobilinogen (<2.0) mg/dL Ur Leukocyte Esterase (Negative) 02/19/20 02/19/20 Range/Units 01:32 01:41 WBC (3.8-10.6) k/uL RBC (3.80-5.40) m/uL Hgb (11.4-16.0) gm/dL Hct (34.0-46.0) % MCV (80.0-100.0) fL MCH (25.0-35.0) pg MCHC (31.0-37.0) g/dL RDW (11.5-15.5) % Plt Count (150-450) k/uL Neutrophils % % Lymphocytes % % Monocytes % % Eosinophils % % Basophils % % Neutrophils # (1.3-7.7) k/uL Lymphocytes # (1.0-4.8) k/uL Monocytes # (0-1.0) k/uL Eosinophils # (0-0.7) k/uL Basophils # (0-0.2) k/uL Sodium (137-145) mmol/L Potassium (3.5-5.1) mmol/L Chloride (98-107) mmol/L Carbon Dioxide (22-30) mmol/L Anion Gap mmol/L BUN (7-17) mg/dL Creatinine (0.52-1.04) mg/dL Est GFR (CKD-EPI)AfAm (>60 ml/min/1.73 sqM) Est GFR (CKD-EPI)NonAf (>60 ml/min/1.73 sqM) Glucose (74-99) mg/dL POC Glucose (mg/dL) 118 H (75-99) mg/dL POC Glu As[employer] Worker Helper ID Mccormack, Pamela Calcium (8.4-10.2) mg/dL Magnesium (1.6-2.3) mg/dL Total Bilirubin (0.2-1.3) mg/dL AST (14-36) U/L ALT (4-34) U/L Alkaline Phosphatase (38-126) U/L Troponin I (0.000-0.034) ng/mL Total Protein (6.3-8.2) g/dL Albumin (3.5-5.0) g/dL Amylase (30-110) U/L Lipase (23-300) U/L TSH (0.465-4.680) mIU/L Free T4 (0.78-2.19) ng/dL Urine Color Yellow Urine Appearance Clear (Clear) Urine pH 6.0 (5.0-8.0) Ur Specific [place] 1.018 (1.001-1.035) Urine Protein Negative (Negative) Urine Glucose (UA) Negative (Negative) Urine Ketones Negative (Negative) Urine Blood Negative (Negative) Urine Nitrite Negative (Negative) Urine Bilirubin Negative (Negative) Urine Urobilinogen <2.0 (<2.0) mg/dL Ur Leukocyte Esterase Negative (Negative) Disposition Clinical Impression: Chest pain, Vomiting, Diarrhea Disposition: HOME SELF-CARE Condition: Good Instructions (If sedation given, give patient instructions): Chest Pain (ED), Acute Nausea and Vomiting (ED), Acute Diarrhea (ED) Additional Instructions: Take medications as directed. Follow up with the GI specialist for further evaluation as soon as possible. Have ultrasound of the gallbladder performed and follow up with your physician for results. Return to the emergency department for any new, worsening, or concerning symptoms. Prescriptions: Dicyclomine [Bentyl] 20 mg PO QID #12 tablet Ondansetron [Zofran ODT] 4 mg PO Q8HR PRN #20 tab PRN Reason: Nausea Is patient prescribed a controlled substance at d/c from ED?: No Referrals: Shant Wallace MD [Primary Care Provider] - 1-2 days Tyra Marinelli MD [STAFF PHYSICIAN] - 1-2 days Time of Disposition: 03:29
[2020-02-19 03:24] LABS: T4, Free (Free Thyroxine) 1.22 ng/dL (0.78-2.19)
[2020-02-19] MEDS ORDERED: DICYCLOMINE 20 MG TAB PO STA (03:26)
== END 2020-02-19 04:17 | disposition home or self-care (01) ==
LOC: EC 00:40
DX: R11.2 Nausea with vomiting, unspecified (principal); R19.7 Diarrhea, unspecified; R07.9 Chest pain, unspecified; R42 Dizziness and giddiness; E07.9 Disorder of thyroid, unspecified; Z79.890 Hormone replacement therapy; Z79.82 Long term (current) use of aspirin; Z88.5 Allergy status to narcotic agent; Z88.7 Allergy status to serum and vaccine; Z88.8 Allergy status to other drugs, medicaments and biological substances; Z91.040 Latex allergy status; Z91.048 Other nonmedicinal substance allergy status; Z20.828 Contact with and (suspected) exposure to other viral communicable diseases; Z90.49 Acquired absence of other specified parts of digestive tract; Z86.711 Personal history of pulmonary embolism
CPT/HCPCS: 36415; 93005; 84439; 80053; 84443; 82150; 83690; 83735; 84484; 85025; 81003; 99284; 96374; 96375; 96376; 96361; U0003; J2405

== ENCOUNTER → 2020-02-23 | Outpatient (CLI) | payer BC ==
--- NOTE | 2020-02-23 12:13 | US ---
EXAMINATION TYPE: US abdomen complete DATE OF EXAM: 02/23/2020 COMPARISON: CT December 14, 2019 CLINICAL HISTORY: R10.9 Unspecified abdominal pain, R11.10. Intermittent abdomen pain and N/V x 3 mon ths EXAM MEASUREMENTS: Liver Length: 14.1 cm Gallbladder Wall: 0.1 cm CBD: 0.4 cm Spleen: 10.0 cm Right Kidney: 9.5 x 3.7 x 4.2 cm Left Kidney: 9.1 x 4.6 x 4.1 cm Pancreas: wnl Liver: wnl Gallbladder: wnl Evidence for sonographic Portillo's sign: yes CBD: wnl Spleen: wnl Right Kidney: wnl Left Kidney: wnl Upper IVC: wnl Abd Aorta: wnl The visualized liver is homogenous. The intrahepatic portion of the IVC and visualized abdominal aor ta are within normal limits. There is no evidence of shadowing mobile cholelithiasis. Common bile d uct is unremarkable. The visualized portions of the pancreas are homogenous. The spleen is unremark able. Kidneys are symmetric and free of hydronephrosis. No renal lesions are seen. IMPRESSION: Unremarkable study.
== END | disposition home or self-care (01) ==
LOC: RADUSWWP 09:29
PROVIDERS: ATTEND Emergency Medicine
DX: R10.84 Generalized abdominal pain (principal)
CPT/HCPCS: 76700

== ENCOUNTER 2020-04-25 23:38 | Emergency (ER) | payer BC ==
[2020-04-25 23:49] VITALS: TEMP 98.1
--- NOTE | 2020-04-25 23:59 | ED ---
Recheck HPI - General Chief Complaint: Recheck/Abnormal Lab/Rx Stated Complaint: Possible Med Reaction Time Seen by Provider: 04/25/20 23:51 Source: patient Mode of arrival: ambulatory Limitations: no limitations - History of Present Illness Initial Comments: Patient is a 35-year-old female with history of exact and depression presenting to emergency department with multiple chief complaints. Patient states she developed increased anxiety as of lately and went to her primary care physician who started her on Zoloft. Stay she took the first dose about 3 hours prior to arrival. Patient states that she took the medication, she developed dizziness where the whole room is spinning around her. She does report nausea but no vomiting. States the dizziness is mostly resolved now. She also reports episodes of visual hallucinations where she sees "corsets and moving curtains". She states this was for a short period of time and does not have any at the moment. She denies any auditory hallucinations. She also reports some midsternal chest pressure but states this feels typical for her due to anxiety. States that she is to take Xanax for her anxiety but does not have anymore. Denies use of any other SSRIs, tricyclic antidepressants or monoxidase inhibitors. She is denying any homicidal, suicidal thoughts or ideations. - Related Data Home Medications Medication Instructions Recorded Confirmed Levothyroxine Sodium [Synthroid] 88 mcg PO QAM 01/19/19 04/19/19 Nitrofurantoin Macrocrystal 50 mg PO ONCE PRN 04/19/19 04/19/19 [Macrodantin] Previous Rx's Medication Instructions Recorded Ibuprofen [Motrin] 600 mg PO Q6HR PRN #30 tab 04/21/19 Penicillin V Potassium [Pen Vee K] 500 mg PO QID #40 tablet 08/28/19 Dicyclomine [Bentyl] 20 mg PO QID #12 tablet 02/19/20 Ondansetron [Zofran ODT] 4 mg PO Q8HR PRN #20 tab 02/19/20 Allergies Allergy/AdvReac Type Severity Reaction Status Date / Time betamethasone Allergy pt reports Verified 04/25/20 23:49 [From [place]] "extreme dizziness about 3 days after",[email or web address] Allergy Rash/Hives Verified 04/25/20 23:49 latex Allergy Rash/Hives Verified 04/25/20 23:49 lorazepam [From Ativan] Allergy pt reports Verified 04/25/20 23:49 "extreme dizziness about 3 days after" Pertussis Vaccines Allergy Rash/Hives Verified 04/25/20 23:49 hydrocodone [From [place]] AdvReac Nausea & Verified 04/25/20 23:49 Vomiting Review of Systems ROS Statement: Those systems with pertinent positive or pertinent negative responses have been documented in the HPI. ROS Other: All systems not noted in ROS Statement are negative. Past Medical History Past Medical History: Pulmonary Embolus (PE), Thyroid Disorder Additional Past Medical History / Comment(s): pilonidal cyst, uterine polyps History of Any Multi-Drug Resistant Organisms: None Reported Past Surgical History: Appendectomy, Breast Surgery, Hernia Repair, Orthopedic Surgery Additional Past Surgical History / Comment(s): cyst drained, falopian tubes removed, left shoulder surgery. Past Anesthesia/Blood Transfusion Reactions: Postoperative Nausea & Vomiting (PONV) Past Psychological History: Anxiety Smoking Status: Never smoker Past Alcohol Use History: None Reported Past Drug Use History: None Reported - Past Family History Mother Family Medical History: Deep Vein Thrombosis (DVT) General Exam Limitations: no limitations General appearance: alert, in no apparent distress, anxious Head exam: Present: atraumatic, normocephalic, normal inspection Eye exam: Present: normal appearance, PERRL, EOMI. Absent: conjunctival injection, nystagmus Pupils: Present: normal accommodation ENT exam: Present: normal exam, normal oropharynx, mucous membranes moist, TM's normal bilaterally, normal external ear exam Neck exam: Present: normal inspection, full ROM. Absent: tenderness Respiratory exam: Present: normal lung sounds bilaterally. Absent: respiratory distress, wheezes Cardiovascular Exam: Present: regular rate, normal rhythm, normal heart sounds. Absent: systolic murmur, diastolic murmur Extremities exam: Present: normal inspection, full ROM, normal capillary refill. Absent: tenderness, pedal edema, joint swelling, calf tenderness Back exam: Present: normal inspection, full ROM. Absent: tenderness, CVA tenderness (R), CVA tenderness (L) Neurological exam: Present: alert, oriented X3 Psychiatric exam: Present: normal affect, anxious. Absent: depressed, agitated Skin exam: Present: warm, dry, intact, normal color Course Vital Signs 04/25/20 04/26/20 23:44 00:05 Temperature 98.1 F Pulse Rate 81 70 Respiratory 18 16 Rate Blood Pressure 123/75 114/65 O2 Sat by Pulse 99 98 Oximetry Medical Decision Making - Medical Decision Making 35-year-old female presenting to the emergency department with multiple chief complaints. Patient believes because she took the Zoloft about 3 hours, she developed multiple symptoms. I gave the patient Antivert to help with her dizziness. She is otherwise well-appearing but is slightly anxious. Patient was offered psychiatric evaluation, she declined. She did not have any visual or auditory hallucinations at this time. Advised the patient to stop taking the Zoloft. She is not on any other medications that would suggest serotonin syndrome. EKG showing sinus rhythm. Patient was observed in the emergency depa rtment. On reevaluation, patient reports improvement of symptoms. She will be discharged and advised to follow with her primary care physician. Strict return parameters were thoroughly discussed the patient was understanding and agreeable. Case discussed with physician. Disposition Clinical Impression: Acute anxiety Disposition: HOME SELF-CARE Condition: Stable Instructions (If sedation given, give patient instructions): Anxiety (ED) Additional Instructions: follow-up with a psychiatrist or counselor. Return to emergency department if symptoms worsen. Discontinue taking the Zoloft. Is patient prescribed a controlled substance at d/c from ED?: No Referrals: Shant Wallace MD [Primary Care Provider] - 1-2 days Time of Disposition: 01:09
[2020-04-26 00:08] VITALS: BP 114/65; PULSE 70; RESP 16
[2020-04-26] MEDS ORDERED: MECLIZINE 12.5 MG TAB PO STA (00:52)
== END 2020-04-26 01:37 | disposition home or self-care (01) ==
LOC: EC 23:38
DX: F41.9 Anxiety disorder, unspecified (principal); R42 Dizziness and giddiness; Z53.9 Procedure and treatment not carried out, unspecified reason; Z88.5 Allergy status to narcotic agent; Z88.7 Allergy status to serum and vaccine; Z91.040 Latex allergy status; Z79.890 Hormone replacement therapy; Z79.899 Other long term (current) drug therapy
CPT/HCPCS: 93005; 99283

== ENCOUNTER 2020-05-22 07:50 | Day surgery (SDC) | payer BC ==
[2020-05-15 11:57] VITALS: BMI 24.5
[~2020-05-22 07:50] MED LIST changes: -DEXAMETHASONE SOD PHOSPHATE 10 MG/ML 1 ML VIAL IV ONE; -HYDROmorphone 0.5 MG/0.5 ML SYRINGE IVP PRN; +LIDOCAINE 1% (10MG/ML) FOR IV START INTRADERMA PRN; -LIDOCAINE 1% 20 ML VIAL (10MG/ML) FOR IV START INTRADERMA PRN; -MIDAZOLAM 2 MG/2 ML VIAL IV PRN; -ONDANSETRON 4 MG/2 ML VIAL IVP ONE; -Pre Op ABX Message 1 EACH MISC MISCELLANE ONE; -SCOPOLAMINE 1.5MG/72HR PATCH TRANSDERM ONE
[2020-05-22 08:29] VITALS: TEMP 97.5
[2020-05-22] MEDS ORDERED: ONDANSETRON 4 MG/2 ML VIAL ONE (08:31)
[2020-05-22] MEDS ORDERED: PROPOFOL 10 MG/ML 20 ML VIAL IV ONE (08:52)
[2020-05-22] MEDS ORDERED: LIDOCAINE 1% INJ 10MG/ML (20 ML MDV) ONE (08:52)
--- NOTE | 2020-05-22 09:01 | P.PCN ---
Date of Procedure: 05/22/20 Procedure(s) Performed: BRIEF HISTORY: Patient is a 35-year-old, pleasant, female scheduled for an upper endoscopy as part of evaluation long-standing history of epigastric pain and heartburn of several months duration. She was recently started on Protonix 40 mg daily and symptoms are gradually improving. She also gets intermittent diarrhea during the symptoms.. PROCEDURE PERFORMED: Esophagogastroduodenoscopy with biopsy PREOPERATIVE DIAGNOSIS: Chronic epigastric pain and intermittent diarrhea. IV sedation per anesthesia. PROCEDURE: After informed consent was obtained, the patient was brought into the endoscopy unit. IV sedation was administered by Anesthesia under continuous monitoring. Initially the Olympus GIF-140 video endoscope was inserted into the mouth. Esophagus intubated without any difficulty. It was gradually advanced into the stomach and duodenum and carefully examined. The bulb and the second part of the duodenum appeared normal. Biopsies were done from the duodenum to rule out celiac disease. The scope at this time was withdrawn to the stomach, adequately insufflated with air, and upon careful examination, mucosa of the antrum, had mild patchy areas of erythema noted which was biopsied. The body, cardia and the fundus appeared normal. The scope was then withdrawn into the esophagus. The GE junction was located at 39 cm from the incisors. The esophagus appeared normal. There were no erosions or ulcerations seen , biopsies were done from the distal esophagus and the patient tolerated the procedure well. IMPRESSION: 1. Mild antral gastritis. 2. Normal-appearing esophagus with no evidence of esophagitis. RECOMMENDATIONS: The findings of this examination were discussed with the patient as well as her family. She was advised to follow with the biopsy results. She will continue with Protonix 40 mg daily and follow antireflux measures. She will be seen in office in 2 weeks..
[2020-05-22 09:05] VITALS: RESP 16
[2020-05-22 09:20] VITALS: BP 101/68; PULSE 73
== END 2020-05-22 10:18 | disposition home or self-care (01) ==
LOC: ORWHC2ENDO 07:50
PROVIDERS: ATTEND Internal Medicine Gastroenterology
DX: K29.50 Unspecified chronic gastritis without bleeding (principal); K21.00 Gastro-esophageal reflux disease with esophagitis, without bleeding; F41.9 Anxiety disorder, unspecified; E07.9 Disorder of thyroid, unspecified; Z79.890 Hormone replacement therapy; Z79.899 Other long term (current) drug therapy; Z87.891 Personal history of nicotine dependence; Z88.8 Allergy status to other drugs, medicaments and biological substances; Z91.040 Latex allergy status
CPT/HCPCS: 81025; 88305; 43239; J2405; J2001; J2704

== ENCOUNTER 2020-06-06 22:05 | Emergency (ER) | payer BC ==
[2020-06-06 22:12] VITALS: TEMP 98.6
--- NOTE | 2020-06-06 22:28 | ED ---
Chest Pain HPI - General Chief Complaint: Chest Pain Stated Complaint: SOB/Chest Pain Time Seen by Provider: 06/06/20 22:14 Source: patient Mode of arrival: wheelchair Limitations: no limitations - History of Present Illness Initial Comments: This patient is a 35-year-old woman who presents to be alive for left-sided chest pain. She indicates the area at the costal margin on the left side. She states that she had initially thought this was related to her ribs, but she became concerned as she does have history of previous blood clot. She states th at this occurred a few years ago, she was at the time and taking progesterone. The patient states she has not had clots since that time and she does take aspirin as a precaution. She has not had any other chest symptoms. No fever or chills, cough, hemoptysis, dyspnea, palpitations, nausea or vomiting, or syncope. No leg pain or swelling. MD Complaint: chest pain Onset/Timin -: days(s) Onset: during rest Pain Location: left chest Pain Radiation: none Severity: mild Quality: sharp Consistency: constant Improves With: nothing Worsens With: nothing Treatments Prior to Arrival: none - Related Data On Oral Contraceptives: No Home Medications Medication Instructions Recorded Confirmed Levothyroxine Sodium [Synthroid] 88 mcg PO QAM 01/19/19 06/06/20 Ascorbic Acid [Vitamin C] 1,000 mg PO DAILY 05/15/20 06/06/20 Aspirin [Adult Low Dose Aspirin EC] 81 mg PO DAILY 05/15/20 06/06/20 Multivitamins, Thera [Multivitamin 1 tab PO DAILY 05/15/20 06/06/20 (formulary)] Pantoprazole Sodium [Protonix] 40 mg PO DAILY 05/15/20 06/06/20 Cbd Drops (Unknown Strength) 1 drop PO DAILY@1700 06/06/20 06/06/20 Nitrofurantoin Macrocrystal 50 mg PO DAILY PRN 06/06/20 06/06/20 [Macrodantin] Allergies Allergy/AdvReac Type Severity Reaction Status Date / Time betamethasone Allergy pt reports Verified 06/06/20 23:19 [From Celestone] "extreme dizziness about 3 days after",[email or web address] Allergy Rash/Hives Verified 06/06/20 23:19 latex Allergy Rash/Hives Verified 06/06/20 23:19 lorazepam [From Ativan] Allergy pt reports Verified 06/06/20 23:19 "extreme dizziness about 3 days after" Pertussis Vaccines Allergy Rash/Hives Verified 06/06/20 23:19 hydrocodone [From [place]] AdvReac Nausea & Verified 06/06/20 23:19 Vomiting sertraline [From Zoloft] AdvReac DIZZINESS Verified 06/06/20 23:19 AND HALLUCINATIONS Review of Systems ROS Statement: Those systems with pertinent positive or pertinent negative responses have been documented in the HPI. ROS Other: All systems not noted in ROS Statement are negative. Constitutional: Denies: fever, chills Respiratory: Denies: cough, dyspnea Cardiovascular: Reports: chest pain. Denies: palpitations, orthopnea, edema, s yncope Gastrointestinal: Denies: abdominal pain, nausea, vomiting Genitourinary: Denies: dysuria, hematuria Musculoskeletal: Denies: back pain Skin: Denies: rash Neurological: Denies: headache, weakness, numbness EKG Findings - EKG Results: EKG: interpreted by LUIS, sinus rhythm (94 bpm), normal axis, normal QRS, normal ST/T Past Medical History Past Medical History: Pulmonary Embolus (PE), Thyroid Disorder Additional Past Medical History / Comment(s): pilonidal cyst, uterine polyps History of Any Multi-Drug Resistant Organisms: None Reported Past Surgical History: Appendectomy, Breast Surgery, Hernia Repair, Orthopedic Surgery Additional Past Surgical History / Comment(s): cyst drained, falopian tubes removed, left shoulder surgery. Past Anesthesia/Blood Transfusion Reactions: Postoperative Nausea & Vomiting (PONV) Past Psychological History: Anxiety Smoking Status: Never smoker Past Alcohol Use History: None Reported Past Drug Use History: None Reported - Past Family History Mother Family Medical History: Deep Vein Thrombosis (DVT) General Exam Limitations: no limitations General appearance: alert, in no apparent distress Head exam: Present: atraumatic, normocephalic Eye exam: Present: normal appearance. Absent: scleral icterus, conjunctival injection ENT exam: Present: normal oropharynx Neck exam: Present: normal inspection Respiratory exam: Present: normal lung sounds bilaterally, chest wall tenderness. Absent: respiratory distress, wheezes, rales, rhonchi, stridor, accessory muscle use Cardiovascular Exam: Present: regular rate, normal rhythm, normal heart sounds. Absent: systolic murmur, diastolic murmur, rubs, gallop GI/Abdominal exam: Present: soft. Absent: distended, tenderness, guarding, rebound, rigid, mass Extremities exam: Present: normal inspection, normal capillary refill. Absent: pedal edema, calf tenderness Back exam: Present: normal inspection. Absent: CVA tenderness (R), CVA tenderness (L) Neurological exam: Present: alert Skin exam: Present: warm, dry, intact, normal color. Absent: rash Course Vital Signs 06/06/20 22:09 Temperature 98.6 F Pulse Rate 94 Respiratory 18 Rate Blood Pressure 119/80 O2 Sat by Pulse 100 Oximetry Disposition Clinical Impression: Chest wall discomfort Disposition: HOME SELF-CARE Condition: Good Instructions (If sedation given, give patient instructions): Chest Pain (ED) Is patient prescribed a controlled substance at d/c from ED?: No Referrals: Shant Wallace MD [Primary Care Provider] - 1-2 days
[2020-06-06 22:55] LABS: Basophils # (A) 0.1 k/uL (0-0.2); Basophils % (A) 1 %; Eosinophils # (A) 0.3 k/uL (0-0.7); Eosinophils % (A) 3 %; HCT 41.9 % (34.0-46.0); HGB 14.6 gm/dL (11.4-16.0); Lymphocytes % (A) 35 %; MCH 31.1 pg (25.0-35.0); MCHC 34.7 g/dL (31.0-37.0); MCV 89.7 fL (80.0-100.0); Mean Platelet Volume 6.9; Monocytes # (A) 0.6 k/uL (0-1.0); Monocytes % (A) 6 %; Neutrophils # (A) 6.3 k/uL (1.3-7.7); Neutrophils % (A) 55 %; Platelet Count 282 k/uL (150-450); RBC 4.68 m/uL (3.80-5.40); RDW 12.3 % (11.5-15.5); WBC 11.5 k/uL (3.8-10.6)
[2020-06-06 23:03] LABS: ALT 21 U/L (4-34); AST 26 U/L (14-36); African American GFR (CKD) >90 (>60 ml/min/1.73 sqM); Albumin 5.2 g/dL (3.5-5.0); Alkaline Phosphatase 87 U/L (38-126); Anion Gap 11 mmol/L; Blood Urea Nitrogen 9 mg/dL (7-17); Calcium 10.5 mg/dL (8.4-10.2); Carbon Dioxide 25 mmol/L (22-30); Chloride 106 mmol/L (98-107); Glucose 102 mg/dL (74-99); Magnesium 2.3 mg/dL (1.6-2.3); Non-African American GFR(CKD) >90 (>60 ml/min/1.73 sqM); Potassium 3.9 mmol/L (3.5-5.1); Sodium 142 mmol/L (137-145); Total Bilirubin 0.8 mg/dL (0.2-1.3); Total Protein 9.4 g/dL (6.3-8.2)
--- NOTE | 2020-06-06 23:04 | XR ---
EXAMINATION TYPE: XR chest 2V DATE OF EXAM: 06/06/2020 COMPARISON: 12/14/2019 HISTORY: Chest pain TECHNIQUE: FINDINGS: Heart and mediastinum are normal. Lungs are clear. Diaphragm is normal. Bony thorax is inta ct. There are chest leads. IMPRESSION: Normal chest. No change.
[2020-06-06 23:14] LABS: D-Dimer 0.59 mg/L FEU (<0.60); INR 0.9 (<1.2)
[2020-06-06 23:23] LABS: Partial Thromboplastin Time 21.7 sec (22.0-30.0)
[2020-06-07 00:34] VITALS: BP 109/70; PULSE 90; RESP 16
== END 2020-06-07 00:44 | disposition home or self-care (01) ==
LOC: EC 22:05
DX: R07.89 Other chest pain (principal); E07.9 Disorder of thyroid, unspecified; F41.9 Anxiety disorder, unspecified; Z20.822 Contact with and (suspected) exposure to COVID-19; Z79.899 Other long term (current) drug therapy; Z79.890 Hormone replacement therapy; Z79.82 Long term (current) use of aspirin; Z91.048 Other nonmedicinal substance allergy status; Z88.8 Allergy status to other drugs, medicaments and biological substances; Z91.040 Latex allergy status; Z88.5 Allergy status to narcotic agent; Z88.7 Allergy status to serum and vaccine; Z86.711 Personal history of pulmonary embolism
CPT/HCPCS: 36415; 93005; 85379; 80053; 83735; 84484; 85025; 85610; 85730; 71046; 99285; U0003; U0005

== ENCOUNTER → 2020-07-30 | Outpatient (CLI) | payer BC ==
--- NOTE | 2020-07-30 16:05 | US ---
EXAMINATION TYPE: US thyroid st tissue head/neck DATE OF EXAM: 07/30/2020 COMPARISON: NONE CLINICAL HISTORY: E04.1 thyroid nodule. previous nodules seen 5yrs ago at other facility, on Synthyro id GLAND SIZE: Right Lobe: 3.8 x 1.1 x 1.5cm Overall Parenchyma: heterogenous Left Lobe: 3.1 x 0.8 x 1.2 cm Overall Parenchyma: heterogeneous Isthmus Thickness: 0.1 cm NODULES RIGHT: # of nodules measured on right: 0 LEFT: # of nodules measured on left: 0 ISTHMUS: # of nodules measured in the isthmus: 0 Bilateral neck scanned, no evidence of lymphadenopathy. Thyroid lobes are slightly heterogenous. No discrete nodules are evident. IMPRESSION: 1. Normal thyroid
== END ==
LOC: RADUSWWP 08:59
PROVIDERS: ATTEND Internal Medicine
DX: E04.1 Nontoxic single thyroid nodule (principal)
CPT/HCPCS: 76536

== ENCOUNTER → 2020-09-17 | Outpatient (CLI) | payer BC ==
[2020-09-17 12:19] LABS: Basophils # (A) 0.1 k/uL (0-0.2); Basophils % (A) 1 %; Eosinophils # (A) 0.2 k/uL (0-0.7); Eosinophils % (A) 3 %; HCT 41.8 % (34.0-46.0); HGB 14.2 gm/dL (11.4-16.0); Lymphocytes # (A) 2.2 k/uL (1.0-4.8); Lymphocytes % (A) 34 %; MCH 31.4 pg (25.0-35.0); MCHC 33.9 g/dL (31.0-37.0); MCV 92.7 fL (80.0-100.0); Mean Platelet Volume 6.9; Monocytes # (A) 0.4 k/uL (0-1.0); Monocytes % (A) 6 %; Neutrophils # (A) 3.5 k/uL (1.3-7.7); Neutrophils % (A) 54 %; Platelet Count 254 k/uL (150-450); RBC 4.51 m/uL (3.80-5.40); WBC 6.5 k/uL (3.8-10.6)
== END | disposition home or self-care (01) ==
LOC: LABPAT 10:59
PROVIDERS: ATTEND Obstetrics & Gynecology
DX: Z01.812 Encounter for preprocedural laboratory examination (principal)
CPT/HCPCS: 36415; 85025

== ENCOUNTER 2020-09-24 06:16 | Day surgery (SDC) | payer BC ==
[2020-08-16 14:38] VITALS: BMI 23.8
--- NOTE | 2020-08-20 17:06 | P.HPOB ---
History of Present Illness H&P Date: 08/20/20 Chief Complaint: Dysfunctional uterine bleeding/menorrhagia Gale is a 35-year-old female with heavy vaginal bleeding is irregular. This is been going on for number of months and she is passing very large baseball size clots she has significant pain and discomfort with this and she is unable to function well while she's having her period. She is therefore scheduled for a D&C with hysteroscopy and NovaSure ablation. Risks/benefits/alternatives to this procedure were discussed with the patient in detail and all questions were answered for her prior to proceeding to the operating room. Past Medical History Past Medical History: GERD/Reflux, Pulmonary Embolus (PE), Thyroid Disorder Additional Past Medical History / Comment(s): uterine polyps, migraines, intersticial cystitis, hx palpitations History of Any Multi-Drug Resistant Organisms: None Reported Past Surgical History: Appendectomy, Breast Surgery, Hernia Repair, Orthopedic Surgery Additional Past Surgical History / Comment(s): pilonidal cyst drained(hemorrhaged post op), geoff salpingectomy, left shoulder arthroscopy. EGD Past Anesthesia/Blood Transfusion Reactions: Family History of Problems w/ Anesthesia, Motion Sickness, Postoperative Nausea & Vomiting (PONV) Additional Past Anesthesia/Blood Transfusion Reaction / Comment(s): mother has "issues not suire what" Smoking Status: Never smoker - Past Family History Mother Family Medical History: Deep Vein Thrombosis (DVT) Medications and Allergies Home Medications Medication Instructions Recorded Confirmed Type Levothyroxine Sodium [Synthroid] 88 mcg PO QAM 01/19/19 08/16/20 History Aspirin [Adult Low Dose Aspirin EC] 81 mg PO DAILY 05/15/20 08/16/20 History Multivitamins, Thera [Multivitamin 1 tab PO DAILY 05/15/20 08/16/20 History (formulary)] Pantoprazole Sodium [Protonix] 40 mg PO DAILY 05/15/20 08/16/20 History Nitrofurantoin Macrocrystal 50 mg PO DAILY PRN 06/06/20 08/16/20 History [Macrodantin] Ascorbic Acid [Vitamin C] 500 mg PO DAILY 08/16/20 08/16/20 History Allergies Allergy/AdvReac Type Severity Reaction Status Date / Time betamethasone Allergy pt reports Verified 08/16/20 14:23 [From [place]] "extreme dizziness about 3 days after",[email or web address] Allergy Rash/Hives Verified 08/16/20 14:23 latex Allergy Rash/Hives Verified 08/16/20 14:23 lorazepam [From Ativan] Allergy pt reports Verified 08/16/20 14:23 "extreme dizziness about 3 days after" Pertussis Vaccines Allergy Rash/Hives Verified 08/16/20 14:23 hydrocodone [From [place]] AdvReac Nausea & Verified 08/16/20 14:23 Vomiting sertraline [From Zoloft] AdvReac DIZZINESS Verified 08/16/20 14:23 AND HALLUCINATIONS Exam Osteopathic Statement: *. No significant issues noted on an osteopathic structural exam other than those noted in the History and Physical/Consult. - OBG Physical Exam Breast: both: normal (no masses) Abdomen: bowel sounds normal, no diffuse tenderness, no bruit present, no g uarding noted, no hepatomegaly, no splenomegaly, no mass Vulva: both: normal Vagina: normal moisture, no discharge Cervix: no lesion, no discharge Uterus: normal size, normal contour Adnexa: both: normal Anus/Rectum: normal perianal skin, no rectal mass, no hemorrhoids, heme negative
--- NOTE | 2020-09-18 18:32 | P.HPOB ---
History of Present Illness H&P Date: 09/18/20 Chief Complaint: Menorrhagia Gale is a 35-year-old female with heavy vaginal bleeding. She reports that she has cycles every 5 weeks but spots every once in a while and then bleeds heavy for 2 days she's having large clots and bleeding during her cycle patient states sometimes feels achy and weak and her psych as her cycles begin she's had an ultrasound as well. Due to current symptomatology and with history of polyp she is scheduled for a D&C with hysteroscopy and NovaSure at her request to stop her bleeding. We did discuss other options including IUDs/hysterectomy/or more conservative approaches like medications but she declines these. Risks/benefits/alternatives were again reviewed with the patient in detail and all questions were answered for the patient prior to proceeding to the operating room these risks did include bleeding and infection as well as damage to bladder or bowel thermal injuries potential pain requiring other surgery in the future. Past Medical History Past Medical History: GERD/Reflux, Pulmonary Embolus (PE), Thyroid Disorder Additional Past Medical History / Comment(s): uterine polyps, migraines, intersticial cystitis, hx palpitations, PE 2013 History of Any Multi-Drug Resistant Organisms: None Reported Past Surgical History: Appendectomy, Breast Surgery, Hernia Repair, Orthopedic Surgery Additional Past Surgical History / Comment(s): pilonidal cyst drained(hemorrhaged post op), geoff salpingectomy, left shoulder arthroscopy. EGD, uterine polyps removed x 2 (D&C) Past Anesthesia/Blood Transfusion Reactions: Family History of Problems w/ Anesthesia, Motion Sickness, Postoperative Nausea & Vomiting (PONV) Additional Past Anesthesia/Blood Transfusion Reaction / Comment(s): mother - "does not like to wake up" Smoking Status: Former smoker - Past Family History Mother Family Medical History: Deep Vein Thrombosis (DVT) Medications and Allergies Home Medications Medication Instructions Recorded Confirmed Type Levothyroxine Sodium [Synthroid] 88 mcg PO QAM 01/19/19 09/17/20 History Aspirin [Adult Low Dose Aspirin EC] 81 mg PO DAILY 05/15/20 09/17/20 History Multivitamins, Thera [Multivitamin 1 tab PO DAILY 05/15/20 09/17/20 History (formulary)] Pantoprazole Sodium [Protonix] 40 mg PO DAILY 05/15/20 09/17/20 History Nitrofurantoin Macrocrystal 50 mg PO DAILY PRN 06/06/20 09/17/20 History [Macrodantin] Ascorbic Acid [Vitamin C] 500 mg PO HS 08/16/20 09/17/20 History Loratadine 10 mg PO DAILY 09/17/20 09/17/20 History Allergies Allergy/AdvReac Type Severity Reaction Status Date / Time betamethasone Allergy pt reports Verified 09/17/20 12:57 [From [place]] "extreme dizziness about 3 days after",[email or web address] Allergy Rash/Hives Verified 09/17/20 12:57 latex Allergy Rash/Hives Verified 09/17/20 12:57 lorazepam [From Ativan] Allergy pt reports Verified 09/17/20 12:57 "extreme dizziness about 3 days after" Pertussis Vaccines Allergy Rash/Hives Verified 09/17/20 12:57 hydrocodone [From [place]] AdvReac Nausea & Verified 09/17/20 12:57 Vomiting sertraline [From Zoloft] AdvReac DIZZINESS Verified 09/17/20 12:57 AND HALLUCINATIONS Exam Osteopathic Statement: *. No significant issues noted on an osteopathic structural exam other than those noted in the History and Physical/Consult. - OBG Physical Exam Breast: both: normal (no masses) Abdomen: bowel sounds normal, no diffuse tenderness, no bruit present, no guarding noted, no hepatomegaly, no splenomegaly, no mass Vulva: both: normal Vagina: normal moisture, no discharge Cervix: no lesion, no discharge Uterus: normal size, normal contour Adnexa: both: normal Anus/Rectum: normal perianal skin, no rectal mass, no hemorrhoids, heme negative
[~2020-09-24 06:16] MED LIST changes: -LIDOCAINE 1% (10MG/ML) FOR IV START INTRADERMA PRN; +Pre Op ABX Message 1 EACH MISC MISCELLANE ONE
[2020-09-24 06:49] VITALS: RESP 16
[2020-09-24] MEDS ORDERED: LIDOCAINE 1% (10MG/ML) FOR IV START INTRADERMA ONE (07:02)
[2020-09-24] MEDS: ONDANSETRON 4 MG/2 ML VIAL IVP ONE ×2 (07:09→08:46)
[2020-09-24] MEDS ORDERED: SCOPOLAMINE 1.5MG/72HR PATCH TRANSDERM ONE (07:10)
[2020-09-24] MEDS ORDERED: DEXAMETHASONE SOD PHOSPHATE 4 MG/ML 1 ML VIAL IV ONE (07:10)
[2020-09-24] MEDS ORDERED: KETOROLAC 15 MG/ML 1 ML VIAL ONE (07:33)
[2020-09-24] MEDS ORDERED: PROPOFOL 10 MG/ML 20 ML VIAL IV ONE (07:33)
[2020-09-24] MEDS ORDERED: MIDAZOLAM 2 MG/2 ML VIAL ONE (07:33)
[2020-09-24] MEDS ORDERED: fentaNYL (PF) 50 MCG/ML 2 ML AMP ONE (07:33)
[2020-09-24] MEDS ORDERED: LIDOCAINE 1% INJ 10MG/ML (20 ML MDV) ONE (07:33)
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
[2020-09-24 08:21] VITALS: TEMP 97
[2020-09-24] MEDS: fentaNYL (PF) 50 MCG/ML 2 ML AMP IV PRN ×2 (08:37→08:43)
[2020-09-24] MEDS ORDERED: LACTATED RINGERS 1,000 ML IV ONE (08:46)
[2020-09-24 09:41] VITALS: BP 100/69; PULSE 84
== END 2020-09-24 10:15 | disposition home or self-care (01) ==
LOC: OR 06:16
PROVIDERS: ATTEND Obstetrics & Gynecology
DX: N93.8 Other specified abnormal uterine and vaginal bleeding (principal); N92.0 Excessive and frequent menstruation with regular cycle; K21.9 Gastro-esophageal reflux disease without esophagitis; E03.9 Hypothyroidism, unspecified; Z79.82 Long term (current) use of aspirin; Z79.890 Hormone replacement therapy; Z79.899 Other long term (current) drug therapy; Z86.711 Personal history of pulmonary embolism; Z84.89 Family history of other specified conditions; Z88.5 Allergy status to narcotic agent; Z88.7 Allergy status to serum and vaccine; Z88.8 Allergy status to other drugs, medicaments and biological substances; Z91.040 Latex allergy status
CPT/HCPCS: 81025; 88305; 58563; J2250; J1100; J2405; J2001; J3010; J1885; J2704